=== PATIENT | male | born 1965 | race Caucasian/White ===

== ENCOUNTER 2019-10-28 16:20 | Emergency (ER) | payer OTHER ==
[~2019-10-28] VITALS: Ht 185.4 cm; Wt 93.9 kg
--- OUTSIDE RECORDS SUMMARY | ~2019-10-28 | XMS | Encounter Summary ---
Demographics + + + | Address | [address] | | | [place] [address] | + + + | Home Phone | | + + + | Preferred Language | Unknown | + + + | Marital Status | Legally | + + + | Voodoo Affiliation | 1013 | + + + | Race | Unknown | + + + | Ethnic Group | Unknown | + + + Author + + + | Author | [facility] | | | and [place] | + + + | Organization | [facility] | | | and [place] | + + + | Address | Unknown | + + + | Phone | Unavailable | + + + Support + + + + + | Name | Relationship | Address | Phone | + + + + + | Nikia Borges | ECON | [address] | | | | | [place] [address] | | + + + + + Care Team Providers + +------+ + | Care Technician Telecommunication Systems Name | Role | Phone | + +------+ + | Nikolas Luis MD | PCP | | + +------+ + Encounter Details +--------+ + + + + | Date | Type | Department | Care Team | Description | +--------+ + + + + | 04/25/ | Abstract | [facility] | Ben, | | | 2016 | | CARDIOLOGY [address] | | | | | [place], | [place], | | | | | [place] [address] | [place] [address] | | | | | [phone] | [phone] | | | | | | | | +--------+ + + + + Social History + +-------+ +--------+------+ | Tobacco Use | Types | Packs/Day | Years | Date | | | | | Used | | + +-------+ +--------+------+ | Never Smoker | | | | | + +-------+ +--------+------+ + +---+---+---+ | Smokeless Tobacco: | | | | | Never Used | | | | + +---+---+---+ + + +---------+ + | Alcohol Use | Drinks/Week | oz/Week | Comments | + + +---------+ + | No | 0 Standard drinks | 0.0 | | | | or equivalent | | | + + +---------+ + + + + | Sex Assigned at | Date Recorded | | | | + + + | Not on file | | + + + + + + + | Job Start Date | Occupation | Industry | + + + + | Not on file | Not on file | Not on file | + + + + + + + + | Travel History | Travel Start | Travel End | + + + + + + | No recent travel history available. | + + documented as of this encounter Plan of Treatment Not on filedocumented as of this encounter Procedures + +--------+ + + + | Procedure Name | Priori | Date/Time | Associated Diagnosis | Comments | | | ty | | | | + +--------+ + + + | EXTERNAL LAB: BUN | Routin | 04/22/2017 | | Results for this | | | e | | | procedure are in the | | | | | | results section. | + +--------+ + + + | EXTERNAL LAB: | Routin | 04/22/2017 | | Results for this | | GLUCOSE | e | | | procedure are in the | | | | | | results section. | + +--------+ + + + | EXTERNAL LAB: ALT | Routin | 04/22/2017 | | Results for this | | | e | | | procedure are in the | | | | | | results section. | + +--------+ + + + | EXTERNAL LAB: AST | Routin | 04/22/2017 | | Results for this | | | e | | | procedure are in the | | | | | | results section. | + +--------+ + + + | EXTERNAL LAB: | Routin | 04/22/2017 | | Results for this | | ALKALINE PHOSPHATASE | e | | | procedure are in the | | | | | | results section. | + +--------+ + + + | EXTERNAL LAB: | Routin | 04/22/2017 | | Results for this | | BILIRUBIN, TOTAL | e | | | procedure are in the | | | | | | results section. | + +--------+ + + + | EXTERNAL LAB: | Routin | 04/22/2017 | | Results for this | | ALBUMIN | e | | | procedure are in the | | | | | | results section. | + +--------+ + + + | EXTERNAL LAB: | Routin | 04/22/2017 | | Results for this | | PROTEIN, TOTAL | e | | | procedure are in the | | | | | | results section. | + +--------+ + + + | EXTERNAL LAB: | Routin | 04/22/2017 | | Results for this | | CALCIUM | e | | | procedure are in the | | | | | | results section. | + +--------+ + + + | EXTERNAL LAB: CARBON | Routin | 04/22/2017 | | Results for this | | DIOXIDE | e | | | procedure are in the | | | | | | results section. | + +--------+ + + + | EXTERNAL LAB: | Routin | 04/22/2017 | | Results for this | | CHLORIDE | e | | | procedure are in the | | | | | | results section. | + +--------+ + + + | EXTERNAL LAB: | Routin | 04/22/2017 | | Results for this | | POTASSIUM | e | | | procedure are in the | | | | | | results section. | + +--------+ + + + | EXTERNAL LAB: SODIUM | Routin | 04/22/2017 | | Results for this | | | e | | | procedure are in the | | | | | | results section. | + +--------+ + + + | EXTERNAL LAB: | Routin | 04/22/2017 | | Results for this | | TRIGLYCERIDES | e | | | procedure are in the | | | | | | results section. | + +--------+ + + + | EXTERNAL LAB: | Routin | 04/22/2017 | | Results for this | | CHOLESTEROL, HDL | e | | | procedure are in the | | | | | | results section. | + +--------+ + + + | EXTERNAL LAB: | Routin | 04/22/2017 | | Results for this | | CHOLESTEROL, TOTAL | e | | | procedure are in the | | | | | | results section. | + +--------+ + + + | EXTERNAL LAB: | Routin | 04/22/2017 | | Results for this | | CHOLESTEROL, LDL | e | | | procedure are in the | | | | | | results section. | + +--------+ + + + | EXTERNAL LAB: EGFR | Routin | 04/22/2017 | | Results for this | | | e | | | procedure are in the | | | | | | results section. | + +--------+ + + + | EXTERNAL LAB: | Routin | 04/22/2017 | | Results for this | | CREATININE | e | | | procedure are in the | | | | | | results section. | + +--------+ + + + | LIPID PANEL | Routin | 04/22/2017 | | Results for this | | | e | | | procedure are in the | | | | | | results section. | + +--------+ + + + | COMPREHENSIVE | Routin | 04/22/2017 | | Results for this | | METABOLIC PANEL | e | | | procedure are in the | | | | | | results section. | + +--------+ + + + documented in this encounter Results Comprehensive Metabolic Panel (04/22/2017) + +-------+ + + + | Component | Value | Ref Range | Performed | Pathologist | | | | | At | Signature | + +-------+ + + + | Anion Gap | 13 | mmol/L | | | + +-------+ + + + | BUN/Creatin | 13.3 | | | | | ine Ratio | | | | | + +-------+ + + + | Globulin | 2.2 | | | | + +-------+ + + + | Albumin/Wen | 2.0 | | | | | bulin Ratio | | | | | + +-------+ + + + + + | Specimen | + + | Blood | + + External Lab: BUN (04/22/2017) + +-------+ + + + | Component | Value | Ref Range | Performed | Pathologist | | | | | At | Signature | + +-------+ + + + | BUN, | 13 | 5 - 23 | | | | External | | | | | + +-------+ + + + External Lab: Glucose (04/22/2017) + +-------+ + + + | Component | Value | Ref Range | Performed | Pathologist | | | | | At | Signature | + +-------+ + + + | Glucose, | 96 | 70 - 100 | | | | External | | | | | + +-------+ + + + External Lab: ALT (04/22/2017) + +-------+ + + + | Component | Value | Ref Range | Performed | Pathologist | | | | | At | Signature | + +-------+ + + + | ALT, | 16 | 7 - 52 | | | | External | | | | | + +-------+ + + + External Lab: AST (04/22/2017) + +-------+ + + + | Component | Value | Ref Range | Performed | Pathologist | | | | | At | Signature | + +-------+ + + + | AST, | 19 | 19 - 39 | | | | External | | | | | + +-------+ + + + External Lab: Alkaline Phosphatase (04/22/2017) + +-------+ + + + | Component | Value | Ref Range | Performed | Pathologist | | | | | At | Signature | + +-------+ + + + | ALP, | 52 | 31 - 120 | | | | External | | | | | + +-------+ + + + External Lab: Bilirubin, Total (04/22/2017) + +-------+ + + + | Component | Value | Ref Range | Performed | Pathologist | | | | | At | Signature | + +-------+ + + + | Bilirubin, | 0.9 | 0 - 1.2 | | | | Total, | | | | | | External | | | | | + +-------+ + + + External Lab: Albumin (04/22/2017) + +-------+ + + + | Component | Value | Ref Range | Performed | Pathologist | | | | | At | Signature | + +-------+ + + + | Albumin, | 4.4 | 3.5 - 5 | | | | External | | | | | + +-------+ + + + External Lab: Protein, Total (04/22/2017) + +-------+ + + + | Component | Value | Ref Range | Performed | Pathologist | | | | | At | Signature | + +-------+ + + + | Protein, | 6.6 | 6 - 8 | | | | Total, | | | | | | External | | | | | + +-------+ + + + External Lab: Calcium (04/22/2017) + +-------+ + + + | Component | Value | Ref Range | Performed | Pathologist | | | | | At | Signature | + +-------+ + + + | Calcium, | 9.5 | 8.4 - 10.2 | | | | External | | | | | + +-------+ + + + External Lab: Carbon Dioxide (04/22/2017) + +-------+ + + + | Component | Value | Ref Range | Performed | Pathologist | | | | | At | Signature | + +-------+ + + + | Carbon | 29 | 19 - 31 | | | | Dioxide, | | | | | | External | | | | | + +-------+ + + + External Lab: Chloride (04/22/2017) + +-------+ + + + | Component | Value | Ref Range | Performed | Pathologist | | | | | At | Signature | + +-------+ + + + | Chloride, | 104 | 95 - 112 | | | | External | | | | | + +-------+ + + + External Lab: Potassium (04/22/2017) + +-------+ + + + | Component | Value | Ref Range | Performed | Pathologist | | | | | At | Signature | + +-------+ + + + | Potassium, | 4.3 | 3.6 - 5.1 | | | | External | | | | | + +-------+ + + + External Lab: Sodium (04/22/2017) + +-------+ + + + | Component | Value | Ref Range | Performed | Pathologist | | | | | At | Signature | + +-------+ + + + | Sodium, | 142 | 132 - 143 | | | | External | | | | | + +-------+ + + + External Lab: eGFR (04/22/2017) + +--------+ + + + | Component | Value | Ref Range | Performed | Pathologist | | | | | At | Signature | + +--------+ + + + | eGFR, | 80 (A) | 60 | | | | External | | | | | + +--------+ + + + + + | Specimen | + + | Blood | + + External Lab: Creatinine (04/22/2017) + +-------+ + + + | Component | Value | Ref Range | Performed | Pathologist | | | | | At | Signature | + +-------+ + + + | Creatinine, | 0.98 | 0.7 - 1.33 | | | | External | | | | | + +-------+ + + + + + | Specimen | + + | Blood | + + Lipid Panel (04/22/2017) + +---------+ + + + | Component | Value | Ref Range | Performed | Pathologist | | | | | At | Signature | + +---------+ + + + | VLDL | 25 | mg/dL | | | + +---------+ + + + | Chol/HDL | 4.1 | | | | | Ratio | | | | | + +---------+ + + + | Non HDL | 150 (A) | 130 | | | | Chol. | | | | | | (LDL+VLDL) | | | | | + +---------+ + + + + + | Specimen | + + | Blood | + + External Lab: Triglycerides (04/22/2017) + +-------+ + + + | Component | Value | Ref Range | Performed | Pathologist | | | | | At | Signature | + +-------+ + + + | Triglycerid | 126 | 150 | | | | es, | | | | | | External | | | | | + +-------+ + + + + + | Specimen | + + | Blood | + + External Lab: Cholesterol, HDL (04/22/2017) + + + + + + | Component | Value | Ref Range | Performed | Pathologist | | | | | At | Signature | + + + + + + | HDL | 48.3 (A) | 40 mg/dl | | | | Cholesterol | | | | | | , External | | | | | + + + + + + + + | Specimen | + + | Blood | + + External Lab: Cholesterol, Total (04/22/2017) + +-------+ + + + | Component | Value | Ref Range | Performed | Pathologist | | | | | At | Signature | + +-------+ + + + | Cholesterol | 198 | 200 mg/dl | | | | , Total, | | | | | | External | | | | | + +-------+ + + + + + | Specimen | + + | Blood | + + External Lab: Cholesterol, LDL (04/22/2017) + +---------+ + + + | Component | Value | Ref Range | Performed | Pathologist | | | | | At | Signature | + +---------+ + + + | LDL | 125 (A) | 100 | | | | Cholesterol | | | | | | , Direct, | | | | | | External | | | | | + +---------+ + + + + + | Specimen | + + | Blood | + + documented in this encounter Visit Diagnoses Not on filedocumented in this encounter"
--- OUTSIDE RECORDS SUMMARY | ~2019-10-28 | XMS | Encounter Summary ---
Demographics + + + | Address | [address] | | | [place] [address] | + + + | Home Phone | | + + + | Preferred Language | Unknown | + + + | Marital Status | Legally | + + + | Bahai Affiliation | 1013 | + + + | Race | Unknown | + + + | Ethnic Group | Unknown | + + + Author + + + | Author | [facility] | | | and [place] | + + + | Organization | [facility] | | | and [place] | + + + | Address | Unknown | + + + | Phone | Unavailable | + + + Support + + + + + | Name | Relationship | Address | Phone | + + + + + | Nikia Borges | ECON | [address] | | | | | [place] [address] | | + + + + + Care Team Providers + +------+ + | Care Manager Security Name | Role | Phone | + +------+ + | Nikolas Luis MD | PCP | | + +------+ + Reason for Referral Diagnostic/Screening (Routine) +--------+--------+ + + + + | Status | Reason | Specialty | Diagnoses / | Referred By | Referred To | | | | | Procedures | Contact | Contact | +--------+--------+ + + + + | Closed | | Radiology | Diagnoses | Donna | [facility] | | | | | Chest pain, | MD Jr | Medicine | | | | | unspecified | [address] | | | | | chest pain | [address] | [place], | | | | | type | [place], | [place] | | | | | Procedures | [place] [address] | [address] | | | | | [place] Nuclear | Phone: | Phone: | | | | | Stress Test | [phone] | [phone] | | | | | (Exercise) | Fax: | Fax: | | | | | CHG | [phone] | [phone] | | | | | MYOCARDIAL | | | | | | | SPECT | | | | | | | MULTIPLE | | | | | | | STUDIES GA | | | | | | | CV STRS TST | | | | | | | XERS&/OR RX | | | | | | | CONT ECG W/O | | | | | | | I&R GA | | | | | | | CARDIAC | | | | | | | STRESS | | | | | | | TST,INTERP/R | | | | | | | EPT ONLY | | | +--------+--------+ + + + + Reason for Visit + + + | Reason | Comments | + + + | New Patient | | + + + | Establish Care | | + + + | Chest Pain | | + + + | Palpitations | | + + + Evaluate & Treat (Routine) +--------+--------+ + + + + | Status | Reason | Specialty | Diagnoses / | Referred By | Referred To | | | | | Procedures | Contact | Contact | +--------+--------+ + + + + | Closed | | Cardiology | Diagnoses | David, | Donna, | | | | | Chest pain, | Sukumar Tavarez, | MD Jr | | | | | unspecified | [address] | | | | | ER | [address] | [address] | | | | | FOLLOW-UP | [facility] ER | [place], | | | | | Procedures | [place], | [place] [address] | | | | | PATIENT SAFETY OFFICER | [place] | Phone: | | | | | | [address] | [phone] | | | | | | Phone: | Fax: | | | | | | [phone] | [phone] | | | | | | Fax: | | | | | | | [phone] | | +--------+--------+ + + + + Encounter Details +--------+---------+ + + + | Date | Type | Department | Care Team | Description | +--------+---------+ + + + | 05/27/ | Office | [facility] | Jr Thompson, | Chest pain, | | 2014 | Visit | CARDIOLOGY [address] | unspecified chest | | | | [address], | [place], | [place] ([place] | | | | [place] [id number] | [place] [phone] | Dx); Palpitations | | | | [phone] | [phone] | | | | | | | | +--------+---------+ + + + Social History + +-------+ [...] + + documented as of this encounter Last Filed Vital Signs + + + + + | Vital Sign | Reading | Time Taken | Comments | + + + + + | Blood Pressure | 142/84 | 05/27/2015 11:31 AM | | | | | PST | | + + + + + | Pulse | 62 | 05/27/2015 11:29 AM | regular | | | | PST | | + + + + + | Temperature | - | - | | + + + + + | Respiratory Rate | 16 | 05/27/2015 11:29 AM | | | | | PST | | + + + + + | Oxygen Saturation | - | - | | + + + + + | Inhaled Oxygen | - | - | | | Concentration | | | | + + + + + | Weight | 102.4 kg (225 lb | 05/27/2015 11:29 AM | | | | 11.2 oz) | PST | | + + + + + | Height | 182.9 cm (6') | 05/27/2015 11:29 AM | | | | | PST | | + + + + + | Body Mass Index | 30.61 | 05/27/2015 11:29 AM | | | | | PST | | + + + + + documented in this encounter Patient Instructions Patient Instructions Erica Thomas RN - 05/27/2015 12:18 PM PST1. Blood test: Fasting- 12 hours prior to test, no food, no caffiene, water is ok Date Due: anytime between now and your next visit Where to go for labs: Lab of your choice, please see lab orders, take them with you to the lab. 2. Exercise Myoview Date: Check-in Time: Where to Check In: Instructions 1. Nothing to eat or drink anything 4 hours prior to test 2. DO NOT drink caffeine 12 hours prior to the test. 3. You can take all other medications the morning of the test with a small sip of water. 4. Please bring a list of your current medications with you. 5. Exercise Myoview: wear comfortable clothes and walking shoes. Resting Portion of test: Date: Check-in Time: Where to Check In: 3. Follow up appointment: 4 weeks Provider: Date: Check-In Time: documented in this encounter Progress Notes Jr Thompson MD - 05/27/2015 11:42 AM PSTFormatting of this note might be different f rom the original. PATIENT NAME: Sukumar Pennington : 1965: AGE: 49 y.o. REFERRED BY: Sukumar Hernandez PRIMARY CARE: Nikolas Luis NEW PATIENT OFFICE VISIT Date of Service: 05/27/15 HISTORY OF PRESENT ILLNESS: Sukumar Pennington is a 49 y.o. male with a history of hyperlipidemia. He is being see n today for chest pain. Patient is usually a very active and healthy individual. He is working as a [employer]. He en joys working with the [employer], [employer] building [facility]. He also enjoys working out, walking on treadmill and elliptical machine. He is in his usual state of health until 2 months ago when he started to have symptoms of "pinprick on my chest". Chest pain happens on the left side of the chest wall. He denies other associated symptoms i.e. shortness of breath, palp itation, dizziness, lightheadedness or leg swelling. On 05/24/15, the chest pain got so bad that he decided to come into the ED of [place] where all the original blood work was neg ative. Today, patient continued with occasional, nonexertional chest discomfort. Patient denies breathlessness. There is no palpitation dizziness or lightheadedness. There is no ankle o r leg swelling. Patient can sleep on one pillow at night without difficulty breathing. CURRENT PROBLEMS Patient Active Problem List Diagnosis Chest pain Palpitations MEDICAL, SURGICAL, AND PERSONAL HISTORY Past Surgical History Procedure Laterality Date Hip surgery Right Finger amputation right hand , 4 digits Vasectomy History reviewed. No pertinent family history. Family Status Relation Status Age Mother Alive Heart valve Father 71 Diabetes, Lymphoma Brother Alive Brother Alive Sister Alive History Social History Marital Status: Spouse Name: Nataly Number of Children: 4 Years of Education: N/A Occupational History [employer] Social History Main Topics Smoking status: Never Smoker Smokeless tobacco: Never Used Alcohol Use: No Drug Use: No Sexual Activity: None Other Topics Concern None Social History Narrative Exercise:eliptical machine, weights Caffeine: 1 cup of coffee daily Living situation: with Nataly CURRENT MEDICATIONS Current Outpatient Prescriptions Medication Sig Dispense Refill aspirin 325 mg tablet Take 325 mg by mouth Daily. No current facility-administered medications for this visit. ALLERGIES Allergies Allergen Reactions Simvastatin Rash and Other (See Comments) Body aches, rash , his head felt foggy ROS Review of Systems Constitutional: Negative for fever, chills, weight loss, malaise/fatigue and diaphoresis. HENT: Negative for congestion, hearing loss, nosebleeds, sore throat and tinnitus. Eyes: Negative for blurred vision and double vision. Respiratory: Negative for cough, shortness of breath and wheezing. Cardiovascular: Positive for chest pain and palpitations. Negative for orthopnea, claudicat ion, leg swelling and PND. Gastrointestinal: Negative for heartburn, nausea, vomiting, abdominal pain, diarrhea, const ipation, blood in stool and melena. Genitourinary: Negative for dysuria, urgency, frequency, hematuria and flank pain. Musculoskeletal: Positive for back pain and neck pain. Negative for myalgias, joint pain an d falls. Skin: Negative for itching and rash. Neurological: Negative for dizziness, tingling, tremors, seizures, loss of consciousness, w eakness and headaches. Endo/Heme/Allergies: Negative for environmental allergies and polydipsia. Does not bruise/b leed easily. Psychiatric/Behavioral: Negative for memory loss. The patient does not have insomnia. OBJECTIVE: PHYSICAL EXAM BP 142/84 mmHg | Pulse 62 | Resp 16 | Ht 1.829 m (6') | Wt 102.377 kg (225 lb 11.2 oz) | BM I 30.60 kg/m2 Physical Exam Constitutional: He appears well-developed and well-nourished. No distress. Male individual without acute distress. Neck: Normal carotid pulses, no hepatojugular reflux and no JVD present. Carotid bruit is n ot present. Cardiovascular: Normal rate, regular rhythm, S1 normal, S2 normal, normal heart sounds, int act distal pulses and normal pulses. PMI is not displaced. Exam reveals no gallop, no S3, no S4 and no friction rub. No murmur heard. Pulses: Carotid pulses are 2+ on the right side, and 2+ on the left side. Dorsalis pedis pulses are 2+ on the right side, and 2+ on the left side. Pulmonary/Chest: Effort normal and breath sounds normal. No accessory muscle usage. No resp iratory distress. He has no wheezes. He has no rhonchi. He has no rales. Abdominal: Normal appearance, normal aorta and bowel sounds are normal. He exhibits no abdo cecilia bruit. There is no hepatosplenomegaly. There is no tenderness. Musculoskeletal: He exhibits no edema. Neurological: He is alert. Gait normal. Skin: Skin is warm and dry. Psychiatric: He has a normal mood and affect. His mood appears not anxious. He does not exh ibit a depressed mood. ECG: Sinus rhythm, left ventricular hypertrophy by voltage. LAB RESULTS: LIPID No results found for: CHOL, TRIG, HDL, LDL, CHOLHDL, LDLEX, HDLEX, TRIGEX, CHOLEX CHEMISTRY Lab Results Component Value Date GLU 94 05/24/2015 NA 142 05/24/2015 K 4.1 05/24/2015 CL 103 05/24/2015 CO2 29 05/24/2015 CALCIUM 9.0 05/24/2015 ALKPHOS 60 05/24/2015 AST 22 05/24/2015 ALT 18 05/24/2015 BILITOT 0.8 05/24/2015 CREA 1.05 05/24/2015 BUN 13 05/24/2015 HEMATOLOGY Lab Results Component Value Date WBC 7.4 05/24/2015 HGB 16.3 05/24/2015 HCT 49.0 05/24/2015 PLT 144 05/24/2015 I reviewed records from Sukumar Hernandez M.D. for office visit on 05/24/15. ASSESSMENT: 1. Atypical chest pain A. Patient has been in his usual state of health until 2 months ago when he started to ward ve symptoms of "pinprick on my chest". Chest pain happens on the left side of the chest wal l. He denies other associated symptoms i.e. shortness of breath, palpitation, dizziness, li ghtheadedness or leg swelling. On 05/24/15, the chest pain got so bad that he decided to co me into the ED of [place] where all the original blood work was negative. B. Today, patient continued with occasional, nonexertional chest discomfort. Patient is usually a very active and healthy individual. He is working as a [employer]. 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 He also enjoys working out, walking on [employer] and [employer] machine. There is no signs and symptoms of overt congestive heart failure . He is in a class I of [place] [employer] functional class. There is no fluid ret ention on physical examination. 2. Hyperlipidemia A. He was on simvastatin for 6 months but has stopped taking it 2 months ago. PLAN: 1. I spend time at length talking about natural course, treatment and prognosis of chest p ain rule out myocardial ischemia. 2. He is a candidate for exercise SPECT MPI. 3. Check fasting lipid profile. 4. Follow-up in 4 weeks. Electronically signed by: Jr Thompson MD [facility] 05/27/2015 Portions of this chart may have been created with [employer] voice recognition software. Occasi onal wrong-word or sound-alike substitutions may have occurred due to the inherent sanders itations of voice recognition software. Please read the chart carefully and recognize, using context, where these substitutions have occurred. documented in this encounter Plan of Treatment + +------+--------+ + + | Name | Type | Priori | Associated Diagnoses | Order Schedule | | | | ty | | | + +------+--------+ + + | Lipid Panel | Lab | Routin | Chest pain | Expected: | | | | e | | 05/27/2015, Expires: | | | | | | 05/26/2016 | + +------+--------+ + + documented as of this encounter Procedures + +--------+ + + + | Procedure Name | Priori | Date/Time | Associated Diagnosis | Comments | | | ty | | | | + +--------+ + + + | ECG 12 LEAD | Routin | 05/27/2015 | Chest pain, | Results for this | | | e | 11:34 AM | unspecified chest | procedure are in the | | | | PST | pain type | results section. | | | | | Palpitations | | + +--------+ + + + documented in this encounter Results [place] Nuclear Stress Test (Exercise) (06/06/2015 12:45 PM PST) + + | Specimen | + + | | + + + + + | Impressions | Performed At | + + + | 1. Exercise EKG is negative. 2. Blood pressure | [facility] | | response is normal. 3. The patient had Fatigue but no | [facility] | | chest pain during the procedure. 4. There is no | [facility] | | arrhythmia during procedure. 5. Exercise tolerance is | - IMAGING | | Above average for age. 6. Normal exercise sestamibi | | | myocardial perfusion imaging study. normal left ventricular size, | | | wall thickness and motion. Preserved left ventricular systolic | | | function. LVEF by gated SPECT is 54 %. Signed by: | | | Jr Thompson MD [facility] 06/06/2015, 12:48 | | + + + + + + | Narrative | Performed At | + + + | NUCLEAR MEDICINE STRESS TEST REPORT | [facility] | | Patient Name: Sukumar Pennington Study Date: 06/06/2015 | [facility] | | Primary Care Provider: Nikolas Luis : [facility] | | 1965 Age: 49 y.o. Gender: male CLINICAL | - IMAGING | | HISTORY/DIAGNOSIS: Chest pain EXERCISE SESTAMIBI STRESS TEST | | | Indication: chest pain Procedure: The patient exercised | | | using a standard Ran protocol and walked for 2 minute 0 seconds | | | into stage V achieving 14.8 METS. Total exercise duration was 14 | | | minutes 0 seconds. Heart rate increased from 72 beats per minute | | | to 172 beats per minute which is 101 % of the maximal predicted | | | heart rate. Blood pressure christie from 123/90 mmHg to 181/78 mmHg. The | | | test was stopped because of achievement of targeted heart rate. | | | Baseline EKG showed a sinus rhythm, normal EKG. At the peak of | | | exercise, 10.3 mCi of Sestamibi was given intravenously. The | | | patient was taken to the Nuclear Medicine Department. The SPECT | | | myocardial perfusion imaging was acquired with wall motion analysis. | | | The rest imaging was performed using 30.6 mCi sestamibi | | | intravenous injection. The repeated SPECT myocardial perfusion | | | imaging was acquired with wall motion analysis. Exercise Sestamibi | | | Myocardial Perfusion Imaging Result: The tomographic images, | | | reviewed without the attenuation compensation resolution, revealed | | | a normal myocardial perfusion pattern as seen in short axis, | | | vertical long axis, and horizontal long axis projections. The left | | | ventricular cavity is normal. The rest imaging is also normal. | | | Gated SPECT reveals a normal left ventricular wall thickness | | | and motion. Preserved left ventricular systolic function. LVEF by | | | gated SPECT is 54 %. | | + + + + + + + + | Performing | Address | City/State/Zipcode | Phone Number | | Organization | | | | + + + + + | [address] | [address] | [place] | [phone] | | [facility] | | [address] | | | - IMAGING | | | | + + + + + ECG 12 lead (05/27/2015 11:34 AM PST) + + + + + + | Component | Value | Ref Range | Performed | Pathologist | | | | | At | Signature | + + + + + + | VENTRICULAR | 60 | BPM | [facility] | | | RATE EKG | | | | | + + + + + + | ATRIAL RATE | 60 | BPM | [facility] | | + + + + + + | P-R | 202 | ms | [facility] | | | INTERVAL | | | | | + + + + + + | QRS | 98 | ms | [facility] | | | DURATION | | | | | + + + + + + | Q-T | 412 | ms | [facility] | | | INTERVAL | | | | | + + + + + + | Q-T | 412 | ms | [facility] | | | INTERVAL | | | | | | (CORRECTED) | | | | | + + + + + + | P WAVE AXIS | 59 | degrees | [facility] | | + + + + + + | QRS AXIS | 37 | degrees | [facility] | | + + + + + + | T AXIS | 35 | degrees | [facility] | | + + + + + + | INTERPRETAT | Normal sinus | | [facility] | | | ION TEXT | rhythmMinimal voltage | | | | | | criteria for LVH, may be | | | | | | normal | | | | | | variantBorderline | | | | | | ECGWhen compared with | | | | | | ECG of 24-MAY-2015 | | | | | | 17:59,Criteria for | | | | | | Septal infarct are no | | | | | | longer presentConfirmed | | | | | | by DONNA FLORES, JR | | | | | | ([id number]) on 05/27/2015 | | | | | | 2:02:08 PM | | | | + + + + + + + + | Specimen | + + | | + + + + + | Narrative | Performed At | + + + | | | + + + + +---------+ + + | Performing | Address | City/State/Zipcode | Phone Number | | Organization | | | | + +---------+ + + | [facility] | | | | + +---------+ + + documented in this encounter Visit Diagnoses + + | Diagnosis | + + | Chest pain, unspecified chest pain type - Primary | + + | Palpitations | + + documented in this encounter
--- OUTSIDE RECORDS SUMMARY | ~2019-10-28 | XMS | Clinical Summary ---
Demographics + + + | Address | [address] | | | [place] [address] | + + + | Home Phone | | + + + | Preferred Language | Unknown | + + + | Marital Status | Single | + + + | Mormon Affiliation | 1013 | + + + | Race | Unknown | + + + | Ethnic Group | Unknown | + + + Author + + + | Author | [facility] (Historical as of | | | 02-10-19) | + + + | Organization | [facility] (Historical as of | | | 02-10-19) | + + + | Address | Unknown | + + + | Phone | Unavailable | + + + Support + + +---------+ + | Name | Relationship | Address | Phone | + + +---------+ + | None,Provided | ECON | Unknown | | + + +---------+ + | Anayeli Pretty | ECON | Unknown | | + + +---------+ + Care Team Providers + +------+ + | Care Filenet Admin Name | Role | Phone | + +------+ + | Boy Moran MD | PP | | + +------+ + Allergies Not on File Current Medications Not on file Active Problems Not on file Social History + +-------+ +--------+------+ | Tobacco Use | Types | Packs/Day | Years | Date | | | | | Used | | + +-------+ +--------+------+ | Never Assessed | | | | | + +-------+ +--------+------+ + + + | Sex Assigned at | Date Recorded | | | | + + + | Not on file | | + + + Last Filed Vital Signs + + + + | Vital Sign | Reading | Time Taken | + + + + | Blood Pressure | - | - | + + + + | Pulse | - | - | + + + + | Temperature | - | - | + + + + | Respiratory Rate | - | - | + + + + | Oxygen Saturation | - | - | + + + + | Inhaled Oxygen | - | - | | Concentration | | | + + + + | Weight | 93 kg (205 lb) | 01/24/2019 7:54 AM PDT | + + + + | Height | - | - | + + + + | Body Mass Index | - | - | + + + + Plan of Treatment Not on file Results Not on filefrom Last 3 Months Insurance + +--------+ +------+-------+ + | Payer | Benefi | Subscriber | Type | Phone | Address | | | t Plan | ID | | | | | | / | | | | | | | Group | | | | | + +--------+ +------+-------+ + | MEDICAID | [employer] | [id number] | | | [address] | | | [place] | | | | [place] | | | [place] | | | | [id number] | | | [employer] | | | | | + +--------+ +------+-------+ + + +--------+ +--------+ + + | Guarantor Name | Accoun | Relation to | Date | Phone | Billing Address | | | t Type | Patient | of | | | | | | | | | | + +--------+ +--------+ + + | KULDIP PRETTY | Person | Self [birth year] | Home: | [address] [place], | | | al/Isaac | | 1966 | [phone] [place] [address] | | | adam | | | [birth year] | | + +--------+ +--------+ + +"
--- OUTSIDE RECORDS SUMMARY | ~2019-10-28 | XMS | Encounter Summary ---
Demographics + + + | Address | [address] | | | [place] [address] | + + + | Home Phone | | + + + | Preferred Language | Unknown | + + + | Marital Status | Legally | + + + | Mandaen Affiliation | 1013 | + + + | Race | Unknown | + + + | Ethnic Group | Unknown | + + + Author + + + | Author | [facility] | | | and [place] | + + + | Organization | [facility] | | | and [place] | + + + | Address | Unknown | + + + | Phone | Unavailable | + + + Support + + + + + | Name | Relationship | Address | Phone | + + + + + | Nikia Borges | ECON | [address] | | | | | [place] [address] | | + + + + + Care Team Providers + +------+ + | Care Arborer Name | Role | Phone | + +------+ + | Nikolas Luis MD | PCP | | + +------+ + Reason for Visit + + + | Reason | Comments | + + + | Follow-up | | + + + | Palpitations | | + + + Encounter Details +--------+---------+ + + + | Date | Type | Department | Care Team | Description | +--------+---------+ + + + | 02/18/ | Office | [facility] | [place], | Chest pain in adult | | 2016 | Visit | CARDIOLOGY [address] | [address] | (Primary Dx); | | | | [place], | [place], | Palpitations; | | | | [place] [address] | [place] [address] | Hyperlipidemia, | | | | [phone] | [phone] | mixed | | | | | | | [...] + + + | Blood Pressure | 128/74 | 02/19/2016 11:42 AM | | | | | PDT | | + + + + + | Pulse | 62 | 02/19/2016 11:42 AM | | | | | PDT | | + + + + + | Temperature | - | - | | + + + + + | Respiratory Rate | 14 | 02/19/2016 11:42 AM | | | | | PDT | | + + + + + | Oxygen Saturation | - | - | | + + + + + | Inhaled Oxygen | - | - | | | Concentration | | | | + + + + + | Weight | 104.3 kg (230 lb) | 02/19/2016 11:42 AM | | | | | PDT | | + + + + + | Height | 182.9 cm (6') | 02/19/2016 11:42 AM | | | | | PDT | | + + + + + | Body Mass Index | 31.19 | 02/19/2016 11:42 AM | | | | | PDT | | + + + + + documented in this encounter Progress Notes Vida Sepulveda ARNP - 02/19/2016 11:38 AM PDTFormatting of this note might be different f rom the original. PATIENT NAME: Sukumar Pennington : 1965: AGE: 50 y.o. PRIMARY CARE: Nikolas Luis OUTPATIENT FOLLOW UP VISIT Date of Service: 02/19/2016 HISTORY OF PRESENT ILLNESS: Sukumar Pennington is a 50 y.o. male with a history of mixed hyperlipidemia. He is becky ng seen today for follow up chest pain, hyperlipidemia. He was last seen 08/14/2015 at which time he was to continue same therapeutic medical regim en and follow up in 6 months. Since that time, he has been "feeling well". He has had a goo d energy level. He tries to stay active. He is using the elliptical 45 minutes 6 days a wee k. He enjoys doing projects around his house in his spare time. He has not had any chest pa in or discomfort at rest or with exertion. He has not noticed shortness of breath. He has not had any lightheadedness or dizziness. He has not noticed palpitations. He has not had leg swelling. He sleeps on 1 pillow at night without any shortness of breath. He started red yeast rice. MEDICAL, SURGICAL, AND PERSONAL HISTORY Past Medical, Surgical, Family, and Social History are reviewed in EPIC. CURRENT PROBLEMS Patient Active Problem List Diagnosis Chest pain in adult Palpitations Hyperlipidemia, mixed CURRENT MEDICATIONS Current Outpatient Prescriptions Medication Sig Dispense Refill aspirin 325 mg tablet Take 325 mg by mouth Daily. [place]-3 Fatty Acids (FISH OIL) 1200 MG CAPS Take 1,200 mg by mouth Daily. 30 each 11 pravastatin (PRAVACHOL) 40 MG tablet Take 1 tablet by mouth nightly. 30 tablet 11 No current facility-administered medications for this visit. ALLERGIES Allergies Allergen Reactions Simvastatin Rash and Other (See Comments) Body aches, rash , his head felt foggy ROS Review of Systems Constitutional: Negative for malaise/fatigue. Respiratory: Negative for shortness of breath. Cardiovascular: Negative for chest pain, palpitations and leg swelling. Neurological: Negative for dizziness and weakness. Lightheaded = No OBJECTIVE: PHYSICAL EXAM BP 128/74 mmHg | Pulse 62 | Resp 14 | Ht 1.829 m (6') | Wt 104.327 kg (230 lb) | BMI 31.19 kg/m2 Physical Exam Constitutional: He appears well-developed and well-nourished. No distress. Male individual without acute distress. Neck: Normal carotid pulses, no hepatojugular reflux and no JVD present. Carotid bruit is n ot present. Cardiovascular: Regular rhythm, S1 normal, S2 normal, normal heart sounds, intact distal pu lses and normal pulses. Bradycardia present. PMI is not displaced. Exam reveals no gallop , no S3, no S4 and no friction [...] not exh ibit a depressed mood. ECG: I personally independently reviewed ECG tracing during this visit (interpreted and ricky led by another provider- Dr. Tohmpson) from 05/27/2015. LAB RESULTS reviewed during visit today primarily from [facility]: LIPID Lab Results Component Value Date CHOLHDL 4.0 08/06/2015 LDLEX 123* 08/06/2015 HDLEX 46.7 08/06/2015 TRIGEX 96 08/06/2015 CHOLEX 189 08/06/2015 CHEMISTRY Lab Results Component Value Date GLU 94 05/24/2015 GLUEX 92 08/06/2015 NA 142 05/24/2015 NAEX 142 08/06/2015 K 4.1 05/24/2015 KEX 5 08/06/2015 CL 103 05/24/2015 CLEX 107 08/06/2015 CO2 29 05/24/2015 CO2EX 27 08/06/2015 CALCIUM 9.0 05/24/2015 ALKPHOS 60 05/24/2015 AST 22 05/24/2015 ASTEX 16 08/06/2015 ALT 18 05/24/2015 ALTEX 13 08/06/2015 BILITOT 0.8 05/24/2015 CREA 1.05 05/24/2015 BUN 13 05/24/2015 EGFREX 70 08/06/2015 CREEX 1.11 08/06/2015 HEMATOLOGY Lab Results Component Value Date WBC 7.4 05/24/2015 HGB 16.3 05/24/2015 HCT 49.0 05/24/2015 PLT 144 05/24/2015 I reviewed records from [facility] for office visit on 08/14/2015 which is summarized in the HPI. Above data and testing is reviewed this visit; testing below is historical data unless othe rwise specified. ASSESSMENT: 1. Atypical chest pain: A. Patient has been in his usual [...] to co me into the ED of [place] where all the original blood work was negative. B. Stress Test 06/06/15, shows exercise EKG is negative, blood pressure response is normal , the patient had fatigue but no chest pain during the procedure, there is no arrhythmia dur ing procedure, exercise tolerance is above average for age, normal exercise sestamibi myocar dial perfusion imaging study, normal left ventricular size, wall thickness and motion, prese rved left ventricular systolic function, LVEF by gated SPECT is 54 %. C. Today, patient remains asymptomatic for angina, dyspnea or palpitations. His energy le viecnte is good and he remains physically active exercising on a daily basis without any symptom s. He is in a class I of [place] Heart Association functional class. There is no signs and symptoms of overt congestive heart failure. There are no fluid retention on physical examin ation. 2. Palpitations: A. Holter Monitor 05/24/15, shows predominant rhythm is normal sinus with the heart rate r anging between 48 and 173 BPM, average heart rate was 72 BPM during the 47:30 hour recording , very rare PVC s, all singles, very rare PAC s, 896 runs of bradycardia, the longest ru n was 689 beats (02:56-2) and a minimum rate of 41 BPM (05:36-2), 29 runs of sinus tachycard ia, longest run was 2555 beats (08:10-2) and a maximum rate of 176 BPM (08:38-2), patient re ported two symptoms of upper left chest "twitching or pulsating." B. Symptoms have improved. 3. Hyperlipidemia, mixed: A. His lipid profile has improved drastically. He will continue with same regimen PLAN: 1. The current medical regimen is effective; continue present plan and medications. He ward s been encouraged to continue with physical activity and regular exercise 2. He will follow up in 6 months, or sooner with concerns. He will have lipid profile repe ated before his appointment Portions of this chart may have been created with [employer] voice recognition software. Occasi onal wrong-word or [...] | + +------+--------+ + + | Lipid Profile | Lab | Routin | Hyperlipidemia, | 1 Occurrences | | | | e | mixed | starting 02/19/2016 | | | | | | until 02/18/2017 | + +------+--------+ + + | Comprehensive | Lab | Routin | Hyperlipidemia, | 1 Occurrences | | Metabolic Panel | | e | mixed | starting 02/19/2016 | | | | | | until 02/18/2017 | + +------+--------+ + + documented as of this encounter Visit Diagnoses + + | Diagnosis | + + | Chest pain in adult - Primary | + + | Palpitations | + + | Hyperlipidemia, mixed Mixed hyperlipidemia | + + documented in this encounter
--- OUTSIDE RECORDS SUMMARY | ~2019-10-28 | XMS | Encounter Summary ---
Demographics + + + | Address | [address] | | | [place] [address] | + + + | Home Phone | | + + + | Preferred Language | Unknown | + + + | Marital Status | Legally | + + + | Congregation Affiliation | 1013 | + + + | Race | Unknown | + + + | Ethnic Group | Unknown | + + + Author + + + | Author | [facility] | | | and [place] | + + + | Organization | [facility] | | | and [place] [...] | | | | | [place] [address] | | + + + + + Care Team Providers + +------+ + | Care Immigration Inspector Name | Role | Phone | + [...] Description | +--------+---------+ + + + | 08/24/ | Office | [facility] | [place], | Chest pain in adult | | 2017 | Visit | CARDIOLOGY [address] | [address] | (Primary Dx); | | | | [place], | [place], | Palpitations; | | | | [place] [phone] | [place] [phone] | Hyperlipidemia, | | | | [phone] | [phone] | mixed | | | | | [...] + + + | Blood Pressure | 128/72 | 08/24/2016 9:18 AM | | | | | PST | | + + + + + | Pulse | 76 | 08/24/2016 9:18 AM | | | | | PST | | + + + + + | Temperature | - | - | | + + + + + | Respiratory Rate | 12 | 08/24/2016 9:18 AM | | | | | PST | | + + + + + | Oxygen Saturation | - | - | | + + + + + | Inhaled Oxygen | - | - | | | Concentration | | | | + + + + + | Weight | 100.2 kg (221 lb) | 08/24/2016 9:18 AM | | | | | PST | | + + + + + | Height | 182.9 cm (6') | 08/24/2016 9:18 AM | | | | | PST | | + + + + + | Body Mass Index | 29.97 | 08/24/2016 9:18 AM | | | | | PST | | + + + + + documented in this encounter Progress Notes Vida Contreras ARNP - 08/24/2016 9:12 AM PSTFormatting of this note might be differen t from the original. PATIENT NAME: Sukumar Pennington : 1965: AGE: 50 y.o. PRIMARY CARE: Nikolas Luis OUTPATIENT FOLLOW UP VISIT Date of Service: 08/24/2016 HISTORY OF PRESENT ILLNESS: Sukumar Pennington is a 50 y.o. male with a history of mixed hyperlipidemia. He is becky mikhail seen today for follow up chest pain and hyperlipidemia. He was last seen 02/19/2016 at which time he was to continue pravastatin 40 mg by mouth boom ly at bedtime and follow-up in 6 months. Since that time, patient discontinued taking his p ravastatin and switched to taking red rice yeast instead. His cholesterol panel this minerva joe shows that it his numbers have gone up again. He has had a good energy level. He tries to stay active. He has been exercising He enjoys working around his property in his spare [employer]. He has not had any chest pain or discomfort at rest or with exertion. He has not notic ed shortness of breath. He has not had any lightheadedness or dizziness. He has not notice d palpitations. He has not had leg swelling. He is able to sleep laying down at night with out any symptoms of shortness of breath. He is going to the [facility] and wants to know w hat he needs to take for travel. MEDICAL, SURGICAL, AND PERSONAL HISTORY Past Medical, Surgical, Family, and Social History are reviewed in EPIC. CURRENT PROBLEMS Patient Active Problem List Diagnosis Chest pain in adult Palpitations Hyperlipidemia, mixed CURRENT MEDICATIONS Current Outpatient Prescriptions Medication Sig Dispense Refill aspirin 325 mg tablet Take 325 mg by mouth Daily. [place]-3 Fatty Acids (FISH OIL) 1200 MG CAPS Take 1,200 mg by mouth Daily. 30 each 11 pravastatin (PRAVACHOL) 40 MG tablet Take 1 tablet by mouth nightly. (Patient taking di fferently: Take 40 mg by mouth nightly. PATIENT STATED NO LONGER TAKING THIS MEDICATION. STA FELICIA ON 08/24/2016.) 30 tablet 11 Red Yeast Rice Extract (RED YEAST RICE PO) Take 2 tablets by mouth 2 times daily. No current facility-administered medications for this visit. ALLERGIES Allergies Allergen Reactions Simvastatin Rash and Other (See Comments) Body aches, rash , his head felt foggy ROS Review of Systems Constitutional: Negative for fever, chills, weight loss, malaise/fatigue and diaphoresis. HENT: Negative for congestion, hearing loss, nosebleeds and tinnitus. Dental Problems = No Eyes: Negative for blurred vision and double vision. Respiratory: Negative for shortness of breath. Cardiovascular: Negative for chest pain, palpitations and leg swelling. Gastrointestinal: Negative for nausea, vomiting, diarrhea, constipation and blood in stool. Genitourinary: Negative for dysuria, urgency, frequency and hematuria. Musculoskeletal: Negative for myalgias, back pain, joint pain, falls and neck pain. Gait Problems = No Skin: Negative for itching and rash. Neurological: Negative for dizziness, tingling, tremors, speech change, seizures, loss of c onsciousness and weakness. Lightheaded = No Endo/Heme/Allergies: Does not bruise/bleed easily. Psychiatric/Behavioral: Negative for memory loss. The patient is not nervous/anxious and do es not have insomnia. OBJECTIVE: PHYSICAL EXAM BP 128/72 mmHg | Pulse 76 | Resp 12 | Ht 1.829 m (6') | Wt 100.245 kg (221 lb) | BMI 29.97 kg/m2 Physical Exam Constitutional: He appears well-developed [...] visit (interpreted and ricky led by another provider): Results for orders placed or performed in visit on 08/24/16 ECG 12 lead Result Value Ref Range INTERPRETATION TEXT shows a sinus bradycardia rhythm with a heart rate of 54 bpm with no acute ST T change s. Conduction shows no blocks LAB RESULTS reviewed during visit today primarily from [facility]: LIPID Lab Results Component Value Date CHOLHDL 5.2* 08/13/2016 LDLEX 176* 08/13/2016 HDLEX 46.5 08/13/2016 TRIGEX 108 08/13/2016 CHOLEX 244* 08/13/2016 CHEMISTRY Lab Results Component Value Date GLU 94 05/24/2015 GLUEX 96 08/13/2016 NA 142 05/24/2015 NAEX 141 08/13/2016 K 4.1 05/24/2015 KEX 4.7 08/13/2016 CL 103 05/24/2015 CLEX 105 08/13/2016 CO2 29 05/24/2015 CO2EX 27 08/13/2016 CALCIUM 9.0 05/24/2015 ALKPHOS 60 05/24/2015 AST 22 05/24/2015 ASTEX 19 08/13/2016 ALT 18 05/24/2015 ALTEX 14 08/13/2016 BILITOT 0.8 05/24/2015 CREA 1.05 05/24/2015 BUN 13 05/24/2015 EGFREX 63 08/13/2016 CREEX 1.22 08/13/2016 HEMATOLOGY Lab Results Component Value Date WBC 7.4 05/24/2015 HGB 16.3 05/24/2015 HCT 49.0 05/24/2015 PLT 144 05/24/2015 I reviewed records from [facility] for office visit on 01/2016 whi ch is summarized in the HPI. Above data and testing is reviewed this visit; testing below is historical data unless othe rwise specified. ASSESSMENT: 1. Atypical chest pain: A. Patient has been in his usual state of health until 2 months a go when he started to have symptoms of "pinprick on my chest". Chest pain happens on the l eft side of the chest wall. He denies other associated symptoms i.e. shortness of breath, palpitation, dizziness, lightheadedness or leg swelling. On 05/24/15, the chest pain got s o bad that he decided to come into the ED of [place] where all the original blood work wa s negative. B. Stress Test 06/06/15, shows exercise EKG is negative, blood pres sure response is normal, the patient had fatigue but no chest pain during the procedure, the re is no arrhythmia during procedure, exercise tolerance is above average for age, normal ex ercise sestamibi myocardial perfusion imaging study, normal left ventricular size, wall thic kness and motion, preserved left ventricular systolic function, LVEF by gated SPECT is 54 %. C. Today, patient remains asymptomatic for angina, dyspnea or palpi tations. His energy level is good and he remains physically active exercising on a daily b asis without any symptoms. He is in a class I of [place] Heart Association functional class . There is no signs and symptoms of overt congestive heart failure. There are no fluid ret ention on physical examination. 2. Palpitations: A. Holter Monitor 05/24/15, shows predominant rhythm is normal sinu s with the heart rate ranging between 48 and 173 BPM, average heart rate was 72 BPM during t he 47:30 hour recording, very rare PVC s, all singles, very rare PAC s, 896 runs of deana ycardia, the longest run was 689 beats (02:56-2) and a minimum rate of 41 BPM (05:36-2), 29 runs of sinus tachycardia, longest run was 2555 beats (08:10-2) and a maximum rate of 176 BP M (08:38-2), patient reported two symptoms of upper left chest "twitching or pulsating." B. He remains asymptomatic. 3. Hyperlipidemia, mixed: A. His lipid profile has changed back to his previous numbers. He is not taking statin anymore. We have talked about his [place] scores and he has decided to restart Pravastatin PLAN: 1. Restart pravastatin 40 mg by mouth daily at bedtime 2. He will follow up in 1 year, or sooner with concerns. Portions of this chart may have been created with [employer] voice recognition software. Occasi onal wrong-word or sound-alike substitutions may have occurred due to the inherent sanders itations of voice recognition software. Please read the chart carefully and recognize, using context, where these substitutions have occurred. documented in th is encounter Plan of Treatment Not on filedocumented as of this encounter Procedures + +--------+ + + + | Procedure Name | Priori | Date/Time | Associated Diagnosis | Comments | | | ty | | | | + +--------+ + + + | ECG 12 LEAD | Routin | 08/24/2016 | Chest pain in | Results for this | | | e | 9:27 AM | adult Palpitations | procedure are in the | | | | PST | | results section. | + +--------+ + + + documented in this encounter Results ECG 12 lead (08/24/2016 9:27 AM PST) + + + + + + | Component | Value | Ref Range | Performed | Pathologist | | | | | At | Signature | + + + + + + | VENTRICULAR | 54 | BPM | [facility] | | | RATE EKG | | | | | + + + + + + | ATRIAL RATE | 54 | BPM | [facility] | | + + + + + + | P-R | 202 | ms | [facility] | | | INTERVAL | | | | | + + + + + + | QRS | 100 | ms | [facility] | | | DURATION | | | | | + + + + + + | Q-T | 444 | ms | [facility] | | | INTERVAL | | | | | + + + + + + | Q-T | 421 | ms | [facility] | | | INTERVAL | | | | | | (CORRECTED) | | | | | + + + + + + | P WAVE AXIS | 65 | degrees | [facility] | | + + + + + + | QRS AXIS | 49 | degrees | [facility] | | + + + + + + | T AXIS | 47 | degrees | [facility] | | + + + + + + | INTERPRETAT | Sinus bradycardia with | | [facility] | | | ION TEXT | sinus | | | | | | arrhythmiaOtherwise | | | | | | normal ECGWhen compared | | | | | | with ECG of 27-MAY-2015 | | | | | | 11:34,No significant | | | | | | change was | | | | | | foundConfirmed by | | | | | | JR MANSFIELD MD | | | | | | ([id number]) on 08/24/2016 | | | | | | 12:42:31 PM | | | | + + [...]
--- OUTSIDE RECORDS SUMMARY | ~2019-10-28 | XMS | Encounter Summary ---
Demographics + + + | Address | [address] | | | [place] [address] | + + + | Home Phone | | + + + | Preferred Language | Unknown | + + + | Marital Status | Legally | + + + | Mosque Affiliation | 1013 | + + + | Race | Unknown | + + + | Ethnic Group | Unknown | + + + Author + + + | Author | [facility] | | | and [place] | + + + | Organization | [facility] | | | and [place] | + + + | Address | Unknown | + + + | Phone | Unavailable | + + + Support + + + + + | Name | Relationship | Address | Phone | + + + + + | Nikia Borges | ECON | [address] | | | | | [place] [address] | | + + + + + Care Team Providers + +------+ + | Care Sewer System Supervisor Name | Role | Phone | + +------+ + | Nikolas Luis MD | PCP | | + +------+ + Encounter Details +--------+ + + + + | Date | Type | Department | Care Team | Description | +--------+ + + + + | 01/24/ | Hospital | [facility] | Conversion | Malignant neoplasm | | 2019 | Encounter | [facility] | Transaction, | of prostate (HCC) | | | | [address] | Provider Unknown | | | | | [place], [place] | [phone] | | | | | [address] | (Fax) | | | | | [phone] | | | +--------+ + + + [...] Blood Pressure | - | - | | + + + + + | Pulse | - | - | | + + + + + | Temperature | - | - | | + + + + + | Respiratory Rate | - | - | | + + + + + | Oxygen Saturation | - | - | | + + + + + | Inhaled Oxygen | - | - | | | Concentration | | | | + + + + + | Weight | 93 kg (205 lb) | 01/24/2019 7:54 AM | | | | | PDT | | + + + + + | Height | - | - | | + + + + + | Body Mass Index | 27.8 | 04/27/2017 8:08 AM | | | | | PDT | | + + + + + documented in this encounter Medications at Time of Discharge + + + +---------+ + + | Medication | Sig | Dispensed | Refills | Start | End Date | | | | | | Date | | + + + +---------+ + + | Jeanerette-3 Fatty | Take 1,200 mg by | 30 each | 11 | 06/25/20 | | | Acids (FISH OIL) | mouth Daily. | | | 15 | | | 1200 MG CAPS | | | | | | + + + +---------+ + + | pravastatin | Take 1 tablet by | 90 | 3 | 04/27/20 | | | (PRAVACHOL) 40 MG | mouth nightly. | tablet | | 17 | | | tablet | | | | | | + + + +---------+ + + | Red Yeast Rice | Take 1 tablet by | | 0 | | | | Extract (RED YEAST | mouth every evening. | | | | | | RICE PO) | | | | | | + + + +---------+ + + | sildenafil | Take 1 tablet by | 5 | 1 | 05/26/ | | | (VIAGRA) 25 MG | mouth as needed for | tablet | | 17 | | | tablet | Erectile | | | | | | | Dysfunction. | | | | | + + + +---------+ + + documented as of this encounter Plan of Treatment Not on filedocumented as of this encounter Procedures + +--------+ + + + | Procedure Name | Priori | Date/Time | Associated Diagnosis | Comments | | | ty | | | | + +--------+ + + + | MRI PROSTATE W WO | Routin | 01/24/2019 | | Results for this | | CONTRAST | e | 9:06 AM | | procedure are in the | | | | PDT | | results section. | + +--------+ + + + documented in this encounter Results MRI Prostate w wo Contrast (01/24/2019 9:06 AM PDT) + + | Specimen | + + | | + + + + + | Impressions | Performed At | + + + | 1. Mild prostatomegaly. Multiple BPH nodules seen 2. There is | | | diffuse mild low T2 signal identified throughout the prostate, | | | raising the possibility of prior radiation. Within this background, | | | no convincing evidence of discrete suspicious lesions appreciated | | | 3. No enlarged lymph nodes seen Highest PI RADS score: PI-RADS 2: | | | Low (clinically significant cancer is unlikely to be present) Signed | | | by: Francheska Zamorano, Maikel Sign Date/Time: 01/24/2019 12:24 PM | | + + + + + + | Narrative | Performed At | + + + | MR PELVIS WITHOUT AND WITH IV CONTRAST CLINICAL INFORMATION: | | | Malignant neoplasm of prostate COMPARISON: None PROCEDURE: 1. | | | Axial T1 2. Axial, sagittal, and coronal T2 3. Axial DWI with ADC | | | mapping 4. Axial T2 FS 5. Axial Pre and Post 3D T1 Contrast: 9ML | | | GADAVIST was administered intravenously. FINDINGS: Prostate general: | | | The prostate measures 4.5 cm x 5 cm x 5.1 cm (AP x ML x SI) for a | | | volume of 60 cc. Peripheral zone: There is diffuse mild low T2 signal | | | noted throughout the peripheral zone, suggesting prior radiation | | | changes. No convincing evidence of any discrete suspicious lesions | | | appreciated, although the background change diminishes sensitivity. | | | Transition zone: Typical circumscribed BPH nodules are present. | | | There is diffuse mild low T2 signal identified throughout the | | | transitional zone, suggesting post radiation changes. No convincing | | | evidence of any discrete suspicious lesions appreciated although the | | | background change diminishes sensitivity Anterior fibromuscular | | | stroma: No concerning lesions seen. Pelvic organs: Atrophy of the | | | seminal vesicle seen. No gross evidence of any elmer tumor | | | involvement of the neurovascular bundles appreciated. No enlarged | | | pelvic lymph nodes seen. Urinary bladder is mildly distended. No | | | suspicious lesion noted within the osseous structures, although | | | artifact from right hip metallic hardware diminishes sensitivity. | | + + + + + | Procedure Note | + + | Daryl, Rad Conversion - 02/06/2019 11:32 PM PDT MR PELVIS WITHOUT AND WITH IV CONTRAST | | CLINICAL INFORMATION: | | Malignant neoplasm of prostate | | COMPARISON: | | None | | PROCEDURE: | | 1. Axial T1 | | 2. Axial, sagittal, and coronal T2 | | 3. Axial DWI with ADC mapping | | 4. Axial T2 FS | | 5. Axial Pre and Post 3D T1 | | Contrast: 9ML GADAVIST was administered intravenously. | | FINDINGS: | | Prostate general: The prostate measures 4.5 cm x 5 cm x 5.1 cm (AP x ML | | x SI) for a volume of 60 cc. | | Peripheral zone: There is diffuse mild low T2 signal noted throughout | | the peripheral zone, suggesting prior radiation changes. No convincing | | evidence of any discrete suspicious lesions appreciated, although the | | background change diminishes sensitivity. | | Transition zone: Typical circumscribed BPH nodules are present. There | | is diffuse mild low T2 signal identified throughout the transitional | | zone, suggesting post radiation changes. No convincing evidence of any | | discrete suspicious lesions appreciated although the background change | | diminishes sensitivity | | Anterior fibromuscular stroma: No concerning lesions seen. | | Pelvic organs: | | Atrophy of the seminal vesicle seen. No gross evidence of any elmer | | tumor involvement of the neurovascular bundles appreciated. | | No enlarged pelvic lymph nodes seen. | | Urinary bladder is mildly distended. No suspicious lesion noted within | | the osseous structures, although artifact from right hip metallic | | hardware diminishes sensitivity. | | IMPRESSION: | | 1. Mild prostatomegaly. Multiple BPH nodules seen | | 2. There is diffuse mild low T2 signal identified throughout the | | prostate, raising the possibility of prior radiation. Within this | | background, no convincing evidence of discrete suspicious lesions | | appreciated | | 3. No enlarged lymph nodes seen | | Highest PI RADS score: | | PI-RADS 2: Low (clinically significant cancer is unlikely to be present) | | Signed by: Francheska Zamorano Amit | | Sign Date/Time: 01/24/2019 12:24 PM | + + documented in this encounter Visit Diagnoses + + | Diagnosis | + + | Malignant neoplasm of prostate (HCC) Malignant neoplasm of prostate | + + documented in this encounter"
--- OUTSIDE RECORDS SUMMARY | ~2019-10-28 | XMS | Encounter Summary ---
Demographics + + + | Address | [address] | | | [place] [address] | + + + | Home Phone | | + + + | Preferred Language | Unknown | + + + | Marital Status | Legally | + + + | Yarsanism Affiliation | 1013 | + + + | Race | Unknown | + + + | Ethnic Group | Unknown | + + + Author + + + | Author | [facility] | | | and [place] | + + + | Organization | [facility] | | | and [...] | | | | | [place] [address] | | + + + + + Care Team Providers + +------+ + | Care Patient'S Librarian Name | Role | Phone | + +------+ + | Nikolas Luis MD | PCP | | + +------+ + Encounter Details +--------+ + + + + | Date | Type | Department | Care Team | Description | +--------+ + + + + | 06/16/ | Abstract | [facility] | Nasrin Thompson, | | | 2014 | | CARDIOLOGY [address] | | | | | [place], | [place], | | | | | [place] [phone] | [place] [phone] | | | | | [phone] | [phone] | | | | | | | [...] + | EXTERNAL LAB: | Routin | 05/29/2015 | | Results for this | | TRIGLYCERIDES | e | | | procedure are in the | | | | | | results section. | + +--------+ + + + | EXTERNAL LAB: | Routin | 05/29/2015 | | Results for this | | CHOLESTEROL, HDL | e | | | procedure are in the | | | | | | results section. | + +--------+ + + + | EXTERNAL LAB: | Routin | 05/29/2015 | | Results for this | | CHOLESTEROL, TOTAL | e | | | procedure are in the | | | | | | results section. | + +--------+ + + + | EXTERNAL LAB: | Routin | 05/29/2015 | | Results for this | | CHOLESTEROL, LDL | e | | | procedure are in the | | | | | | results section. | + +--------+ + + + | LIPID PANEL | Routin | 05/29/2015 | | Results for this | | | e | | | procedure are in the | | | | | | results section. | + +--------+ + + + documented in this encounter Results Lipid Panel (05/29/2015) + +---------+ + + + | Component | Value | Ref Range | Performed | Pathologist | | | | | At | Signature | + +---------+ + + + | VLDL | 49 (A) | 4 - 40 | | | | Cholesterol | | | | | | Jay | | | | | + +---------+ + + + | Chol/HDL | 7.3 (A) | 0.0 - 5.0 | | | | Ratio | | | | | + +---------+ + + + | Non HDL | 228 (A) | 0 - 130 | | | | Chol. | | | | | | (LDL+VLDL) | | | | | + +---------+ + + + + + | Specimen | + + | Blood specimen | | (specimen) | + + External Lab: Triglycerides (05/29/2015) + +---------+ + + + | Component | Value | Ref Range | Performed | Pathologist | | | | | At | Signature | + +---------+ + + + | Triglycerid | 244 (A) | 30 - 150 | EXTERNAL | | | es, | | | LAB | | | External | | | | | + +---------+ + + + + + | Specimen | + + | Blood specimen | | (specimen) | + + + + | Resulting Agency Comment | + + | [facility] | + + + +---------+ + + | Performing | Address | City/State/Zipcode | Phone Number | | Organization | | | | + +---------+ + + | EXTERNAL LAB | | | | + +---------+ + + External Lab: Cholesterol, HDL (05/29/2015) + + + + + + | Component | Value | Ref Range | Performed | Pathologist | | | | | At | Signature | + + + + + + | HDL | 36.1 (A) | 40 - 99,999 | EXTERNAL | | | Cholesterol | | mg/dl | LAB | | | , External | | | | | + + + + + + + + | Specimen | + + | Blood specimen | | (specimen) | + + + + | Resulting Agency Comment | + + | [facility] | + + + +---------+ + + | Performing | Address | City/State/Zipcode | Phone Number | | Organization | | | | + +---------+ + + | EXTERNAL LAB | | | | + +---------+ + + External Lab: Cholesterol, Total (05/29/2015) + +---------+ + + + | Component | Value | Ref Range | Performed | Pathologist | | | | | At | Signature | + +---------+ + + + | Cholesterol | 264 (A) | 0 - 200 mg/dl | EXTERNAL | | | , Total, | | | LAB | | | External | | | | | + +---------+ + + + + + | Specimen | + + | Blood specimen | | (specimen) | + + + + | Resulting Agency Comment | + + | [facility] | + + + +---------+ + + | Performing | Address | City/State/Zipcode | Phone Number | | Organization | | | | + +---------+ + + | EXTERNAL LAB | | | | + +---------+ + + External Lab: Cholesterol, LDL (05/29/2015) + +---------+ + + + | Component | Value | Ref Range | Performed | Pathologist | | | | | At | Signature | + +---------+ + + + | LDL | 179 (A) | 0 - 100 | EXTERNAL | | | Cholesterol | | | LAB | | | , Direct, | | | | | | External | | | | | + +---------+ + + + + + | Specimen | + + | Blood specimen | | (specimen) | + + + + | Resulting Agency Comment | + + | [facility] | + + + +---------+ + + | Performing | Address | City/State/Zipcode | Phone Number | | Organization | | | | + +---------+ + + | EXTERNAL LAB | | | | + +---------+ + + documented in this encounter Visit Diagnoses Not on filedocumented in this encounter"
--- OUTSIDE RECORDS SUMMARY | ~2019-10-28 | XMS | Encounter Summary ---
Demographics + + + | Address | [address] | | | [place] [address] | + + + | Home Phone | | + + + | Preferred Language | Unknown | + + + | Marital Status | Single | + + + | Alevism Affiliation | NON | + + + | Race | White | + + + | Ethnic Group | Not or | + + + Author + + + | Author | [facility] | + + + | Organization | [facility] | + + + | Address | Unknown | + + + | Phone | Unavailable | + + + Support + + +---------+---------+ | Name | Relationship | Address | Phone | + + +---------+---------+ | Anayeli Pennington | ECON | Unknown | nophone | + + +---------+---------+ Care Team Providers + +------+ + | Care Medical Or Surgical Instrument Maker Name | Role | Phone | + +------+ + PCP | Unavailable | + +------+ + Reason for Visit +---------+ + | Reason | Comments | +---------+ + | Post Op | right index finger problems | +---------+ + Encounter Details +--------+---------+ + + + | Date | Type | Department | Care Team | Description | +--------+---------+ + + + | 10/07/ | Office | Plastic and | Re, Pls Preop | Amputation Finger | | 2006 | Visit | Reconstructive | [address] | (Primary Dx) | | | | Surgery at [facility] [address] | [facility], | | | | | [address] | [place] [address] | | | | | Mailcode: CH5P | | | | | | [facility] | | | | | | [address] K[address], | | | | | | Building | | | | | | [place], [place] | | | | | | [address] | | | | | | [phone] | | | +--------+---------+ + + + Social History + +-------+ +--------+------+ | Tobacco Use | Types | Packs/Day | Years | Date | | | | | Used | | + +-------+ +--------+------+ | Never Smoker | | | | | + +-------+ +--------+------+ + + +---------+ + | Alcohol Use | Drinks/Week | oz/Week | Comments | + + +---------+ + | No | | | None | + + +---------+ + + + [...] + + documented as of this encounter Progress Notes Dave Cisneros - 11/02/2006 3:19 PM PDTI do not recall having seen this patient or being as ked by Dr. Shaw to see this patient 3:1 9 PM Luz Marina Sofia Md - 10/07/2006 4:03 PM PDTCC: Pt seen in clinic for infection of R in dex finger. HPI: S/p traumatic amputation to the tuft. Pt reports hitting tip of finger with a hammer one week ago. Since then the wound reopened, drained puss. Pt complains of pain, tendernes s and fowl smell over the finger tip. Has been soaking finger daily in epsome salts. Denie s SOB, fever, chills, nausea or vomiting. Has not taken any ABX. PE: Afebrile VSS L hand: other finger wounds well healed. Pinki finger with blackened skin graft well adhered to nail bed, no errythema or drainage. Index finger dressing intact. Pos fowl smell. Obvious drainage. Minimal errythema and sw elling. Pt soaked finger in NS for 10min. Scab removed. Wound swabbed and specimen sent fo r C&S. Piece of nail removed from wound. No visible bone showing. Sterile matrix visible. SILT. Cap refill <2sec. AP: Pt 5wk s/p traumatic partial amputation of L fingers. Presents with wound infection o f L index finger for one week after reinjury with a hammer. 1. Culture and sensitivity sent 2. Keflex for 7d started 3. Pt to f/u with Dr. Cisneros as needed 4. Pt is to go to ER in [place] if symptoms worsen. He was instructed on fever, chills, errythema, increased drainage from wound, etc. Luz Marina Shaw MD documented i n this encounter Plan of Treatment Not on filedocumented as of this encounter Procedures + +--------+ + + + | Procedure Name | Priori | Date/Time | Associated Diagnosis | Comments | | | ty | | | | + +--------+ + + + | CULTURE, WOUND BACTI | Routin | 10/07/2006 | Amputation Finger | Results for this | | & GS | e | 3:30 PM | | procedure are in the | | | | PDT | | results section. | + +--------+ + + + documented in this encounter Results CULT, WOUND BACTI & GS (10/07/2006 3:30 PM PDT) + + + + + + | Component | Value | Ref Range | Performed | Pathologist | | | | | At | Signature | + + + + + + | SOURCE BODY | Finger Abscess | | | | | SITE | | | | | + + + + + + | CULTURE | Wound Culture | | | | | RESULT | | | | | | | Source...............: | | | | | | Finger Abscess RLB Gram | | | | | | Stain...........: | | | | | | Moderate Squamous | | | | | | epithelial cells | | | | | | | | | | | | Few PMN's | | | | | | | | | | | | Moderate | | | | | | Gram positive cocci in | | | | | | clusters Culture: | | | | | | 2+ | | | | | | Staphylococcus aureus | | | | | | | | | | | | Final | | | | | | ID | | | | | | Staphylococcus aureus | | | | | | | | | | | | Prelim | | | | | | ID 1+ Skin darlene. | | | | | | | | | | | | | | | | | | Final ID | | | | | | | | | | | | S. aureus | | | | | | Cefazolin | | | | | | S Clindamycin | | | | | | S Erythromycin | | | | | | S Oxacillin | | | | | | S | | | | | | Penicillin | | | | | | R Trimeth/Sulfa | | | | | | S Vancomycin | | | | | | S Final | | | | | | ReportComment: Test | | | | | | performed at [place] | | | | | | [facility] | | | | | | Laboratory. | | | | + + + + + + + + | Specimen | + + | Abscess - Finger | + + + + + + + | Performing | Address | City/State/Zipcode | Phone Number | | Organization | | | | + + + + + | [facility] | [address] | [place] [address] | | | LAB-MICRO | | | | + + + + + documented in this encounter Visit Diagnoses + + | Diagnosis | + + | Traumatic amputation of other finger(s) (complete) (partial), without mention of | | complication - Primary | + + documented in this encounter"
--- OUTSIDE RECORDS SUMMARY | ~2019-10-28 | XMS | Encounter Summary ---
Demographics + + + | Address | [address] | | | [place] [address] | + + + | Home Phone | | + + + | Preferred Language | Unknown | + + + | Marital Status | Legally | + + + | Confucianism Affiliation | 1013 | + + + | Race | Unknown | + + + | Ethnic Group | Unknown | + + + Author + + + | Author | [facility] | | | and [place] | + + + | Organization | [facility] | | | and [...] | | | | | [place] [address] | | + + + + + Care Team Providers + +------+ + | Care Space Engineer Name | Role | Phone | + +------+ + PCP | Unavailable | + +------+ + Encounter Details +--------+ + + + + | Date | Type | Department | Care Team | Description | +--------+ + + + + | 12/19/ | Hospital | [facility] | | | | 2002 | Encounter | MED CTR XRAY [address] | | | | | | [place] | | | | | | [place] [address] | | | | | | [phone] | | | +--------+ + + + [...] Not on filedocumented as of this encounter Visit Diagnoses Not on filedocumented in this encounter"
--- OUTSIDE RECORDS SUMMARY | ~2019-10-28 | XMS | Encounter Summary ---
Demographics + + + | Address | [address] | | | [place] [address] | + + + | Home Phone | | + + + | Preferred Language | Unknown | + + + | Marital Status | Legally | + + + | Yarsanism Affiliation | 1013 | + + + | Race | Unknown | + + + | Ethnic Group | Unknown | + + + Author + + + | Author | [facility] | | | and [place] | + + + | Organization | [facility] | | | and [place] | + + + | Address | Unknown | + + + | Phone | Unavailable | + + + Support + + + + + | Name | Relationship | Address | Phone | + + + + + | Nikia Borges | ECON | [address] | | | | | [place] [address] | | + + + + + Care Team Providers + +------+ + | Care Activated Sludge Attendant Name | Role | Phone | + +------+ + | Nikolas Luis MD | PCP | | + +------+ + Reason for Visit + + + | Reason | Comments | + + + | Lab Order | due for fasting labs prior to appt | + + + Encounter Details +--------+ + + + + | Date | Type | Department | Care Team | Description | +--------+ + + + + | 08/11/ | Telephone | [facility] | Ben, | Lab Order (due for | | 2016 | | CARDIOLOGY [address] | [address] | fasting labs prior | | | | [place], | [place], | to appt) | | | | [place] [address] | [place] [address] | | | | | [phone] | [phone] | | | | | | | [...]
--- OUTSIDE RECORDS SUMMARY | ~2019-10-28 | XMS | Clinical Summary ---
Demographics + + + | Address | [address] | | | [place] [address] | + + + | Home Phone | | + + + | Preferred Language | Unknown | + + + | Marital Status | Single | + + + | Episcopal Affiliation | NON | + + + | Race | White | + + + | Ethnic Group | Not or | + + + Author + + + | Author | NON REVENUE LOCATIONS | + + + | Organization | NON REVENUE LOCATIONS | + + + | Address | Unknown | + + + | Phone | Unavailable | + + + Support + + +---------+---------+ | Name | Relationship | Address | Phone | + + +---------+---------+ | Anayeli Pennington | ECON | Unknown | nophone | + + +---------+---------+ Care Team Providers + +------+ + | Care Field Sales Manager Name | Role | Phone | + +------+ + | Unknown | PCP | Unavailable | + +------+ + Source Comments REKHA is fully live on both [facility] Ambulatory and [facility] InPatient.[facility] Allergies No Known Allergies Medications + + + +---------+------+------+-------+ | Medication | Sig | Dispensed | Refills | Star | End | Statu | | | | | | t | Date | s | | | | | | Date | | | + + + +---------+------+------+-------+ | KEFLEX 500 MG | Take 1 capsule | 28 | 0 | 04/1 | | Activ | | CAPIndications: | (500mg) by oral | | | 3/20 | | e | | Traumatic amputation | route every 6 hours | | | 07 | | | | of other finger(s) | | | | | | | | (complete) | | | | | | | | (partial), without | | | | | | | | mention of | | | | | | | | complication | | | | | | | + + + +---------+------+------+-------+ Active Problems + + + | Problem | Noted Date | + + + | Traumatic amputation of other finger(s) (complete) (partial), | 08/25/2006 | | without mention of complication | | + + + | Finger laceration | 08/25/2006 | + + + | Status post skin graft | 08/25/2006 | + + + + + | Overview: ICD10 | + + Social History + +-------+ +--------+------+ [...] recent travel history available. | + + Last Filed Vital Signs + + + + + | Vital Sign | Reading | Time Taken | Comments | + + + + + | Blood Pressure | 133/80 | 08/25/2006 10:51 AM | | | | | PST | | + + + + + | Pulse | 68 | 08/25/2006 10:51 AM | | | | | PST | | + + + + + | Temperature | - | - | | + + + + + | Respiratory Rate | - | - | | + + + + + | Oxygen Saturation | 97% | 08/25/2006 10:51 AM | | | | | PST | | + + + + + | Inhaled Oxygen | - | - | | | Concentration | | | | + + + + + | Weight | 99.7 kg (219 lb 14.4 | 08/25/2006 10:51 AM | | | | oz) | PST | | + + + + + | Height | 185.4 cm (6' 1") | 08/25/2006 10:51 AM | | | | | PST | | + + + + + | Body Mass Index | 29.01 | 08/25/2006 10:51 AM | | | | | PST | | + + + + + Plan of Treatment + + + + + | Health Maintenance | Due Date | Last Done | Comments | + + + + + | Influenza (Flu) | | 06/10/2017 | | | vaccination (#1) | 9 | | | + + + + + | Pneumococcal | Aged Out | | No longer eligible | | vaccination | | | based on patient's | | | | | age to complete this | | | | | topic | + + + + + Results Not on filefrom Last 3 Months Insurance + +--------+ +--------+-------+---------+--------+ | Payer | Benefi | Subscriber | Effect | Phone | Address | Type | | | t Plan | ID | zee | | | | | | / | | Dates | | | | | | Group | | | | | | + +--------+ +--------+-------+---------+--------+ | CHILDCARE ADMINISTRATOR MEDICAID | CHILDCARE ADMINISTRATOR | xxxxxxxx | | | | Medica | | | [place] | | 019-[id number] | | | id | | | [place] | | esent | | | | + +--------+ +--------+-------+---------+--------+ + +--------+ +--------+ + + | Guarantor Name | Accoun | Relation to | Date | Phone | Billing Address | | | t Type | Patient | of | | | | | | | | | | + +--------+ +--------+ + + | Sukumar Pennington | Person | Self | [birth year] | | [place], | | | al/Isaac | | 1966 | [phone] | [place] [address] | | | adam | | | 7 (Home) | | + +--------+ +--------+ + +
--- OUTSIDE RECORDS SUMMARY | ~2019-10-28 | XMS | Encounter Summary ---
Demographics + + + | Address | [address] | | | [place] [address] | + + + | Home Phone | | + + + | Preferred Language | Unknown | + + + | Marital Status | Legally | + + + | Alevism Affiliation | 1013 | + + + | Race | Unknown | + + + | Ethnic Group | Unknown | + + + Author + + + | Author | [facility] | | | and [place] | + + + | Organization | [facility] | | | and [place] [...] | | | | | [place] [address] | | + + + + + Care Team Providers + +------+ + | Care Vp Analytics Name | Role | Phone | + +------+ + | Nikolas Luis MD | PCP | | + +------+ + Encounter Details +--------+ + + + + | Date | Type | Department | Care Team | Description | +--------+ + + + + | 08/16/ | Abstract | [facility] | Ben, | | | 2016 | | CARDIOLOGY [address] | [address] | | | | | [place], | [place], | | | | | [place] [address] | [place] [address] | | | | | [phone] | [phone] | | | | | | | [...] | EXTERNAL LAB: BUN | Routin | 08/13/2016 | | Results for this | | | e | 4:12 PM | | procedure are in the | | | | PST | | results section. | + +--------+ + + + | EXTERNAL LAB: | Routin | 08/13/2016 | | Results for this | | GLUCOSE | e | 4:12 PM | | procedure are in the | | | | PST | | results section. | + +--------+ + + + | EXTERNAL LAB: ALT | Routin | 08/13/2016 | | Results for this | | | e | 4:12 PM | | procedure are in the | | | | PST | | results section. | + +--------+ + + + | EXTERNAL LAB: AST | Routin | 08/13/2016 | | Results for this | | | e | 4:12 PM | | procedure are in the | | | | PST | | results section. | + +--------+ + + + | EXTERNAL LAB: | Routin | 08/13/2016 | | Results for this | | ALKALINE PHOSPHATASE | e | 4:12 PM | | procedure are in the | | | | PST | | results section. | + +--------+ + + + | EXTERNAL LAB: | Routin | 08/13/2016 | | Results for this | | BILIRUBIN, TOTAL | e | 4:12 PM | | procedure are in the | | | | PST | | results section. | + +--------+ + + + | EXTERNAL LAB: | Routin | 08/13/2016 | | Results for this | | ALBUMIN | e | 4:12 PM | | procedure are in the | | | | PST | | results section. | + +--------+ + + + | EXTERNAL LAB: | Routin | 08/13/2016 | | Results for this | | PROTEIN, TOTAL | e | 4:12 PM | | procedure are in the | | | | PST | | results section. | + +--------+ + + + | EXTERNAL LAB: | Routin | 08/13/2016 | | Results for this | | CALCIUM | e | 4:12 PM | | procedure are in the | | | | PST | | results section. | + +--------+ + + + | EXTERNAL LAB: CARBON | Routin | 08/13/2016 | | Results for this | | DIOXIDE | e | 4:12 PM | | procedure are in the | | | | PST | | results section. | + +--------+ + + + | EXTERNAL LAB: | Routin | 08/13/2016 | | Results for this | | CHLORIDE | e | 4:12 PM | | procedure are in the | | | | PST | | results section. | + +--------+ + + + | EXTERNAL LAB: | Routin | 08/13/2016 | | Results for this | | POTASSIUM | e | 4:12 PM | | procedure are in the | | | | PST | | results section. | + +--------+ + + + | EXTERNAL LAB: SODIUM | Routin | 08/13/2016 | | Results for this | | | e | 4:12 PM | | procedure are in the | | | | PST | | results section. | + +--------+ + + + | EXTERNAL LAB: | Routin | 08/13/2016 | | Results for this | | TRIGLYCERIDES | e | 4:12 PM | | procedure are in the | | | | PST | | results section. | + +--------+ + + + | EXTERNAL LAB: | Routin | 08/13/2016 | | Results for this | | CHOLESTEROL, HDL | e | 4:12 PM | | procedure are in the | | | | PST | | results section. | + +--------+ + + + | EXTERNAL LAB: | Routin | 08/13/2016 | | Results for this | | CHOLESTEROL, TOTAL | e | 4:12 PM | | procedure are in the | | | | PST | | results section. | + +--------+ + + + | EXTERNAL LAB: | Routin | 08/13/2016 | | Results for this | | CHOLESTEROL, LDL | e | 4:12 PM | | procedure are in the | | | | PST | | results section. | + +--------+ + + + | EXTERNAL LAB: EGFR | Routin | 08/13/2016 | | Results for this | | | e | 4:12 PM | | procedure are in the | | | | PST | | results section. | + +--------+ + + + | EXTERNAL LAB: | Routin | 08/13/2016 | | Results for this | | CREATININE | e | 4:12 PM | | procedure are in the | | | | PST | | results section. | + +--------+ + + + | LIPID PANEL | Routin | 08/13/2016 | | Results for this | | | e | 9:27 AM | | procedure are in the | | | | PST | | results section. | + +--------+ + + + | COMPREHENSIVE | Routin | 08/13/2016 | | Results for this | | METABOLIC PANEL | e | 9:27 AM | | procedure are in the | | | | PST | | results section. | + +--------+ + + + documented in this encounter Results External Lab: DIANE (08/13/2016 4:12 PM PST) + +-------+ + + + | Component | Value | Ref Range | Performed | Pathologist | | | | | At | Signature | + +-------+ + + + | BUN, | 19 | 6 - 23 | EXTERNAL | | | External | | | LAB | | + +-------+ + + + + + | Resulting Agency Comment | + + | [facility] | + + + +---------+ + + | Performing | Address | City/State/Zipcode | Phone Number | | Organization | | | | + +---------+ + + | EXTERNAL LAB | | | | + +---------+ + + External Lab: Glucose (08/13/2016 4:12 PM PST) + +-------+ + + + | Component | Value | Ref Range | Performed | Pathologist | | | | | At | Signature | + +-------+ + + + | Glucose, | 96 | 70 - 100 | EXTERNAL | | | External | | | LAB | | + +-------+ + + + + + | Resulting Agency Comment | + + | [facility] | + + + +---------+ + + | Performing | Address | City/State/Zipcode | Phone Number | | Organization | | | | + +---------+ + + | EXTERNAL LAB | | | | + +---------+ + + External Lab: ALT (08/13/2016 4:12 PM PST) + +-------+ + + + | Component | Value | Ref Range | Performed | Pathologist | | | | | At | Signature | + +-------+ + + + | ALT, | 14 | 7 - 52 | EXTERNAL | | | External | | | LAB | | + +-------+ + + + + + | Resulting Agency Comment | + + | [facility] | + + + +---------+ + + | Performing | Address | City/State/Zipcode | Phone Number | | Organization | | | | + +---------+ + + | EXTERNAL LAB | | | | + +---------+ + + External Lab: AST (08/13/2016 4:12 PM PST) + +-------+ + + + | Component | Value | Ref Range | Performed | Pathologist | | | | | At | Signature | + +-------+ + + + | AST, | 19 | 13 - 39 | EXTERNAL | | | External | | | LAB | | + +-------+ + + + + + | Resulting Agency Comment | + + | [facility] | + + + +---------+ + + | Performing | Address | City/State/Zipcode | Phone Number | | Organization | | | | + +---------+ + + | EXTERNAL LAB | | | | + +---------+ + + External Lab: Alkaline Phosphatase (08/13/2016 4:12 PM PST) + +-------+ + + + | Component | Value | Ref Range | Performed | Pathologist | | | | | At | Signature | + +-------+ + + + | ALP, | 52 | 31 - 120 | EXTERNAL | | | External | | | LAB | | + +-------+ + + + + + | Resulting Agency Comment | + + | [facility] | + + + +---------+ + + | Performing | Address | City/State/Zipcode | Phone Number | | Organization | | | | + +---------+ + + | EXTERNAL LAB | | | | + +---------+ + + External Lab: Bilirubin, Total (08/13/2016 4:12 PM PST) + +-------+ + + + | Component | Value | Ref Range | Performed | Pathologist | | | | | At | Signature | + +-------+ + + + | Bilirubin, | 0.7 | 0 - 1.2 | EXTERNAL | | | Total, | | | LAB | | | External | | | | | + +-------+ + + + + + | Resulting Agency Comment | + + | [facility] | + + + +---------+ + + | Performing | Address | City/State/Zipcode | Phone Number | | Organization | | | | + +---------+ + + | EXTERNAL LAB | | | | + +---------+ + + External Lab: Albumin (08/13/2016 4:12 PM PST) + +-------+ + + + | Component | Value | Ref Range | Performed | Pathologist | | | | | At | Signature | + +-------+ + + + | Albumin, | 4.4 | 3.5 - 5 | EXTERNAL | | | External | | | LAB | | + +-------+ + + + + + | Resulting Agency Comment | + + | [facility] | + + + +---------+ + + | Performing | Address | City/State/Zipcode | Phone Number | | Organization | | | | + +---------+ + + | EXTERNAL LAB | | | | + +---------+ + + External Lab: Protein, Total (08/13/2016 4:12 PM PST) + +-------+ + + + | Component | Value | Ref Range | Performed | Pathologist | | | | | At | Signature | + +-------+ + + + | Protein, | 6.5 | 6 - 8 | EXTERNAL | | | Total, | | | LAB | | | External | | | | | + +-------+ + + + + + | Resulting Agency Comment | + + | [facility] | + + + +---------+ + + | Performing | Address | City/State/Zipcode | Phone Number | | Organization | | | | + +---------+ + + | EXTERNAL LAB | | | | + +---------+ + + External Lab: Calcium (08/13/2016 4:12 PM PST) + +-------+ + + + | Component | Value | Ref Range | Performed | Pathologist | | | | | At | Signature | + +-------+ + + + | Calcium, | 9.5 | 8.4 - 10.2 | EXTERNAL | | | External | | | LAB | | + +-------+ + + + + + | Resulting Agency Comment | + + | [facility] | + + + +---------+ + + | Performing | Address | City/State/Zipcode | Phone Number | | Organization | | | | + +---------+ + + | EXTERNAL LAB | | | | + +---------+ + + External Lab: Carbon Dioxide (08/13/2016 4:12 PM PST) + +-------+ + + + | Component | Value | Ref Range | Performed | Pathologist | | | | | At | Signature | + +-------+ + + + | Carbon | 27 | 19 - 31 | EXTERNAL | | | Dioxide, | | | LAB | | | External | | | | | + +-------+ + + + + + | Resulting Agency Comment | + + | [facility] | + + + +---------+ + + | Performing | Address | City/State/Zipcode | Phone Number | | Organization | | | | + +---------+ + + | EXTERNAL LAB | | | | + +---------+ + + External Lab: Chloride (08/13/2016 4:12 PM PST) + +-------+ + + + | Component | Value | Ref Range | Performed | Pathologist | | | | | At | Signature | + +-------+ + + + | Chloride, | 105 | 95 - 112 | EXTERNAL | | | External | | | LAB | | + +-------+ + + + + + | Resulting Agency Comment | + + | [facility] | + + + +---------+ + + | Performing | Address | City/State/Zipcode | Phone Number | | Organization | | | | + +---------+ + + | EXTERNAL LAB | | | | + +---------+ + + External Lab: Potassium (08/13/2016 4:12 PM PST) + +-------+ + + + | Component | Value | Ref Range | Performed | Pathologist | | | | | At | Signature | + +-------+ + + + | Potassium, | 4.7 | 3.6 - 5.1 | EXTERNAL | | | External | | | LAB | | + +-------+ + + + + + | Resulting Agency Comment | + + | [facility] | + + + +---------+ + + | Performing | Address | City/State/Zipcode | Phone Number | | Organization | | | | + +---------+ + + | EXTERNAL LAB | | | | + +---------+ + + External Lab: Sodium (08/13/2016 4:12 PM PST) + +-------+ + + + | Component | Value | Ref Range | Performed | Pathologist | | | | | At | Signature | + +-------+ + + + | Sodium, | 141 | 132 - 143 | EXTERNAL | | | External | | | LAB | | + +-------+ + + + + + | Resulting Agency Comment | + + | [facility] | + + + +---------+ + + | Performing | Address | City/State/Zipcode | Phone Number | | Organization | | | | + +---------+ + + | EXTERNAL LAB | | | | + +---------+ + + External Lab: Triglycerides (08/13/2016 4:12 PM PST) + +-------+ + + + | Component | Value | Ref Range | Performed | Pathologist | | | | | At | Signature | + +-------+ + + + | Triglycerid | 108 | 30 - 150 | EXTERNAL | | | es, | | | LAB | | | External | | | | | + +-------+ + + + + + | Specimen | + + | Blood specimen | | (specimen) | + + + + | Resulting Agency Comment | + + | [facility] | + + + +---------+ + + | Performing | Address | City/State/Zipcode | Phone Number | | Organization | | | | + +---------+ + + | EXTERNAL LAB | | | | + +---------+ + + External Lab: Cholesterol, HDL (08/13/2016 4:12 PM PST) + +-------+ + + + | Component | Value | Ref Range | Performed | Pathologist | | | | | At | Signature | + +-------+ + + + | HDL | 46.5 | 40 mg/dl | EXTERNAL | | | Cholesterol | | | LAB | | | , External | | | | | + +-------+ + + + + + | Specimen | + + | Blood specimen | | (specimen) | + + + + | Resulting Agency Comment | + + | [facility] | + + + +---------+ + + | Performing | Address | City/State/Zipcode | Phone Number | | Organization | | | | + +---------+ + + | EXTERNAL LAB | | | | + +---------+ + + External Lab: Cholesterol, Total (08/13/2016 4:12 PM PST) + +---------+ + + + | Component | Value | Ref Range | Performed | Pathologist | | | | | At | Signature | + +---------+ + + + | Cholesterol | 244 (A) | 200 mg/dl | EXTERNAL | | | , Total, | | | LAB | | | External | | | | | + +---------+ + + + + + | Specimen | + + | Blood specimen | | (specimen) | + + + + | Resulting Agency Comment | + + | [facility] | + + + +---------+ + + | Performing | Address | City/State/Zipcode | Phone Number | | Organization | | | | + +---------+ + + | EXTERNAL LAB | | | | + +---------+ + + External Lab: Cholesterol, LDL (08/13/2016 4:12 PM PST) + +---------+ + + + | Component | Value | Ref Range | Performed | Pathologist | | | | | At | Signature | + +---------+ + + + | LDL | 176 (A) | 100 | EXTERNAL | | | Cholesterol | | | LAB | | | , Direct, | | | | | | External | | | | | + +---------+ + + + + + | Specimen | + + | Blood specimen | | (specimen) | + + + + | Resulting Agency Comment | + + | [facility] | + + + +---------+ + + | Performing | Address | City/State/Zipcode | Phone Number | | Organization | | | | + +---------+ + + | EXTERNAL LAB | | | | + +---------+ + + External Lab: eGFR (08/13/2016 4:12 PM PST) + +-------+ + + + | Component | Value | Ref Range | Performed | Pathologist | | | | | At | Signature | + +-------+ + + + | eGFR, | 63 | 60 - 999 | EXTERNAL | | | External | | | LAB | | + +-------+ + + + + + | Specimen | + + | Blood specimen | | (specimen) | + + + + | Resulting Agency Comment | + + | [facility] | + + + +---------+ + + | Performing | Address | City/State/Zipcode | Phone Number | | Organization | | | | + +---------+ + + | EXTERNAL LAB | | | | + +---------+ + + External Lab: Creatinine (08/13/2016 4:12 PM PST) + +-------+ + + + | Component | Value | Ref Range | Performed | Pathologist | | | | | At | Signature | + +-------+ + + + | Creatinine, | 1.22 | 0.7 - 1.33 | EXTERNAL | | | External | | | LAB | | + +-------+ + + + + + | Specimen | + + | Blood specimen | | (specimen) | + + + + | Resulting Agency Comment | + + | [facility] | + + + +---------+ + + | Performing | Address | City/State/Zipcode | Phone Number | | Organization | | | | + +---------+ + + | EXTERNAL LAB | | | | + +---------+ + + Comprehensive Metabolic Panel (08/13/2016 9:27 AM PST) + +-------+ + + + | Component | Value | Ref Range | Performed | Pathologist | | | | | At | Signature | + +-------+ + + + | Anion Gap | 14 | 7 - 21 mmol/L | | | + +-------+ + + + | BUN/Creatin | 15.6 | 6.0 - 28.6 | | | | ine Ratio | | | | | + +-------+ + + + | Globulin | 2.1 | 1.8 - 3.5 g/dl | | | + +-------+ + + + | Albumin/Wen | 2.1 | 1.1 - 2.4 | | | | bulin Ratio | | | | | + +-------+ + + + + + | Specimen | + + | Blood specimen | | (specimen) | + + Lipid Panel (08/13/2016 9:27 AM PST) + +---------+ + + + | Component | Value | Ref Range | Performed | Pathologist | | | | | At | Signature | + +---------+ + + + | VLDL | 22 | 4 - 40 mg/dL | | | | Cholesterol | | | | | | Jay | | | | | + +---------+ + + + | Chol/HDL | 5.2 (A) | 5.0 | | | | Ratio | | | | | + +---------+ + + + | Non-HDL | 198 (A) | 130 mg/dL | | | | Cholesterol | | | | | + +---------+ + + + + + | Specimen | + + | Blood specimen | | (specimen) | + + documented in this encounter Visit Diagnoses Not on filedocumented in this encounter"
--- OUTSIDE RECORDS SUMMARY | ~2019-10-28 | XMS | Encounter Summary ---
Demographics + + + | Address | [address] | | | [place] [address] | + + + | Home Phone | | + + + | Preferred Language | Unknown | + + + | Marital Status | Single | + + + | Tenriism Affiliation | NON | + + + | Race | White | + + + | Ethnic Group | Not or | + + + Author + + + | Author | [facility] | + + + | Organization | [facility] | + + + | Address | Unknown | + + + | Phone | Unavailable | + + + Support + + +---------+---------+ | Name | Relationship | Address | Phone | + + +---------+---------+ | Anayeli Pennington | ECON | Unknown | nophone | + + +---------+---------+ Care Team Providers + +------+ + | Care Square Cutter Name | Role | Phone | + +------+ + PCP | Unavailable | + +------+ + Reason for Visit +---------+ + | Reason | Comments | +---------+ + | Post Op | rsf ftsg, rrf & rif revision amp | +---------+ + Encounter Details +--------+---------+ + + + | Date | Type | Department | Care Team | Description | +--------+---------+ + + + | 08/25/ | Office | Plastic and | Bianka Clemons, | Amputation Finger; | | 2006 | Visit | Reconstructive | [facility] [address] | Finger Laceration; | | | | Surgery at [facility] [address] | Skin Graft | | | | [address] | [place], [place] | | | | | Mailcode: [facility] | [address] | | | | | [facility] | [phone] | | | | | and Healing, | | | | | | Building | | | | | | Floor [place], [place] | | | | | | [address] | | | | | | [phone] | | | +--------+---------+ + + + [...] + documented in this encounter Progress Notes Bianka Clemons F - 08/25/2006 12:40 PM PSTFormatting of this note might be different from t he original. Op:08/20/06 Subjective: Sukumar Aditi presents 5 days status post R hand saw injury: 1. Closure of right small fingertip wound with full-thickness skin graft from right groin (1.5 sq cm). 2. Revision amputation of right ring fingertip. 3. Revision amputation of right index fingertip. 4. Repair of volar right thumb laceration (4 cm). with Dave Cisneros MD. Pt is doing remarkably well. He is no longer taking narcotic pain medications. Originally discontinued d/t constipation, but now controling pain with OTC meds prn. He has been doin g daily dressing changes to index finger and thumb. Has not yet removed dressings from ring finger or small finger. Pt denies: fever, chills, nausea, vomiting. No past medical history on file. Past Surgical History Procedure Date Pr pelvis/hip joint surgery unlisted 1999 R hand saw injury, amputations 2006 No Known Allergies. 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 Review of Systems: A complete and full review of systems is otherwise non-contributory. Objective: Gen: NAD BP 133/80 | Pulse 68 | Ht 1.854 m (6' 1") | Wt 99.746 kg (219 lbs 14.4 oz) | SpO2 97% R hand: All incisions c/d/i. Bolster removed from small finger. Skin graft covering nailb ed on small finger pink along radial aspect, whitish along ulnar aspect. No darkened or andrae ckened elmer necrosis. Donor site c/d/i. Assessment: 5 days s/p R hand injury Plan: - continue daily dressing changes to all fingers, supplies of xeroform, gauze given to damian ent - RTC in 10-14 days for suture removal Pt will follow up in 3 weeks with Dave Cisneros MD, ti sagastume. 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
--- OUTSIDE RECORDS SUMMARY | ~2019-10-28 | XMS | Encounter Summary ---
Demographics + + + | Address | [address] | | | [place] [address] | + + + | Home Phone | | + + + | Preferred Language | Unknown | + + + | Marital Status | Legally | + + + | Orthodoxy Affiliation | 1013 | + + + | Race | Unknown | + + + | Ethnic Group | Unknown | + + + Author + + + | Author | [facility] | | | and [place] | + + + | Organization | [facility] | | | and [...] | | | | | [place] [address] | | + + + + + Care Team Providers + +------+ + | Care Dental Secretary Name | Role | Phone | + +------+ + | Boy Moran MD | PCP | | + +------+ + Encounter Details +--------+ + + + + | Date | Type | Department | Care Team | Description | +--------+ + + + + | 05/11/ | Imaging | [facility] | Provider, | | | 2019 | Exam | [facility] | MD [address] | | | | | IMAGING [address] | [address] | | | | | [place] | [place] [address] | | | | | [place] [address] | | | | | | [phone] | | | +--------+ + + + [...] | + +--------+ + + + | XR HIP RIGHT 2-3 | Routin | 05/07/2019 | | Results for this | | VIEWS | e | 12:00 AM | | procedure are in the | | | | PST | | results section. | + +--------+ + + + documented in this encounter Results XR Hip Right 2-3 Views (05/07/2019 12:00 AM PST) + + | Specimen | + + | | + + + + + | Narrative | Performed At | + + + | External films for comparison only | [facility] | | | | | No results will be in the chart. | | + + + + +---------+ + + | Performing | Address | City/State/Zipcode | Phone Number | | Organization | | | | + +---------+ + + | [facility] | | | | + +---------+ + + documented in this encounter Visit Diagnoses Not on filedocumented in this encounter"
--- OUTSIDE RECORDS SUMMARY | ~2019-10-28 | XMS | Encounter Summary ---
Demographics + + + | Address | [address] | | | [place] [address] | + + + | Home Phone | | + + + | Preferred Language | Unknown | + + + | Marital Status | Legally | + + + | Yazdanism Affiliation | 1013 | + + + | Race | Unknown | + + + | Ethnic Group | Unknown | + + + Author + + + | Author | [facility] | | | and [place] | + + + | Organization | [facility] | | | and [place] | + + + | Address | Unknown | + + + | Phone | Unavailable | + + + Support + + + + + | Name | Relationship | Address | Phone | + + + + + | Nikia Borges | ECON | [address] | | | | | [place] [address] | | + + + + + Care Team Providers + +------+ + | Care Ocean Fishing Guide Name | Role | Phone | + +------+ + | Nikolas Luis MD | PCP | | + +------+ + Reason for Visit + + + | Reason | Comments | + + + | Chest Pain | | + + + Encounter Details +--------+ + + + + | Date | Type | Department | Care Team | Description | +--------+ + + + + | 05/24/ | Emergency | [facility] | Mike Hernandezic [place], | Palpitations | | 2015 | | [facility] | MD [address] | (Primary Dx) | | | | CENTER [address] | [facility] [place] | | | | | [place], [place] | [place] [address] | | | | | [address] | [phone] | | | | | [phone] | | | +--------+ + + + [...] +---------+ + | No | | | | + + +---------+ + [...] + + + | Blood Pressure | 125/80 | 05/24/2015 7:45 PM | | | | | PST | | + + + + + | Pulse | 56 | 05/24/2015 7:45 PM | | | | | PST | | + + + + + | Temperature | 36.3 C (97.4 F) | 05/24/2015 6:07 PM | | | | | PST | | + + + + + | Respiratory Rate | 11 | 05/24/2015 7:45 PM | | | | | PST | | + + + + + | Oxygen Saturation | 97% | 05/24/2015 7:45 PM | | | | | PST | | + + + + + | Inhaled Oxygen | - | - | | | Concentration | | | | + + + + + | Weight | 97.5 kg (215 lb) | 05/24/2015 6:07 PM | | | | | PST | | + + + + + | Height | 185.4 cm (6' 0.99") | 05/24/2015 6:07 PM | | | | | PST | | + + + + + | Body Mass Index | 28.37 | 05/24/2015 6:07 PM | | | | | PST | | + + + + + documented in this encounter Discharge Instructions Instructions Sukumar Hernandez MD - 05/24/2015Holter monitor for 48 hours Follow-up with cardiology Return immediately if your symptoms worsen AttachmentsThe following attachments cannot be sent through Care Everywhere.PALPITATIONS (E NGLISH)HOLTER MONITOR (KHMER)documented in this encounter Plan of Treatment Not on filedocumented as of this encounter Procedures + +--------+ + + + | Procedure Name | Priori | Date/Time | Associated Diagnosis | Comments | | | ty | | | | + +--------+ + + + | XR CHEST AP PORTABLE | STAT | 05/24/2015 | | Results for this | | | | 7:11 PM | | procedure are in the | | | | PST | | results section. | + +--------+ + + + | EXTRA GOLD TOP TUBE | Routin | 05/24/2015 | | Results for this | | | e | 6:13 PM | | procedure are in the | | | | PST | | results section. | + +--------+ + + + | EXTRA BLUE TOP TUBE | Routin | 05/24/2015 | | Results for this | | | e | 6:13 PM | | procedure are in the | | | | PST | | results section. | + +--------+ + + + | TROPONIN I | STAT | 05/24/2015 | | Results for this | | | | 6:11 PM | | procedure are in the | | | | PST | | results section. | + +--------+ + + + | CBC WITH | STAT | 05/24/2015 | | Results for this | | DIFFERENTIAL | | 6:11 PM | | procedure are in the | | | | PST | | results section. | + +--------+ + + + | TSH | STAT | 05/24/2015 | | Results for this | | | | 6:11 PM | | procedure are in the | | | | PST | | results section. | + +--------+ + + + | MAGNESIUM | STAT | 05/24/2015 | | Results for this | | | | 6:11 PM | | procedure are in the | | | | PST | | results section. | + +--------+ + + + | COMPREHENSIVE | STAT | 05/24/2015 | | Results for this | | METABOLIC PANEL | | 6:11 PM | | procedure are in the | | | | PST | | results section. | + +--------+ + + + | ECG 12 LEAD | STAT | 05/24/2015 | | Results for this | | | | 5:59 PM | | procedure are in the | | | | PST | | results section. | + +--------+ + + + documented in this encounter Results XR Chest AP Portable (05/24/2015 7:11 PM PST) + + | Specimen | + + | | + + + + + | Narrative | Performed At | + + + | EXAM: XR CHEST AP PORTABLE dated 05/24/2015 6:37 PM HISTORY: | [facility] | | CHEST PAIN Comparison: None. TECHNIQUE: A single portable view | | | of the chest. FINDINGS: The lungs are symmetrically aerated. | | | They are clear. There are no large pleural effusions. There is | | | no pneumothorax. The cardiac and mediastinal contours are not | | | enlarged. The visible osseous structures are unremarkable. | | | IMPRESSION - No acute disease. Dictated and Signed by: Ki Sigala | Isaias Coronado MD Electronically signed: 05/25/2015 1:08 PM | | + + + + + | Procedure Note | + + | Lm Brito Results In - 05/25/2015 1:11 PM PST EXAM: XR CHEST AP PORTABLE dated | | 05/24/2015 6:37 PMHISTORY: CHEST PAINComparison: None.TECHNIQUE: A single portable view | | of the chest.FINDINGS:The lungs are symmetrically aerated. They are clear. There are | | no largepleural effusions. There is no pneumothorax. The cardiac and | | mediastinalcontours are not enlarged. The visible osseous structures are unremarkable. | | IMPRESSION -No acute disease. Dictated and Signed by: Ki Coronado MD | | Electronically signed: 05/25/2015 1:08 PM | | | |FINDINGS: | |The lungs are symmetrically aerated. They are clear. There are no large | |pleural effusions. There is no pneumothorax. The cardiac and mediastinal | |contours are not enlarged. The visible osseous structures are unremarkable. | | | |IMPRESSION - | | | |No acute disease. | | | |Dictated and Signed by: Ki Coronado MD | | Electronically signed: 05/25/2015 1:08 PM | + + + +---------+ + + | Performing | Address | City/State/Zipcode | Phone Number | | Organization | | | | + +---------+ + + | [facility] | | | | + +---------+ + + Extra Gold Top Tube (05/24/2015 6:13 PM PST) + +-------+ + + + | Component | Value | Ref Range | Performed | Pathologist | | | | | At | Signature | + +-------+ + + + | Extra Gold | Done | | [facility] | | | Top Tube | | | [facility] | | | | | | MEDICAL | | | | | | CENTER - | | | | | | LABORATORY | | + +-------+ + + + + + | Specimen | + + | Blood | + + + + + + + | Performing | Address | City/State/Zipcode | Phone Number | | Organization | | | | + + + + + | [facility] | [address] | [place] | [phone] | | [facility] | | [address] | | | - LABORATORY | | | | + + + + + Extra Blue Top Tube (05/24/2015 6:13 PM PST) + +-------+ + + + | Component | Value | Ref Range | Performed | Pathologist | | | | | At | Signature | + +-------+ + + + | Extra Blue | Done | | [facility] | | | Top Tube | | | [facility] | | | | | | MEDICAL | | | | | | CENTER - | | | | | | LABORATORY | | + +-------+ + + + + + | Specimen | + + | Blood | + + + + + + + | Performing | Address | City/State/Zipcode | Phone Number | | Organization | | | | + + + + + | [facility] | [address] | [place] | [phone] | | [facility] | | [address] | | | - LABORATORY | | | | + + + + + Magnesium (05/24/2015 6:11 PM PST) + +-------+ + + + | Component | Value | Ref Range | Performed | Pathologist | | | | | At | Signature | + +-------+ + + + | Magnesium | 2.2 | 1.8 - 2.5 mg/dL | [facility] | | | | | | [facility] | | | | | | MEDICAL | | | | | | CENTER - | | | | | | LABORATORY | | + +-------+ + + + + + | Specimen | + + | Blood | + + + + + + + | Performing | Address | City/State/Zipcode | Phone Number | | Organization | | | | + + + + + | [facility] | [address] | [place] | [phone] | | [facility] | | [address] | | | - LABORATORY | | | | + + + + + TSH (05/24/2015 6:11 PM PST) + + + + + + | Component | Value | Ref Range | Performed | Pathologist | | | | | At | Signature | + + + + + + | TSH | 1.83Comment: All TSH | 0.34 - 5.60 | [facility] | | | | samples are screened | uIU/mL | [facility] | | | | using a 2nd Generation | | MEDICAL | | | | test, and are reflexed | | CENTER - | | | | to a 3rd Generation test | | LABORATORY | | | | if indicated. | | | | + + + + + + + + | Specimen | + + | Blood | + + + + + + + | Performing | Address | City/State/Zipcode | Phone Number | | Organization | | | | + + + + + | [facility] | [address] | [place] | [phone] | | [facility] | | [address] | | | - LABORATORY | | | | + + + + + CBC with Differential (05/24/2015 6:11 PM PST) + +-------+ + + + | Component | Value | Ref Range | Performed | Pathologist | | | | | At | Signature | + +-------+ + + + | WBC | 7.4 | 4.0 - 11.0 K/uL | [facility] | | | | | | [facility] | | | | | | MEDICAL | | | | | | CENTER - | | | | | | LABORATORY | | + +-------+ + + + | RBC | 5.55 | 4.30 - 5.70 | [facility] | | | | | M/uL | [facility] | | | | | | MEDICAL | | | | | | CENTER - | | | | | | LABORATORY | | + +-------+ + + + | Hemoglobin | 16.3 | 13.5 - 18.0 | [facility] | | | | | g/dL | [facility] | | | | | | MEDICAL | | | | | | CENTER - | | | | | | LABORATORY | | + +-------+ + + + | Hematocrit | 49.0 | 40.0 - 51.0 % | [facility] | | | | | | [facility] | | | | | | MEDICAL | | | | | | CENTER - | | | | | | LABORATORY | | + +-------+ + + + | MCV | 88.3 | 83.0 - 101.0 fL | [facility] | | | | | | [facility] | | | | | | MEDICAL | | | | | | CENTER - | | | | | | LABORATORY | | + +-------+ + + + | MCH | 29.3 | 28.0 - 35.0 pg | [facility] | | | | | | [facility] | | | | | | MEDICAL | | | | | | CENTER - | | | | | | LABORATORY | | + +-------+ + + + | MCHC | 33.2 | 32.0 - 36.0 | [facility] | | | | | g/dL | [facility] | | | | | | MEDICAL | | | | | | CENTER - | | | | | | LABORATORY | | + +-------+ + + + | RDW-CV | 13.4 | <15.0 % | [facility] | | | | | | [facility] | | | | | | MEDICAL | | | | | | CENTER - | | | | | | LABORATORY | | + +-------+ + + + | Platelet | 144 | 140 - 440 K/uL | [facility] | | | Count | | | [facility] | | | | | | MEDICAL | | | | | | CENTER - | | | | | | LABORATORY | | + +-------+ + + + | MPV | 8.8 | fL | [facility] | | | | | | [facility] | | | | | | MEDICAL | | | | | | CENTER - | | | | | | LABORATORY | | + +-------+ + + + | % | 64.3 | 45.0 - 82.0 % | [facility] | | | Neutrophils | | | [facility] | | | | | | MEDICAL | | | | | | CENTER - | | | | | | LABORATORY | | + +-------+ + + + | % | 24.9 | 20.0 - 45.0 % | [facility] | | | Lymphocytes | | | [facility] | | | | | | MEDICAL | | | | | | CENTER - | | | | | | LABORATORY | | + +-------+ + + + | % Monocytes | 6.7 | 4.0 - 12.0 % | [facility] | | | | | | [facility] | | | | | | MEDICAL | | | | | | CENTER - | | | | | | LABORATORY | | + +-------+ + + + | % | 3.2 | 0.0 - 5.0 % | [facility] | | | Eosinophils | | | [facility] | | | | | | MEDICAL | | | | | | CENTER - | | | | | | LABORATORY | | + +-------+ + + + | % Basophils | 0.9 | 0.0 - 1.0 % | [facility] | | | | | | [facility] | | | | | | MEDICAL | | | | | | CENTER - | | | | | | LABORATORY | | + +-------+ + + + | Absolute | 4.70 | 1.80 - 8.50 | [facility] | | | Neutrophils | | K/uL | [facility] | | | | | | MEDICAL | | | | | | CENTER - | | | | | | LABORATORY | | + +-------+ + + + | Absolute | 1.80 | 0.60 - 3.20 | [facility] | | | Lymphocytes | | K/uL | [facility] | | | | | | MEDICAL | | | | | | CENTER - | | | | | | LABORATORY | | + +-------+ + + + | Absolute | 0.50 | 0.00 - 1.00 | [facility] | | | Monocytes | | K/uL | [facility] | | | | | | MEDICAL | | | | | | CENTER - | | | | | | LABORATORY | | + +-------+ + + + | Absolute | 0.20 | 0.00 - 0.40 | [facility] | | | Eosinophils | | K/uL | [facility] | | | | | | MEDICAL | | | | | | CENTER - | | | | | | LABORATORY | | + +-------+ + + + | Absolute | 0.10 | 0.00 - 0.10 | [facility] | | | Basophils | | K/uL | [facility] | | | | | | MEDICAL | | | | | | CENTER - | | | | | | LABORATORY | | + +-------+ + + + + + | Specimen | + + | Blood | + + + + + + + | Performing | Address | City/State/Zipcode | Phone Number | | Organization | | | | + + + + + | [facility] | [address] | [place] | [phone] | | [facility] | | [address] | | | - LABORATORY | | | | + + + + + Comprehensive Metabolic Panel (05/24/2015 6:11 PM PST) + + + + + + | Component | Value | Ref Range | Performed | Pathologist | | | | | At | Signature | + + + + + + | Na | 142 | 136 - 149 | [facility] | | | | | mmol/L | [facility] | | | | | | MEDICAL | | | | | | CENTER - | | | | | | LABORATORY | | + + + + + + | K | 4.1 | 3.5 - 5.1 | [facility] | | | | | mmol/L | [facility] | | | | | | MEDICAL | | | | | | CENTER - | | | | | | LABORATORY | | + + + + + + | Cl | 103 | 98 - 109 mmol/L | [facility] | | | | | | [facility] | | | | | | MEDICAL | | | | | | CENTER - | | | | | | LABORATORY | | + + + + + + | CO2 | 29 | 24 - 31 mmol/L | [facility] | | | | | | [facility] | | | | | | MEDICAL | | | | | | CENTER - | | | | | | LABORATORY | | + + + + + + | Anion Gap | 10 | 3 - 16 mmol/L | [facility] | | | | | | [facility] | | | | | | MEDICAL | | | | | | CENTER - | | | | | | LABORATORY | | + + + + + + | Glucose | 94 | 70 - 109 mg/dL | [facility] | | | | | | [facility] | | | | | | MEDICAL | | | | | | CENTER - | | | | | | LABORATORY | | + + + + + + | BUN | 13 | 7 - 18 mg/dL | [facility] | | | | | | [facility] | | | | | | MEDICAL | | | | | | CENTER - | | | | | | LABORATORY | | + + + + + + | Creatinine | 1.05 | 0.60 - 1.30 | [facility] | | | | | mg/dL | [facility] | | | | | | MEDICAL | | | | | | CENTER - | | | | | | LABORATORY | | + + + + + + | eGFR if not | >60Comment: GLOMERULAR | >=60 | [facility] | | | | FILTRATION | mL/min/1.73m2 | [facility] | | | ANGUILLAN | RATE,ESTIMATED | | MEDICAL | | | | mL/min/1.11o9Htsn than | | CENTER - | | | | 60 Chronic kidney | | LABORATORY | | | | disease,if found over a | | | | | | 3-month period.Less than | | | | | | 15 Kidney failureFor | | | | | | | | | | | | Americans,multiply the | | | | | | calculated GFR by 1.21. | | | | | | | | | | + + + + + + | Calcium | 9.0 | 8.3 - 10.5 | [facility] | | | | | mg/dL | [facility] | | | | | | MEDICAL | | | | | | CENTER - | | | | | | LABORATORY | | + + + + + + | Albumin | 4.2 | 3.2 - 5.0 g/dL | [facility] | | | | | | [facility] | | | | | | MEDICAL | | | | | | CENTER - | | | | | | LABORATORY | | + + + + + + | Bilirubin | 0.8 | 0.1 - 1.5 mg/dL | [facility] | | | Total | | | [facility] | | | | | | MEDICAL | | | | | | CENTER - | | | | | | LABORATORY | | + + + + + + | Total | 6.7 | 6.0 - 7.8 g/dL | [facility] | | | Protein | | | [facility] | | | | | | MEDICAL | | | | | | CENTER - | | | | | | LABORATORY | | + + + + + + | AST | 22 | 10 - 42 U/L | [facility] | | | | | | [facility] | | | | | | MEDICAL | | | | | | CENTER - | | | | | | LABORATORY | | + + + + + + | ALT | 18 | 6 - 45 U/L | [facility] | | | | | | [facility] | | | | | | MEDICAL | | | | | | CENTER - | | | | | | LABORATORY | | + + + + + + | Alkaline | 60 | 40 - 110 U/L | [facility] | | | Phosphatase | | | [facility] | | | | | | MEDICAL | | | | | | CENTER - | | | | | | LABORATORY | | + + + + + + | Globulin | 2.5 | g/dL | [facility] | | | | | | [facility] | | | | | | MEDICAL | | | | | | CENTER - | | | | | | LABORATORY | | + + + + + + | Albumin/Wen | 1.7 | | [facility] | | | bulin Ratio | | | [facility] | | | | | | MEDICAL | | | | | | CENTER - | | | | | | LABORATORY | | + + + + + + | BUN/Creatin | 12.4 | | [facility] | | | ine Ratio | | | [facility] | | | | | | MEDICAL | | | | | | CENTER - | | | | | | LABORATORY | | + + + + + + + + | Specimen | + + | Blood | + + + + + + + | Performing | Address | City/State/Zipcode | Phone Number | | Organization | | | | + + + + + | [facility] | [address] | [place] | [phone] | | [facility] | | [address] | | | - LABORATORY | | | | + + + + + Troponin I (05/24/2015 6:11 PM PST) + + + + + + | Component | Value | Ref Range | Performed | Pathologist | | | | | At | Signature | + + + + + + | Troponin I | <0.01Comment: Reference | <0.06 ng/mL | [facility] | | | | Ranges:0.00-0.06 = | | [facility] | | | | NORMAL>0.06 = | | MEDICAL | | | | SUSPICIOUS FOR | | CENTER - | | | | MYOCARDIAL DAMAGE NOTE: | | LABORATORY | | | | Values greater than 0.50 | | | | | | ng/mL have been shown | | | | | | to be strongly | | | | | | associated with acute | | | | | | myocardial infarction. | | | | | | The [employer] | | | | | | Cardiology (ACC) | | | | | | recommends a decision | | | | | | limit of 0.06 ng/mL for | | | | | | this assay. Results | | | | | | greater than 0.06 can | | | | | | reflect a pre-infarct | | | | | | acute coronary syndrome, | | | | | | but can also reflect | | | | | | myocardial necrosis or | | | | | | injury that is not due | | | | | | to coronary artery | | | | | | disease. Some of these | | | | | | causes are sepsis, | | | | | | hypocolemia, atrial | | | | | | fibrillation, heart | | | | | | failure, pulmonary | | | | | | embolism, myocarditis, | | | | | | myocardial contusion, | | | | | | and renal failure. The | | | | | | diagnosis of myocardial | | | | | | infarction should be | | | | | | based on a combination | | | | | | of the patient's | | | | | | clinical presentation | | | | | | and the clinical | | | | | | laboratory test results | | | | | | (especially serial | | | | | | troponin levels). | | | | + + + + + + + + | Specimen | + + | Blood | + + + + + + + | Performing | Address | City/State/Zipcode | Phone Number | | Organization | | | | + + + + + | [facility] | [address] | [place] | [phone] | | [facility] | | [address] | | | - LABORATORY | | | | + + + + + ECG 12 lead (05/24/2015 5:59 PM PST) + + + + + + | Component | Value | Ref Range | Performed | Pathologist | | | | | At | Signature | + + + + + + | VENTRICULAR | 59 | BPM | [facility] | | | RATE EKG | | | | | + + + + + + | ATRIAL RATE | 59 | BPM | [facility] | | + + + + + + | P-R | 208 | ms | [facility] | | | INTERVAL | | | | | + + + + + + | QRS | 94 | ms | [facility] | | | DURATION | | | | | + + + + + + | Q-T | 416 | ms | [facility] | | | INTERVAL | | | | | + + + + + + | Q-T | 411 | ms | [facility] | | | INTERVAL | | | | | | (CORRECTED) | | | | | + + + + + + | P WAVE AXIS | 60 | degrees | [facility] | | + + + + + + | QRS AXIS | 43 | degrees | [facility] | | + + + + + + | T AXIS | 47 | degrees | [facility] | | + + + + + + | INTERPRETAT | Sinus bradycardia with | | [facility] | | | ION TEXT | first-degree AV | | | | | | blockpossible Septal | | | | | | infarct , age | | | | | | undeterminedST segments | | | | | | in leads V2 | | | | | | | | | | | | V4 cannot be interpreted | | | | | | secondary to artifact: | | | | | | Cannot exclude | | | | | | ischemia/infarctionAbnor | | | | | | mal ECG Reconfirmed by | | | | | | PADMINI WYATT MD ([id number]) | | | | | | on 05/26/2015 7:26:25 AM | | | | | | | [...] + | Diagnosis | + + | Palpitations - Primary | + + documented in this encounter
--- OUTSIDE RECORDS SUMMARY | ~2019-10-28 | XMS | Encounter Summary ---
Demographics + + + | Address | [address] | | | [place] [address] | + + + | Home Phone | | + + + | Preferred Language | Unknown | + + + | Marital Status | Legally | + + + | Scientology Affiliation | 1013 | + + + | Race | Unknown | + + + | Ethnic Group | Unknown | + + + Author + + + | Author | [facility] | | | and [place] | + + + | Organization | [facility] | | | and [place] [...] | | | | | [place] [address] | | + + + + + Care Team Providers + +------+ + | Care Straw Hat Machine Operator Name | Role | Phone | + [...] | | | | ANKIT LEVINE | [place] [address] | | | | | [place] [address] | | | | | | [phone] | | | +--------+ + + + [...] + +--------+ + + + | XR LUMBAR SPINE 2 OR | Routin | 05/07/2019 | | Results for this | | 3 VW | e | 12:10 AM | | procedure are in the | | | | PST | | results section. | + +--------+ + + + documented in this encounter Results XR Lumbar Spine 2 or 3 Vw (05/07/2019 12:10 AM PST) + + | Specimen | [...]
--- OUTSIDE RECORDS SUMMARY | ~2019-10-28 | XMS | Encounter Summary ---
Demographics + + + | Address | [address] | | | [place] [address] | + + + | Home Phone | | + + + | Preferred Language | Unknown | + + + | Marital Status | Legally | + + + | Judaism Affiliation | 1013 | + + + | Race | Unknown | + + + | Ethnic Group | Unknown | + + + Author + + + | Author | [facility] | | | and [place] | + + + | Organization | [facility] | | | and [place] [...] | | | | | [place] [address] | | + + + + + Care Team Providers + +------+ + | Care Shirt Folding Machine Operator Name | Role | Phone [...] | CARDIOLOGY [address] | | | | | [place], | [place], | | | | | [place] [address] | [place] [address] | | | | | [phone] | [phone] | | | | | | | [...]
--- OUTSIDE RECORDS SUMMARY | ~2019-10-28 | XMS | Encounter Summary ---
Demographics + + + | Address | [address] | | | [place] [address] | + + + | Home Phone | | + + + | Preferred Language | Unknown | + + + | Marital Status | Legally | + + + | Synagogue Affiliation | 1013 | + + + | Race | Unknown | + + + | Ethnic Group | Unknown | + + + Author + + + | Author | [facility] | | | and [place] | + + + | Organization | [facility] | | | and [place] | + + + | Address | Unknown | + + + | Phone | Unavailable | + + + Support + + + + + | Name | Relationship | Address | Phone | + + + + + | Nikia Borges | ECON | [address] | | | | | [place] [address] | | + + + + + Care Team Providers + +------+ + | Care Environmental Tech Name | Role | Phone | + +------+ + | Nikolas Lusi MD | PCP | | + +------+ + Reason for Visit +--------+ + | Reason | Comments | +--------+ + | Other | IC needed to follow chest pain in ER | +--------+ + Encounter Details +--------+ + + + + | Date | Type | Department | Care Team | Description | +--------+ + + + + | 05/26/ | Telephone | [facility] | Donna Ladyvanesa, | Other (IC needed to | | 2014 | | CARDIOLOGY [address] | [address] | follow chest pain in | | | | [place], | [place], | [place]) | | | | [place] [address] | [place] [address] | | | | | [phone] | [phone] | | | | | | | [...]
--- OUTSIDE RECORDS SUMMARY | ~2019-10-28 | XMS | Encounter Summary ---
Demographics + + + | Address | [address] | | | [place] [address] | + + + | Home Phone | | + + + | Preferred Language | Unknown | + + + | Marital Status | Legally | + + + | Holiness Affiliation | 1013 | + + + | Race | Unknown | + + + | Ethnic Group | Unknown | + + + Author + + + | Author | [facility] | | | and [place] | + + + | Organization | [facility] | | | and [place] [...] | | | | | [place] [address] | | + + + + + Care Team Providers + +------+ + | Care Branding Machine Tender Name | Role | Phone | + [...] | Emergency | [facility] | [facility] [place], | Palpitations | | 2015 | | [facility] | MD [address] | (Primary Dx) | | | | CENTER [address] | [facility] [place] | | | | | [place], [place] | [place] [address] | | | | | [address] | [phone] | | | | | [phone] | | | +--------+ + + + [...] sent through Care Everywhere.PALPITATIONS (E NGLISH)HOLTER MONITOR (MACEDONIAN)documented in this encounter Plan of Treatment Not [...] + | [facility] | [address] | [place] | [phone] | | [facility] | | [address] | | | - LABORATORY | | [...] + | [facility] | [address] | [place] | [phone] | | [facility] | | [address] | | | - LABORATORY | | [...] [address] | [place] | [phone] | | [facility] | | [address] | | | - LABORATORY | | [...] + | [facility] | [address] | [place] | [phone] | | [facility] | | [address] | | | - LABORATORY | | [...] + | [facility] | [address] | [place] | [phone] | | [facility] | | [address] | | | - LABORATORY | | [...] mL/min/1.73m2 | [facility] | | | [facility] | RATE,ESTIMATED | | MEDICAL | | | | mL/min/1.79s9Qgof than | | CENTER - | | [...] [address] | [place] | [phone] | | [facility] | | [address] | | | - LABORATORY | | [...] | | | | | | [employer] | | | | | [...] + | [facility] | [address] | [place] | [phone] | | [facility] | | [address] | | | - LABORATORY | | [...] | | | | PADMINI WYATT MD ([id number]) | | | | | | on [...]
--- OUTSIDE RECORDS SUMMARY | ~2019-10-28 | XMS | Encounter Summary ---
Demographics + + + | Address | [address] | | | [place] [address] | + + + | Home Phone | | + + + | Preferred Language | Unknown | + + + | Marital Status | Legally | + + + | Adventism Affiliation | 1013 | + + + | Race | Unknown | + + + | Ethnic Group | Unknown | + + + Author + + + | Author | [facility] | | | and [place] | + + + | Organization | [facility] | | | and [place] [...] | | | | | [place] [address] | | + + + + + Care Team Providers + +------+ + | Care Fiber Designer Name | Role | Phone | + [...] + | 05/26/ | Telephone | [facility] | Donna Ladyvanesa, | Other (IC needed to | | 2014 | | CARDIOLOGY [address] | [address] [place] | follow chest pain in | | | | [place], | [place], | ER) | | | | [place] [address] | [place] [address] | | | | | [phone] | [phone] | | | | | | | [...]
--- OUTSIDE RECORDS SUMMARY | ~2019-10-28 | XMS | Encounter Summary ---
Demographics + + + | Address | [address] | | | [place] [address] | + + + | Home Phone | | + + + | Preferred Language | Unknown | + + + | Marital Status | Legally | + + + | Jain Affiliation | 1013 | + + + | Race | Unknown | + + + | Ethnic Group | Unknown | + + + Author + + + | Author | [facility] | | | and [place] | + + + | Organization | [facility] | | | and [place] [...] | | | | | [place] [address] | | + + + + + Care Team Providers + +------+ + | Care Aeroplane Pilot Name | Role | Phone | + [...] | | | | ANKIT LEVINE | [place] [address] | | | | | [place] [address] | | | | | | [phone] | | | +--------+ + + + [...] +--------+ + + + | XR HIP LEFT 2-3 | Routin | 05/07/2019 | | Results for this | | VIEWS | e | 12:05 AM | | procedure are in the | | | | PST | | results section. | + +--------+ + + + documented in this encounter Results XR Hip Left 2-3 Views (05/07/2019 12:05 AM PST) + + | Specimen | [...]
--- OUTSIDE RECORDS SUMMARY | ~2019-10-28 | XMS | Encounter Summary ---
Demographics + + + | Address | [address] | | | [place] [address] | + + + | Home Phone | | + + + | Preferred Language | Unknown | + + + | Marital Status | Legally | + + + | Anglican Affiliation | 1013 | + + + | Race | Unknown | + + + | Ethnic Group | Unknown | + + + Author + + + | Author | [facility] | | | and [place] | + + + | Organization | [facility] | | | and [...] | | | | | [place] [address] | | + + + + + Care Team Providers + +------+ + | Care Laundry Superintendent Name | Role | Phone | + [...] + + | 08/24/ | Office | [facility] | Ben, | Chest pain in adult | | 2017 | Visit | CARDIOLOGY [address] | [place] | (Primary Dx); | | | | [place], | [place], | Palpitations; | | | | [place] [address] | [place] [address] | Hyperlipidemia, | | | | [phone] | [phone] | mixed | | | | | [...] around his property in his spare [email or web address]. He has not had any chest pain [...] of breath. He is going to the [facility] and wants to know w hat he needs to take for travel. MEDICAL, SURGICAL, AND PERSONAL HISTORY Past Medical, Surgical, Family, and Social History are reviewed in EPIC. CURRENT PROBLEMS Patient Active Problem List Diagnosis Chest pain in adult Palpitations Hyperlipidemia, mixed CURRENT MEDICATIONS Current Outpatient Prescriptions Medication Sig Dispense Refill aspirin 325 mg tablet Take 325 mg by mouth Daily. Crestone-3 Fatty Acids (FISH OIL) 1200 MG CAPS [...] RESULTS reviewed during visit today primarily from [facility]: LIPID Lab Results Component Value Date [...] PLT 144 05/24/2015 I reviewed records from [facility] for office visit on 01/2016 whi ch [...] decided to come into the ED of [place] where all the original blood work wa [...] He is in a class I of [place] Heart Association functional class . There is [...] statin anymore. We have talked about his Sibley scores and he has decided to restart Pravastatin PLAN: 1. Restart pravastatin 40 mg by mouth daily at bedtime 2. He will follow up in 1 year, or sooner with concerns. Portions of this chart may have been created with [employer] voice recognition software. Occasi onal wrong-word or [...] MD | | | | | | ([id number]) on 08/24/2016 | | | | | [...]
--- OUTSIDE RECORDS SUMMARY | ~2019-10-28 | XMS | Clinical Summary ---
Demographics + + + | Address | [address] | | | [place] [address] | + + + | Home Phone | | + + + | Preferred Language | Unknown | + + + | Marital Status | Single | + + + | Latter Day Affiliation | 1013 | + + + | Race | Unknown | + + + | Ethnic Group | Unknown | + + + Author + + + | Author | [facility] (Historical as of | | | 02-10-19) | + + + | Organization | [facility] (Historical as of | | | 02-10-19) [...] Team Providers + +------+ + | Care Lockstitch Zipper Setter Name | Role | Phone | + [...] +------+-------+ + | MEDICAID | [place] | [id number] | | | [address] | | | [place] | | | | [place] | | | [place] | | | | [address] | | | [employer] | | | | | + +--------+ [...] | | al/Isaac | | 1966 | [phone] [place] [address] | | | adam | | | [birth year] | | + +--------+ +--------+ + +"
--- OUTSIDE RECORDS SUMMARY | ~2019-10-28 | XMS | Encounter Summary ---
Demographics + + + | Address | [address] | | | [place] [address] | + + + | Home Phone | | + + + | Preferred Language | Unknown | + + + | Marital Status | Legally | + + + | Amish Affiliation | 1013 | + + + | Race | Unknown | + + + | Ethnic Group | Unknown | + + + Author + + + | Author | [facility] | | | and [place] | + + + | Organization | [facility] | | | and [place] [...] | | | | | [place] [address] | | + + + + + Care Team Providers + +------+ + | Care Primary Products Inspectors Name | Role | Phone | + +------+ + | Nikolas Luis MD | PCP | | + +------+ + Reason for Visit + + + | Reason | Comments | + + + | Appointment | | + + + Encounter Details +--------+ + + + + | Date | Type | Department | Care Team | Description | +--------+ + + + + | 08/13/ | Telephone | [facility] | Ben, | Appointment | | 2016 | | CARDIOLOGY [address] | [facility] [address] | | | | | [place], | [place], | | | | | [place] [address] | [place] [address] | | | | | [phone] | | | | | | | [...]
--- OUTSIDE RECORDS SUMMARY | ~2019-10-28 | XMS | Encounter Summary ---
Demographics + + + | Address | [address] | | | [place] [address] | + + + | Home Phone | | + + + | Preferred Language | Unknown | + + + | Marital Status | Legally | + + + | Mandaen Affiliation | 1013 | + + + | Race | Unknown | + + + | Ethnic Group | Unknown | + + + Author + + + | Author | [facility] | | | and [place] | + + + | Organization | [facility] | | | and [...] | | | | | [place] [address] | | + + + + + Care Team Providers + +------+ + | Care Biopharmaceutical Rep Name | Role | Phone | + +------+ + | Nikolas Luis MD | PCP | | + +------+ + Reason for Visit + + + | Reason | Comments | + + + | Follow-up | | + + + | Chest Pain | | + + + Encounter Details +--------+---------+ + + + | Date | Type | Department | Care Team | Description | +--------+---------+ + + + | 06/25/ | Office | [facility] | [place], | Palpitations | | 2015 | Visit | CARDIOLOGY [address] | [address] | (Primary Dx); Chest | | | | [place], | [place], | pain in adult; | | | | [place] [phone] | [place] [phone] | Hypercholesterolemia | | | | [phone] | [phone] | | | | | | | [...] + + + | Blood Pressure | 128/82 | 06/25/2015 12:51 PM | | | | | PST | | + + + + + | Pulse | 66 | 06/25/2015 12:51 PM | | | | | PST | | + + + + + | Temperature | - | - | | + + + + + | Respiratory Rate | 18 | 06/25/2015 12:51 PM | | | | | PST | | + + + + + | Oxygen Saturation | - | - | | + + + + + | Inhaled Oxygen | - | - | | | Concentration | | | | + + + + + | Weight | 102.5 kg (226 lb) | 06/25/2015 12:51 PM | | | | | PST | | + + + + + | Height | 182.9 cm (6') | 06/25/2015 12:51 PM | | | | | PST | | + + + + + | Body Mass Index | 30.65 | 06/25/2015 12:51 PM | | | | | PST | | + + + + + documented in this encounter Patient Instructions Patient Instructions Vida Sepulveda ARNP - 06/25/2015 4:43 PM PST1. Start Pravastatin 40 mg once every evening by mouth 2. Check lipid profile and CMP in 6 weeks. 3. Start Fish oil 1200 mg once every day 4. Follow up in 7 weeks with labs or sooner if any concerns documented in this encounter Progress Notes Vida Sepulveda ARNP - 06/25/2015 12:44 PM PSTFormatting of this note might be different f rom the original. PATIENT NAME: Sukumar Pennington : 1965: AGE: 49 y.o. PRIMARY CARE: Nikolas Luis OUTPATIENT FOLLOW UP VISIT Date of Service: 06/25/2015 HISTORY OF PRESENT ILLNESS: Sukumar Pennington is a 49 y.o. male with a history of hyperlipidemia. He is being see n today for follow up stress test results and Holter monitor for chest pain discomfort. He was last seen 05/27/2015 at which time he was scheduled for stress test and Holter monit or with also a lipid profile and a follow-up appointment in 4 months. Since that time, he h as been feeling "pretty good". He has had a good energy level. He tries to stay active. He does 30 minutes of cardio and lifts weight 15-20 minutes every day. He enjoys working out in his spare time. He has not had any chest pain or discomfort at rest or with exertion. He has not noticed shortness of breath. He has not had any lightheadedness or dizziness. Flo adair has had "flip flopping feeling in his heart" that associates with some pressure. This has not gotten any worse, on the contrary it has gotten better. He noticed those symptoms increa sed when he started taking 2 cups a coffee more a day. He has not had leg swelling. He is able to sleep laying down at night without any symptoms of shortness of breath. Overall his cardiac complaints have been better. MEDICAL, SURGICAL, AND PERSONAL HISTORY Past Medical, Surgical, Family, and Social History are reviewed in EPIC. CURRENT PROBLEMS Patient Active Problem List Diagnosis Chest pain in adult Palpitations Hyperlipidemia CURRENT MEDICATIONS Current Outpatient Prescriptions Medication Sig [...] Lightheaded = No OBJECTIVE: PHYSICAL EXAM BP 128/82 mmHg | Pulse 66 | Resp 18 | Ht 1.829 m (6') | Wt 102.513 kg (226 lb) | BMI 30.64 kg/m2 Physical Exam Constitutional: He appears well-developed [...] ibit a depressed mood. ECG: I personally reviewed ECG tracing from 05/27/2015. LAB RESULTS: LIPID Lab Results Component Value Date CHOLHDL 7.3* 05/29/2015 LDLEX 179* 05/29/2015 HDLEX 36.1* 05/29/2015 TRIGEX 244* 05/29/2015 CHOLEX 264* 05/29/2015 CHEMISTRY Lab Results Component Value Date GLU [...] PLT 144 05/24/2015 I reviewed records from [facility] for office visit on 05/27/2015. ASSESSMENT: 1. Atypical chest pain A. Patient [...] to co me into the ED of [place] where all the original blood work was [...] SPECT is 54 %. C. Today, patient has had no further episodes of chest pressure or palpitations. Overall h e is feeling better. He remains physically active without any symptoms. He is in a class I of [place] [employer] functional class. There is no signs and symptoms of overt con gestive heart failure. There are no fluid retention on physical examination. 2. Palpitations: A. Holter [...] or pulsating." B. Symptoms have improved. 3. Hyperlipidemia A. He was on simvastatin for 6 months but has stopped taking it 2 months ago. B. His lipid profile today shows borderline hyperlipidemia. He has a strong family history of coronary artery disease and hyperlipidemia. He will try to restart a statin. He has trie d simvastatin and atorvastatin with side effects of lip numbness and tingling. We will try a different statin since patient does not known coronary artery disease or diabetes. PLAN: 1. Start Pravastatin 40 mg once every evening by mouth 2. Check lipid profile and CMP in 6 weeks. 3. Start Fish oil 1200 mg once every day 4. Follow up in 7 weeks with labs or sooner if any concerns Portions of this chart may have been created with [employer] voice recognition software. Occasi onal wrong-word or [...] Lipid Profile | Lab | Routin | | 1 Occurrences | | | | e | Hypercholesterolemia | starting 06/25/2015 | | | | | | until 06/25/2016 | + +------+--------+ + + | Comprehensive | Lab | Routin | | 1 Occurrences | | Metabolic Panel | | e | Hypercholesterolemia | starting 06/25/2015 | | | | | | until 06/25/2016 | + +------+--------+ + + documented as of this encounter Visit Diagnoses + + | Diagnosis | + + | Palpitations - Primary | + + | Chest pain in adult | + + | Hypercholesterolemia Pure hypercholesterolemia | + + documented in this encounter
--- OUTSIDE RECORDS SUMMARY | ~2019-10-28 | XMS | Clinical Summary ---
Demographics + + + | Address | [address] | | | [place] [address] | + + + | Home Phone | | + + + | Preferred Language | Unknown | + + + | Marital Status | Legally | + + + | Worship Affiliation | 1013 | + + + | Race | Unknown | + + + | Ethnic Group | Unknown | + + + Author + + + | Author | [facility] | | | and [place] | + + + | Organization | [facility] | | | and [...] | | | | | [place] [address] | | + + + + + Care Team Providers + +------+ + | Care Movie Projectionist Name | Role | Phone | + +------+ + | Boy Moran MD | PCP | | + +------+ + Allergies + + + + + + | Active Allergy | Reactions | Severity | Noted | Comments | | | | | Date | | + + + + + + | Atorvastatin | Other (See Comments) | | 10/12/19 | Numb lips and | | | | | 18 | tongue | + + + + + + | Simvastatin | Rash, Other (See | Low | 05/27/20 | Body aches, rash | | | Comments) | | 15 | , his head felt | | | | | | foggy | + + + + + + Medications + + + +---------+------+------+-------+ | Medication | Sig | Dispensed | Refills | Star | End | Statu | | | | | | t | Date | s | | | | | | Date | | | + + + +---------+------+------+-------+ | Sparkman-3 Fatty | Take 1,200 mg by | 30 each | 11 | 12/3 | | Activ | | Acids (FISH OIL) | mouth Daily. | | | 0/20 | | e | | 1200 MG CAPS | | | | 15 | | | + + + +---------+------+------+-------+ | Red Yeast Rice | Take 1 tablet by | | 0 | | | Activ | | Extract (RED YEAST | mouth every evening. | | | | | e | | RICE PO) | | | | | | | + + + +---------+------+------+-------+ | pravastatin | Take 1 tablet by | 90 | 3 | 11/0 | | Activ | | (PRAVACHOL) 40 MG | mouth nightly. | tablet | | 1/20 | | e | | tablet | | | | 17 | | | + + + +---------+------+------+-------+ | sildenafil | Take 1 tablet by | 5 | 1 | 11/3 | | Activ | | (VIAGRA) 25 MG | mouth as needed for | tablet | | 0/20 | | e | | tablet | Erectile | | | 17 | | | | | Dysfunction. | | | | | | + + + +---------+------+------+-------+ | ciprofloxacin | Take 1 tab po 1 hour | 6 | 0 | 09/ | | Activ | | (CIPRO) 500 mg | prior to biopsy; | tablet | | 10/14 | | e | | tablet | then take 1 tab po | | | 19 | | | | | every 12 hours | | | | | | | | thereafter | | | | | | + + + +---------+------+------+-------+ Active Problems + + + | Problem | Noted Date | + + + | Prostate cancer | 02/28/2019 | + + + | Chest pain in adult | | + + + + + | Overview: Stress Test 06/06/15, shows exercise EKG is | | negative, blood pressure response is normal, the patient had | | Fatigue but no chest pain during the procedure, there is no | | arrhythmia during procedure, exercise tolerance is above average | | for age, normal exercise sestamibi myocardial perfusion imaging | | study, normal left ventricular size, wall thickness and motion, | | preserved left ventricular systolic function, LVEF by gated SPECT | | is 54 %. | + + + +---+ | Palpitations | | + +---+ + + | Overview: Holter Monitor 05/24/15, shows predominant rhythm | | is normal sinus with the heart rate ranging between 48 and 173 | | BPM, average heart rate was 72 BPM during the 47:30 hour | | recording, very rare PVC | | | | s, all singles, very rare PAC | | | | s, 896 runs of bradycardia, the longest run was 689 beats | | (02:56-2) and a minimum rate of 41 BPM (05:36-2), 29 runs of | | sinus tachycardia, longest run was 2555 beats (08:10-2) and a | | maximum rate of 176 BPM (08:38-2), patient reported two symptoms | | of upper left chest "twitching or pulsating." | + + + +---+ | Hyperlipidemia, mixed | | + +---+ Immunizations + + + + | Name | Administration Dates | Next Due | + + + + | INFLUENZA TRIV | 06/10/2017 | | | W/PRES(PED/ADOL/ADUL | | | | T),MULTIDOSE | | | + + + + | TDAP, (ADOL/ADULT) | 06/10/2017 | | + + + + Family History + + +------+ + | Medical History | Relation | Name | Comments | + + +------+ + | Lymphoma | Father | | | + + +------+ + + + + + + | Relation | Name | Status | Comments | + + + + + | Brother | Elton | Alive | | + + + + + | Brother | 1/2 Tr | Alive | | + + + + + | Father | | | Diabetes, Lymphoma | | | | (Age | | | | | 71) | | + + + + + | Mother | | Alive | Heart valve | + + + + + | Sister | 1/2 Caridad | Alive | | + + + + + Social History + [...] + + + | Blood Pressure | 118/86 | 02/28/2019 9:29 AM | | | | | PDT | | + + + + + | Pulse | 64 | 02/28/2019 9:29 AM | | | | | PDT | | + + + + + | Temperature | 36.3 C (97.4 F) | 05/24/2015 6:07 PM | | | | | PST | | + + + + + | Respiratory Rate | 16 | 02/28/2019 9:29 AM | | | | | PDT | | + + + + + | Oxygen Saturation | 97% | 05/24/2015 7:45 PM | | | | | PST | | + + + + + | Inhaled Oxygen | - | - | | | Concentration | | | | + + + + + | Weight | 96.1 kg (211 lb 13.8 | 02/28/2019 9:29 AM | | | | oz) | PDT | | + + + + + | Height | 182.9 cm (6') | 02/28/2019 9:29 AM | | | | | PDT | | + + + + + | Body Mass Index | 28.73 | 02/28/2019 9:29 AM | | | | | PDT | | + + + + + Plan of Treatment + + + + + | Health Maintenance | Due Date | Last Done | Comments | + + + + + | Hepatitis C | | | | | Screening | 5 | | | + + + + + | Vaccine: | | | | | Pneumococcal 19-64 | 1 | | | | (1 of 3 - PCV13) | | | | + + + + + | Colorectal Cancer | | | | | Screening | 5 | | | | (Colonoscopy) | | | | + + + + + | Vaccine: Zoster (1 | | | | | of 2) | 5 | | | + + + + + | Vaccine: Influenza | | 06/10/2017 | | | (Season Ended) | 0 | | | + + + + + | Vaccine: | | 06/10/2017 | | | Dtap/Tdap/Td (2 - | 7 | | | | Td) | | | | + + + + + Results Not on filefrom Last 3 Months Insurance + +--------+ +--------+ +---------+--------+ | Payer | Benefi | Subscriber | Effect | Phone | Address | Type | | | t Plan | ID | zee | | | | | | / | | Dates | | | | | | Group | | | | | | + +--------+ +--------+ +---------+--------+ | [employer] | [employer] | [id number] | 02/01/20 | [phone] | | Medica | | MEDICAID HMO | HEALTH | | 19-Pre | 1 | | id | | | MDCD | | sent | | | | | | [place] | | | | | | + +--------+ +--------+ +---------+--------+ + +--------+ +--------+ + + | Guarantor Name | Accoun | Relation to | Date | Phone | Billing Address | | | t Type | Patient | of | | | | | | | | | | + +--------+ +--------+ + + | Sukumar Pennington | Person | Self | [birth year] | [address] [place], | | Gen | al/Isaac | | 1966 | [phone] | [place] [address] | | | adam | | | 7 (Home) | | + +--------+ +--------+ + + Advance Directives + + + + + | Type | Date Recorded | Patient | Explanation | | | | Supervisor In Circuit Testing | | + + + + + | Power of | | | | | | | | | + + + + + | Advance | 05/24/2015 | | Info Given | | Directive | 6:50 PM | | | + + + + +
--- OUTSIDE RECORDS SUMMARY | ~2019-10-28 | XMS | Encounter Summary ---
Demographics + + + | Address | [address] | | | [place] [address] | + + + | Home Phone | | + + + | Preferred Language | Unknown | + + + | Marital Status | Legally | + + + | Holiness Affiliation | 1013 | + + + | Race | Unknown | + + + | Ethnic Group | Unknown | + + + Author + + + | Author | [facility] | | | and [place] | + + + | Organization | [facility] | | | and [place] [...] | | | | | [place] [address] | | + + + + + Care Team Providers + +------+ + | Care Sandfill Operator Surface Name | Role | Phone | + [...] Description | +--------+---------+ + + + | 08/14/ | Office | [facility] | Ben, | Chest pain in adult | | 2016 | Visit | CARDIOLOGY [address] | ROB Mcpher[address] | (Primary Dx) | | | | [place], | [place], | | | | | [place] [address] | [place] [address] | | | | | [phone] | [phone] | | | | | | | [...] + + + | Blood Pressure | 118/82 | 08/14/2015 1:38 PM | | | | | PST | | + + + + + | Pulse | 60 | 08/14/2015 1:38 PM | | | | | PST | | + + + + + | Temperature | - | - | | + + + + + | Respiratory Rate | 20 | 08/14/2015 1:38 PM | | | | | PST | | + + + + + | Oxygen Saturation | - | - | | + + + + + | Inhaled Oxygen | - | - | | | Concentration | | | | + + + + + | Weight | 101.6 kg (224 lb) | 08/14/2015 1:38 PM | | | | | PST | | + + + + + | Height | 182.9 cm (6') | 08/14/2015 1:38 PM | | | | | PST | | + + + + + | Body Mass Index | 30.38 | 08/14/2015 1:38 PM | | | | | PST | | + + + + + documented in this encounter Progress Notes Vida Sepulveda ARNP - 08/14/2015 1:30 PM PSTFormatting of this note might be different f rom the original. PATIENT NAME: Sukumar Pennington : 1965: AGE: 49 y.o. PRIMARY CARE: Nikolas Luis OUTPATIENT FOLLOW UP VISIT Date of Service: 08/14/2015 HISTORY OF PRESENT ILLNESS: Sukumar Pennington is a 49 y.o. male with a history of hyperlipidemia. He is being see n today for follow up hyperlipidemia. He was last seen 06/25/2015 at which time he was to start pravastatin 40 mg by mouth once e very evening and check lipid profile in 6 weeks. Since that time, he has been feeling "a lo t better". The heaviness in his chest has disappear. He has had no further chest pressure, h e has no shortness of breath, lightheadedness or palpitations.He feels that "maybe my muscle s tired up faster after starting the Pravastatin" but he has had no significant intolerable complaints. He sleeps on 1 pillow at night and has no shortness of breath when laying down. He works out every day. MEDICAL, SURGICAL, AND PERSONAL HISTORY Past Medical, Surgical, Family, and Social History are reviewed in EPIC. CURRENT PROBLEMS Patient Active Problem List Diagnosis Chest pain in adult Palpitations Hyperlipidemia CURRENT MEDICATIONS Current Outpatient Prescriptions Medication Sig Dispense Refill aspirin 325 mg tablet Take 325 mg by mouth Daily. [place]-3 Fatty Acids (FISH OIL) 1200 MG CAPS Take 1,200 mg by mouth Daily. 30 each 11 pravastatin (PRAVACHOL) 40 MG tablet Take 1 tablet by mouth nightly. 30 tablet 11 No current facility-administered medications for this visit. ALLERGIES Allergies Allergen Reactions Simvastatin Rash and Other (See Comments) Body aches, rash , his head felt foggy ROS Review of Systems Constitutional: Positive for malaise/fatigue. Respiratory: Negative for shortness of breath. Cardiovascular: Positive for leg swelling ("Left lower Leg"). Negative for chest pain and p alpitations. Neurological: Positive for dizziness ("at night time after his pravastatin"). Negative for weakness. Lightheaded = No OBJECTIVE: PHYSICAL EXAM BP 118/82 mmHg | Pulse 60 | Resp 20 | Ht 1.829 m (6') | Wt 101.606 kg (224 lb) | BMI 30.37 kg/m2 Physical Exam Constitutional: He appears well-developed [...] I reviewed records from [facility] for office visit on 06/25/2015. ASSESSMENT: 1. Atypical chest pain A. Patient [...] to co me into the ED of [facility] where all the original blood work was [...] He is in a class I of [place] [employer] functional class. There is no [...] but has stopped taking it 2 months ago.He has tried simvastatin and atorvastatin with side effects of lip numbness and tingling. B. His lipid profile has improved drastically. He will continue with same regimen PLAN: 1. He is doing well from cardiac standpoint. He will continue same regimen and diet and phy sical activity 2. He will follow up in 6 months, or sooner with concerns. Portions of this chart may have been created with [employer] voice recognition software. Occasi onal wrong-word or sound-alike substitutions may have occurred due to the inherent sanders itations of voice recognition software. Please read the chart carefully and recognize, using context, where these substitutions have occurred. documented in this encounter Plan of Treatment Not on filedocumented as of this encounter Visit Diagnoses + + | Diagnosis | + + | Chest pain in adult - Primary | + + documented in this encounter
--- OUTSIDE RECORDS SUMMARY | ~2019-10-28 | XMS | Encounter Summary ---
Demographics + + + | Address | [address] | | | [place] [address] | + + + | Home Phone | | + + + | Preferred Language | Unknown | + + + | Marital Status | Legally | + + + | Buddhist Affiliation | 1013 | + + + | Race | Unknown | + + + | Ethnic Group | Unknown | + + + Author + + + | Author | [facility] | | | and [place] | + + + | Organization | [facility] | | | and [place] [...] | | | | | [place] [address] | | + + + + + Care Team Providers + +------+ + | Care Compensation Coordinator Name | Role | Phone | + +------+ + PCP | Unavailable | + +------+ + Encounter Details +--------+ + + + + | Date | Type | Department | Care Team | Description | +--------+ + + + + | 06/27/ | [facility] | [facility] | Tam [facility]ons | | | 2002 | Encounter | MED CTR EMERGENCY | MD [address] | | | | | CENTER [address] | [place] | | | | | [place] | [place] [address] | | | | | [address] | [phone] | | | | | [phone] | | | +--------+ + + + [...]
--- OUTSIDE RECORDS SUMMARY | ~2019-10-28 | XMS | Encounter Summary ---
Demographics + + + | Address | [address] | | | [place] [address] | + + + | Home Phone | | + + + | Preferred Language | Unknown | + + + | Marital Status | Single | + + + | Zoroastrianism Affiliation | NON | + + + | Race | White | + + + | Ethnic Group | Not or | + + + Author + + + | Author | [facility] | + + + | Organization | [facility] | + + + | Address | Unknown | + + + | Phone | Unavailable | + + + Support + + +---------+---------+ | Name | Relationship | Address | Phone | + + +---------+---------+ | Anayeli Pen[place] | ECON | Unknown | nophone | + + +---------+---------+ Care Team Providers + +------+ + | Care Technical Cable Jointer Name | Role | Phone | + +------+ + PCP | Unavailable | + +------+ + Encounter Details +--------+ + + + + | Date | Type | Department | Care Team | Description | +--------+ + + + + | 08/20/ | Procedure - | [facility] | Record, Operation | Operative Report | | 2006 | | [place] [facility] [address] | | | | | Transcribed | [address] | | | | | | Mailcode: [place] | | | | | | [facility] | | | | | | [facility]aling, [address] | | | | | | [place], [place] | | | | | | [address] | | | | | | [phone] | | | +--------+ + + + [...] | + +--------+ + + + | OPERATION RECORD | | 08/20/2006 | | Results for this | | | | 12:00 AM | | procedure are in the | | | | PST | | results section. | + +--------+ + + + documented in this encounter Results OPERATION RECORD (08/20/2006 12:00 AM PST) + + | Procedure Note | + + | 08/20/2006 12:00 AM PST | | [id number] | | [id number] [facility] [id number] | | | | Date: 08/20/2006 | | | | Attending Surgeon: Dave Cisneros M.D. | | | | Teacher Visually Impaired(s): Abelardo Dutta M.D. | | | | Preoperative Diagnosis(es): | | Saw injury to right hand. | | | | Postoperative Diagnosis(es): | | Saw injury to right hand. | | | | Procedures Performed: | | 1. Closure of right small fingertip wound with full-thickness skin graft | | from right groin (1.5 sq cm). | | 2. Revision amputation of right ring fingertip. | | 3. Revision amputation of right index fingertip. | | 4. Repair of volar right thumb laceration (4 cm). | | | | | | Anesthesia: | | General endotracheal. | | | | Indications: | | The patient is a 40-year-old right hand-dominant male who sustained a table | | saw injury to the right hand. He was initially evaluated in [facility] | | [place] and transferred to [facility] for further care. 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 The patient now presents to the | | operating room for a definitive wound management. | | | | Procedure: | | The right upper extremity was prepped and draped in the standard sterile | | fashion. The extremity was exsanguinated with an Esmarch bandage, and a | | right arm tourniquet inflated to 250 mmHg. Total tourniquet time was under | | 90 minutes. | | | | All of the wounds and lacerations were copiously irrigated with saline and | | debrided of any nonviable tissue. The wounds on each digit were serially | | inspected. The thumb wound consisted of a volar midline longitudinal | | laceration down to the level of the FPL tendon. The tendon is intact. As | | well, a preoperative assessment revealed that the neurovascular bundles | | bilaterally were intact. Following copious irrigation with saline, that | | wound was repaired using 5-0 nylon suture. | | | | The index finger sustained an oblique amputation down to the level of the | | base of the distal phalanx. Further bony debridement on this finger was | | performed with a rongeur until there was adequate soft tissue to provide | | wound closure. Wound closure was then obtained by approximating the volar | | and dorsal skin envelope with 5-0 nylon suture. A significant radial-sided | | dog ear was excised and re-closed using 5-0 nylon suture. | | | | The long finger was without significant injury. | | | | The ring finger sustained a crush injury to the tip of the distal phalanx | | and a soft tissue defect over the dorsum of the ring finger including | | greater than 75% of the nailbed and with exposed bone including distal | | phalanx fracture. The small remaining portion of nailbed was excised | | sharply with a #15 blade. The fracture was debrided with a rongeur. A | | minimal amount of further bony debridement was performed with a rongeur to | | allow the volar skin to be transposed dorsally over the fingertip to allow | | for wound closure. The volar flap was inset using 5-0 nylon suture. | | | | Finally, there was a dorsal soft tissue defect over the tip of the small | | finger which included relatively entire nailbed. There was exposed distal | | phalanx. The subcutaneous soft tissues exposing the wound were mobilized | | to allow coverage of the bone following debridement of small residual | | amounts of nailbed tissue. The local subcutaneous soft tissue flap was | | inset to the skin of the ulnar paronychial folds using 4-0 Vicryl suture. | | The skin defect was then closed by application of a small skin graft | | harvested from the right groin. The defatted skin graft was inset using | | 4-0 nylon and 4-0 chromic sutures. | | | | A 1.5 cm sq skin graft was harvested from the right groin in a standard | | fashion. A small skin ellipse was designed along the right groin crease | | and excised using a #15 blade. Hemostasis was achieved with | | electrocautery. Minimal skin edge undermining was also performed using | | electrocautery. The skin edges were reapproximated using 4-0 Biosyn dermal | | sutures. The skin was closed with a running subcuticular 4-0 Biosyn | | suture. | | | | The suture lines on the right hand were dressed with Xeroform gauze. The | | skin graft on the small finger was dressed with Adaptic and Polysporin and | | then covered with a saline saturated cotton ball which was secured with the | | tie over 4-0 nylon sutures. The hand was then wrapped in sterile cotton | | gauze and an Mitchell wrap. | | | | The right groin skin graft donor site was dressed with Mastisol and | | Steri-Strips and covered with Telfa and an Op-Site dressing. | | | | Both the right groin and right hand were injected with a solution of 0.25% | | plain Marcaine for postoperative pain control. | | | | The procedure was performed without complication. The patient tolerated | | the procedure well. He was extubated at the end of the procedure and | | transferred to the PACU in stable condition. | | | | | | | | | | Dave Cisneros M.D. | | | | GIULIA / GWYN | | [id number] / [id number] / [id number] / | | | | | | | | | | | | Electronically signed by Dave Cisneros 08-30-2006 04:18:21 PM | | | | | + + documented in this encounter Visit Diagnoses Not on filedocumented in this encounter"
--- OUTSIDE RECORDS SUMMARY | ~2019-10-28 | XMS | Encounter Summary ---
Demographics + + + | Address | [address] | | | [place] [address] | + + + | Home Phone | | + + + | Preferred Language | Unknown | + + + | Marital Status | Legally | + + + | Denominational Affiliation | 1013 | + + + | Race | Unknown | + + + | Ethnic Group | Unknown | + + + Author + + + | Author | [facility] | | | and [place] | + + + | Organization | [facility] | | | and [...] | | | | | [place] [address] | | + + + + + Care Team Providers + +------+ + | Care Electric Motor Repairing Supervisor Name | Role | Phone | + +------+ + PCP | Unavailable | + +------+ + Encounter Details +--------+ + + + + | Date | Type | Department | Care Team | Description | +--------+ + + + + | 06/27/ | [facility] | [facility] | Tam [place] | | | 2002 | Encounter | MED CTR EMERGENCY | MD [address] | | | | | CENTER [address] | [place] | | | | | [place] | [place] [address] | | | | | [address] | [phone] | | | | | [phone] | | | +--------+ + + + [...]
--- OUTSIDE RECORDS SUMMARY | ~2019-10-28 | XMS | Encounter Summary ---
Demographics + + + | Address | [address] | | | [place] [address] | + + + | Home Phone | | + + + | Preferred Language | Unknown | + + + | Marital Status | Legally | + + + | Pentecostalism Affiliation | 1013 | + + + | Race | Unknown | + + + | Ethnic Group | Unknown | + + + Author + + + | Author | [facility] | | | and [place] | + + + | Organization | [facility] | | | and [place] [...] | | | | | [place] [address] | | + + + + + Care Team Providers + +------+ + | Care Accounting Reconciliation Clerk Name | Role | Phone | + +------+ + | Nikolas Luis MD | PCP | | + +------+ + Encounter Details +--------+ + + + + | Date | Type | Department | Care Team | Description | +--------+ + + + + | 08/11/ | Abstract | [facility] | Ben, | | | 2015 | | CARDIOLOGY [address] | [address] | | | | | [place], | [place], | | | | | [place] [address] | [place] [address] | | | | | [phone] | [phone] | | | | | | | [...] | EXTERNAL LAB: BUN | Routin | 08/06/2015 | | Results for this | | | e | | | procedure are in the | | | | | | results section. | + +--------+ + + + | EXTERNAL LAB: | Routin | 08/06/2015 | | Results for this | | GLUCOSE | e | | | procedure are in the | | | | | | results section. | + +--------+ + + + | EXTERNAL LAB: ALT | Routin | 08/06/2015 | | Results for this | | | e | | | procedure are in the | | | | | | results section. | + +--------+ + + + | EXTERNAL LAB: AST | Routin | 08/06/2015 | | Results for this | | | e | | | procedure are in the | | | | | | results section. | + +--------+ + + + | EXTERNAL LAB: | Routin | 08/06/2015 | | Results for this | | ALKALINE PHOSPHATASE | e | | | procedure are in the | | | | | | results section. | + +--------+ + + + | EXTERNAL LAB: | Routin | 08/06/2015 | | Results for this | | BILIRUBIN, TOTAL | e | | | procedure are in the | | | | | | results section. | + +--------+ + + + | EXTERNAL LAB: | Routin | 08/06/2015 | | Results for this | | ALBUMIN | e | | | procedure are in the | | | | | | results section. | + +--------+ + + + | EXTERNAL LAB: | Routin | 08/06/2015 | | Results for this | | PROTEIN, TOTAL | e | | | procedure are in the | | | | | | results section. | + +--------+ + + + | EXTERNAL LAB: | Routin | 08/06/2015 | | Results for this | | CALCIUM | e | | | procedure are in the | | | | | | results section. | + +--------+ + + + | EXTERNAL LAB: CARBON | Routin | 08/06/2015 | | Results for this | | DIOXIDE | e | | | procedure are in the | | | | | | results section. | + +--------+ + + + | EXTERNAL LAB: | Routin | 08/06/2015 | | Results for this | | CHLORIDE | e | | | procedure are in the | | | | | | results section. | + +--------+ + + + | EXTERNAL LAB: | Routin | 08/06/2015 | | Results for this | | POTASSIUM | e | | | procedure are in the | | | | | | results section. | + +--------+ + + + | EXTERNAL LAB: SODIUM | Routin | 08/06/2015 | | Results for this | | | e | | | procedure are in the | | | | | | results section. | + +--------+ + + + | EXTERNAL LAB: | Routin | 08/06/2015 | | Results for this | | TRIGLYCERIDES | e | | | procedure are in the | | | | | | results section. | + +--------+ + + + | EXTERNAL LAB: | Routin | 08/06/2015 | | Results for this | | CHOLESTEROL, HDL | e | | | procedure are in the | | | | | | results section. | + +--------+ + + + | EXTERNAL LAB: | Routin | 08/06/2015 | | Results for this | | CHOLESTEROL, TOTAL | e | | | procedure are in the | | | | | | results section. | + +--------+ + + + | EXTERNAL LAB: | Routin | 08/06/2015 | | Results for this | | CHOLESTEROL, LDL | e | | | procedure are in the | | | | | | results section. | + +--------+ + + + | EXTERNAL LAB: EGFR | Routin | 08/06/2015 | | Results for this | | | e | | | procedure are in the | | | | | | results section. | + +--------+ + + + | EXTERNAL LAB: | Routin | 08/06/2015 | | Results for this | | CREATININE | e | | | procedure are in the | | | | | | results section. | + +--------+ + + + | LIPID PANEL | Routin | 08/06/2015 | | Results for this | | | e | | | procedure are in the | | | | | | results section. | + +--------+ + + + | COMPREHENSIVE | Routin | 08/06/2015 | | Results for this | | METABOLIC PANEL | e | | | procedure are in the | | | | | | results section. | + +--------+ + + + documented in this encounter Results Lipid Panel (08/06/2015) + +---------+ + + + | Component | Value | Ref Range | Performed | Pathologist | | | | | At | Signature | + +---------+ + + + | VLDL | 19 | 4 - 40 | | | | Cholesterol | | | | | | Jay | | | | | + +---------+ + + + | Chol/HDL | 4.0 | 0.0 - 5.0 | | | | Ratio | | | | | + +---------+ + + + | Non HDL | 142 (A) | 0 - 130 | | | | Chol. | | | | | | (LDL+VLDL) | | | | | + +---------+ + + + + + | Specimen | + + | Blood specimen | | (specimen) | + + Comprehensive Metabolic Panel (08/06/2015) + +-------+ + + + | Component | Value | Ref Range | Performed | Pathologist | | | | | At | Signature | + +-------+ + + + | Anion Gap | 13 | 7 - 21 mmol/L | [facility] | | | | | [facility] | | | | [facility] - | | | | | | [facility]ORY | | + +-------+ + + + | Bun/Creatin | 14.4 | 6 - 28.6 | [facility] | | | ine | | | [facility] | | | | | | [facility] | | | | | | [facility] - | | | | | | LABORATORY | | + +-------+ + + + | Globulin | 2.2 | 1.8 - 3.5 | [facility] | | | | | | [facility] | | | | | | [facility] | | | | | [facility] - | | | | | | LABORATORY | | + +-------+ + + + | Albumin/Wen | 2.1 | 1.1 - 2.4 | [facility] | | | bulin Ratio | | | [facility] | | | | | | [facility] | | | | | | [facility] - | | | | | | LABORATORY | | + +-------+ + + + + + | Specimen | + + | Blood specimen | | (specimen) | + + + + + + + | Performing | Address | City/State/Zipcode | Phone Number | | Organization | | | | + + + + + | [facility] | [address] | [place] | [phone] | | [facility] | | [address], [facility] | | | - LABORATORY | | | | + + + + + External Lab: DIANE (08/06/2015) + +-------+ + + + | Component | Value | Ref Range | Performed | Pathologist | | | | | At | Signature | + +-------+ + + + | DIANE, | 16 | 6 - 23 | EXTERNAL | | | External | | | LAB | | + +-------+ + + + + + | Resulting Agency Comment | + + | [facility] | + + + +---------+ + + | Performing | Address | City/State/Zipcode | Phone Number | | Organization | | | | + +---------+ + + | EXTERNAL LAB | | | | + +---------+ + + External Lab: Glucose (08/06/2015) + +-------+ + + + | Component | Value | Ref Range | Performed | Pathologist | | | | | At | Signature | + +-------+ + + + | Glucose, | 92 | 70 - 100 | EXTERNAL | | | External | | | LAB | | + +-------+ + + + + + | Resulting Agency Comment | + + | [facility] | + + + +---------+ + + | Performing | Address | City/State/Zipcode | Phone Number | | Organization | | | | + +---------+ + + | EXTERNAL LAB | | | | + +---------+ + + External Lab: ALT (08/06/2015) + +-------+ + + + | Component | Value | Ref Range | Performed | Pathologist | | | | | At | Signature | + +-------+ + + + | ALT, | 13 | 7 - 52 | EXTERNAL | | | External | | | LAB | | + +-------+ + + + + + | Resulting Agency Comment | + + | [facility] | + + + +---------+ + + | Performing | Address | City/State/Zipcode | Phone Number | | Organization | | | | + +---------+ + + | EXTERNAL LAB | | | | + +---------+ + + External Lab: RHINA (08/06/2015) + +-------+ + + + | Component | Value | Ref Range | Performed | Pathologist | | | | | At | Signature | + +-------+ + + + | AST, | 16 | 13 - 39 | EXTERNAL | | | External | | | LAB | | + +-------+ + + + + + | Resulting Agency Comment | + + | [facility] | + + + +---------+ + + | Performing | Address | City/State/Zipcode | Phone Number | | Organization | | | | + +---------+ + + | EXTERNAL LAB | | | | + +---------+ + + External Lab: Alkaline Phosphatase (08/06/2015) + +-------+ + + + | Component | Value | Ref Range | Performed | Pathologist | | | | | At | Signature | + +-------+ + + + | ALP, | 53 | 30 - 128 | EXTERNAL | | | External | | | LAB | | + +-------+ + + + + + | Resulting Agency Comment | + + | [facility] | + + + +---------+ + + | Performing | Address | City/State/Zipcode | Phone Number | | Organization | | | | + +---------+ + + | EXTERNAL LAB | | | | + +---------+ + + External Lab: Bilirubin, Total (08/06/2015) + +-------+ + + + | Component | Value | Ref Range | Performed | Pathologist | | | | | At | Signature | + +-------+ + + + | Bilirubin, | 0.9 | 0 - 1.2 | EXTERNAL | | | Total, | | | LAB | | | External | | | | | + +-------+ + + + + + | Resulting Agency Comment | + + | [facility] | + + + +---------+ + + | Performing | Address | City/State/Zipcode | Phone Number | | Organization | | | | + +---------+ + + | EXTERNAL LAB | | | | + +---------+ + + External Lab: Albumin (08/06/2015) + +-------+ + + + | Component | Value | Ref Range | Performed | Pathologist | | | | | At | Signature | + +-------+ + + + | Albumin, | 4.7 | 3.5 - 5 | EXTERNAL | | | External | | | LAB | | + +-------+ + + + + + | Resulting Agency Comment | + + | [facility] | + + + +---------+ + + | Performing | Address | City/State/Zipcode | Phone Number | | Organization | | | | + +---------+ + + | EXTERNAL LAB | | | | + +---------+ + + External Lab: Protein, Total (08/06/2015) + +-------+ + + + | Component | Value | Ref Range | Performed | Pathologist | | | | | At | Signature | + +-------+ + + + | Protein, | 6.9 | 6 - 9 | EXTERNAL | | | Total, | | | LAB | | | External | | | | | + +-------+ + + + + + | Resulting Agency Comment | + + | [facility] | + + + +---------+ + + | Performing | Address | City/State/Zipcode | Phone Number | | Organization | | | | + +---------+ + + | EXTERNAL LAB | | | | + +---------+ + + External Lab: Calcium (08/06/2015) + +-------+ + + + | Component | Value | Ref Range | Performed | Pathologist | | | | | At | Signature | + +-------+ + + + | Calcium, | 9.3 | 8.4 - 10.2 | EXTERNAL | | | External | | | LAB | | + +-------+ + + + + + | Resulting Agency Comment | + + | [facility] | + + + +---------+ + + | Performing | Address | City/State/Zipcode | Phone Number | | Organization | | | | + +---------+ + + | EXTERNAL LAB | | | | + +---------+ + + External Lab: Carbon Dioxide (08/06/2015) + +-------+ + + + | Component [...] Comment | + + | [facility] | + + + +---------+ + + | Performing | Address | City/State/Zipcode | Phone Number | | Organization | | | | + +---------+ + + | EXTERNAL LAB | | | | + +---------+ + + External Lab: Chloride (08/06/2015) + +-------+ + + + | Component | Value | Ref Range | Performed | Pathologist | | | | | At | Signature | + +-------+ + + + | Chloride, | 107 | 95 - 112 | EXTERNAL | | | External | | | LAB | | + +-------+ + + + + + | Resulting Agency Comment | + + | [facility] | + + + +---------+ + + | Performing | Address | City/State/Zipcode | Phone Number | | Organization | | | | + +---------+ + + | EXTERNAL LAB | | | | + +---------+ + + External Lab: Potassium (08/06/2015) + +-------+ + + + | Component | Value | Ref Range | Performed | Pathologist | | | | | At | Signature | + +-------+ + + + | Potassium, | 5 | 3.6 - 5.1 | EXTERNAL | | | External | | | LAB | | + +-------+ + + + + + | Resulting Agency Comment | + + | [facility] | + + + +---------+ + + | Performing | Address | City/State/Zipcode | Phone Number | | Organization | | | | + +---------+ + + | EXTERNAL LAB | | | | + +---------+ + + External Lab: Sodium (08/06/2015) + +-------+ + + + | Component | Value | Ref Range | Performed | Pathologist | | | | | At | Signature | + +-------+ + + + | Sodium, | 142 | 132 - 143 | EXTERNAL | | | External | | | LAB | | + +-------+ + + + + + | Resulting Agency Comment | + + | [facility] | + + + +---------+ + + | Performing | Address | City/State/Zipcode | Phone Number | | Organization | | | | + +---------+ + + | EXTERNAL LAB | | | | + +---------+ + + External Lab: Triglycerides (08/06/2015) + +-------+ + + + | Component | Value | Ref Range | Performed | Pathologist | | | | | At | Signature | + +-------+ + + + | Triglycerid | 96 | 30 - 150 | EXTERNAL | | | es, | | | LAB | | | External | | | | | + +-------+ + + + + + | Specimen | + + | Blood specimen | | (specimen) | + + + + | Resulting Agency Comment | + + | [facility] | + + + +---------+ + + | Performing | Address | City/State/Zipcode | Phone Number | | Organization | | | | + +---------+ + + | EXTERNAL LAB | | | | + +---------+ + + External Lab: Cholesterol, HDL (08/06/2015) + +-------+ + + + | Component | Value | Ref Range | Performed | Pathologist | | | | | At | Signature | + +-------+ + + + | HDL | 46.7 | 40 - 99,999 | EXTERNAL | | | Cholesterol | | mg/dl | LAB | | | , External | | | | | + +-------+ + + + + + | Specimen | + + | Blood specimen | | (specimen) | + + + + | Resulting Agency Comment | + + | [facility] | + + + +---------+ + + | Performing | Address | City/State/Zipcode | Phone Number | | Organization | | | | + +---------+ + + | EXTERNAL LAB | | | | + +---------+ + + External Lab: Cholesterol, Total (08/06/2015) + +-------+ + + + | Component | Value | Ref Range | Performed | Pathologist | | | | | At | Signature | + +-------+ + + + | Cholesterol | 189 | 0 - 200 mg/dl | EXTERNAL | | | , Total, | | | LAB | | | External | | | | | + +-------+ + + + + + | Specimen | + + | Blood specimen | | (specimen) | + + + + | Resulting Agency Comment | + + | [facility] | + + + +---------+ + + | Performing | Address | City/State/Zipcode | Phone Number | | Organization | | | | + +---------+ + + | EXTERNAL LAB | | | | + +---------+ + + External Lab: Cholesterol, LDL (08/06/2015) + +---------+ + + + | Component | Value | Ref Range | Performed | Pathologist | | | | | At | Signature | + +---------+ + + + | LDL | 123 (A) | 0 - 100 | EXTERNAL [...] Comment | + + | [facility] | + + + +---------+ + + | Performing | Address | City/State/Zipcode | Phone Number | | Organization | | | | + +---------+ + + | EXTERNAL LAB | | | | + +---------+ + + External Lab: eGFR (08/06/2015) + +-------+ + + + | Component | Value | Ref Range | Performed | Pathologist | | | | | At | Signature | + +-------+ + + + | eGFR, | 70 | | EXTERNAL | | | External | | | LAB | | + +-------+ + + + + + | Specimen | + + | Blood specimen | | (specimen) | + + + + | Resulting Agency Comment | + + | [facility] | + + + +---------+ + + | Performing | Address | City/State/Zipcode | Phone Number | | Organization | | | | + +---------+ + + | EXTERNAL LAB | | | | + +---------+ + + External Lab: Creatinine (08/06/2015) + +-------+ + + + | Component | Value | Ref Range | Performed | Pathologist | | | | | At | Signature | + +-------+ + + + | Creatinine, | 1.11 | 0.7 - 1.33 | EXTERNAL | | | External | | | LAB | | + +-------+ + + + + + | Specimen | + + | Blood specimen | | (specimen) | + + + + | Resulting Agency Comment | + + | [facility] | + + + +---------+ + + | Performing | Address | City/State/Zipcode | Phone Number | | Organization | | | | + +---------+ + + | EXTERNAL LAB | | | | + +---------+ + + documented in this encounter Visit Diagnoses Not on filedocumented in this encounter"
--- OUTSIDE RECORDS SUMMARY | ~2019-10-28 | XMS | Encounter Summary ---
Demographics + + + | Address | [address] | | | [place] [address] | + + + | Home Phone | | + + + | Preferred Language | Unknown | + + + | Marital Status | Single | + + + | Cheondoism Affiliation | NON | + + + | Race | White | + + + | Ethnic Group | Not or | + + + Author + + + | Author | [facility] | + + + | Organization | [facility] | + + + | Address | Unknown | + + + | Phone | Unavailable | + + + Support + + +---------+---------+ | Name | Relationship | Address | Phone | + + +---------+---------+ | Anayeli [place] | ECON | Unknown | nophone | + + +---------+---------+ Care Team Providers + +------+ + | Care Utilization Review Nurse Name | Role | Phone | + +------+ + | Unknown | PCP | Unavailable | + +------+ + Encounter Details +--------+ + + + + | Date | Type | Department | Care Team | Description | +--------+ + + + + | 08/19/ | Hospital | Registration [id number] | Mamie Valenzuela MD | | | 2006 | Activity | [facility] | [facility] | | | | | Rd Mailcode: [id number] | [facility] [address] | | | | | [place], [place] | [facility] | | | | | [address] | [address] [place], [place] | | | | | [phone] | [address] | | | | | | | [...] as of this encounter Plan of Treatment + +---------+--------+ + + | Name | Type | Priori | Associated Diagnoses | Date/Time | | | | ty | | | + +---------+--------+ + + | HAND 3 VIEWS RIGHT | Imaging | Urgent | | 08/20/2006 12:20 AM | | | | | | PST | + +---------+--------+ + + documented as of this encounter Procedures + +--------+ + + + | Procedure Name | Priori | Date/Time | Associated Diagnosis | Comments | | | ty | | | | + +--------+ + + + | X-RAY HAND 2 VIEWS | Urgent | 08/20/2006 | | Results for this | | RIGHT | | 12:36 AM | | procedure are in the | | | | PST | | results section. | + +--------+ + + + documented in this encounter Results HAND 2 VIEWS RIGHT (08/20/2006 12:36 AM PST) + + + + + + | Component | Value | Ref Range | Performed | Pathologist | | | | | At | Signature | + + + + + + | HAND 2 | Radiologist 1: ANNA, | | | | | VIEWS RIGHT | MD LY-Radiologist 2: | | | | | | CARMEN WEBBERAM: | | | | | | PA and lateral views | | | | | | of the hand. COMPARISON: | | | | | | None HISTORY: Hand | | | | | | injury. FINDINGS: | | | | | | There is amputation of | | | | | | the distal tuft of the | | | | | | distalphalanx of the | | | | | | index finger with | | | | | | several small | | | | | | radiopaqueopacities | | | | | | within the distal end of | | | | | | the soft tissue stump. | | | | | | Softtissue opacities | | | | | | are also noted over the | | | | | | tip of the ring | | | | | | fingerwith irregular | | | | | | lucency extending | | | | | | through the distal tuft. | | | | | | Similarlucency and | | | | | | gas within the soft | | | | | | tissues are noted over | | | | | | the distalphalanx and | | | | | | tuft of the little | | | | | | finger. There is soft | | | | | | tissue gasthe distal | | | | | | aspect of the thumb. A | | | | | | probable nondisplaced | | | | | | obliquefracture through | | | | | | the ulnar aspect of the | | | | | | proximal distal | | | | | | phalanxis noted. | | | | | | IMPRESSION: 1. | | | | | | Fractures of the | | | | | | distal phalanges of the | | | | | | thumb, ring andlittle | | | | | | finger. 2. Amputation | | | | | | of the distal tuft and | | | | | | finger tip of the | | | | | | indexfinger. | | | | + + + + + + + + | Specimen | + + | | + + + +---------+ + + | Performing | Address | City/State/Zipcode | Phone Number | | Organization | | | | + +---------+ + + | [facility] DEPARTMENT OF | | | | | RADIOLOGY | | | | + +---------+ + + documented in this encounter Visit Diagnoses Not on filedocumented in this encounter"
--- OUTSIDE RECORDS SUMMARY | ~2019-10-28 | XMS | Clinical Summary ---
Demographics + + + | Address | [address] | | | [place] [address] | + + + | Home Phone | | + + + | Preferred Language | Unknown | + + + | Marital Status | Single | + + + | Hoahaoism Affiliation | NON | + + + [...] Team Providers + +------+ + | Care Machinist Name | Role | Phone | + +------+ + | Unknown | PCP | Unavailable | + +------+ + Source Comments [facility] is fully live on [facility] Allergies No Known Allergies Medications + + [...] | | | + +--------+ +--------+-------+---------+--------+ | 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
--- OUTSIDE RECORDS SUMMARY | ~2019-10-28 | XMS | Encounter Summary ---
Demographics + + + | Address | [address] | | | [place] [address] | + + + | Home Phone | | + + + | Preferred Language | Unknown | + + + | Marital Status | Legally | + + + | Jewish Affiliation | 1013 | + + + | Race | Unknown | + + + | Ethnic Group | Unknown | + + + Author + + + | Author | [facility] | | | and [place] | + + + | Organization | [facility] | | | and [...] | | | | | [place] [address] | | + + + + + Care Team Providers + +------+ + | Care Sponge Clipper Name | Role | Phone | + [...] | | | Chest pain, | MD Nasrin | Medicine | | | | | unspecified | [address] | [address] | | | | | chest pain | [address] | [place], | | | | | type | [place], | [place] | | | | | Procedures | [place] [address] | [address] | | | | | [place] Nuclear | Phone: | Phone: | | | | | Stress Test | [phone] | [phone] | | | | | (Exercise) | Fax: | Fax: | | | | | CHG | [phone] | [phone] | | | | | MYOCARDIAL | | | | | | | SPECT | | | | | | | MULTIPLE | | | | | | | STUDIES NE | | | | | | | CV STRS TST | | | | | | | XERS&/OR RX | | | | | | | CONT ECG W/O | | | | | | | I&R NE | | | | | | | CARDIAC | | | | | | | STRESS | | | | | | | TST,INTERP/R | | | | | | | EPT ONLY | | | +--------+--------+ + + + + Reason for Visit Diagnostic/Screening (Routine) +--------+--------+ + + + + | Status | Reason | Specialty | Diagnoses / | Referred By | Referred To | | | | | Procedures | Contact | Contact | +--------+--------+ + + + + | Closed | | Radiology | Diagnoses | Donna, | [facility] | | | | | Chest pain, | MD Nasrin | Medicine | | | | | unspecified | [address] | [address] | | | | | chest pain | [address] | [place], | | | | | type | [place], | [place] | | | | | Procedures | [place] [address] | [address] | | | | | [place] Nuclear | Phone: | Phone: | | | | | Stress Test | [phone] | [phone] | | | | | (Exercise) | Fax: | Fax: | | | | | CHG | [phone] | [phone] | | | | | MYOCARDIAL | | | | | | | SPECT | | | | | | | MULTIPLE | | | | | | | STUDIES NE | | | | | | | CV STRS TST | | | | | | | XERS&/OR RX | | | | | | | CONT ECG W/O | | | | | | | I&R NE | | | | | | | CARDIAC | | | | | | | STRESS | | | | | | | TST,INTERP/R | | | | | | | EPT ONLY | | | +--------+--------+ + + + + Encounter Details +--------+ + + + + | Date | Type | Department | Care Team | Description | +--------+ + + + + | 06/06/ | Hospital | [facility] | Nasrin Thompson, | Chest pain, | | 2015 | Encounter | MED CTR NUCLEAR | MD [address] | unspecified chest | | | | MEDICINE [address] [place], | pain type | | | | [address] [place], | [place] [address] | | | | | [place] [address] | [phone] | | | | | [phone] | | | +--------+ + + + [...] + + documented as of this encounter Medications at Time of Discharge + + + +---------+--------+ + | Medication | Sig | Dispensed | Refills | Start | End Date | | | | | | Date | | + + + +---------+--------+ + | aspirin 325 mg | Take 325 mg by mouth | | 0 | | | | tablet | Daily. | | | | 7 | + + + +---------+--------+ + documented as of this encounter Plan of Treatment Not on filedocumented as of this encounter Procedures + +--------+ + + + | Procedure Name | Priori | Date/Time | Associated Diagnosis | Comments | | | ty | | | | + +--------+ + + + | [place] NUCLEAR STRESS | Routin | 06/06/2015 | Chest pain, | Results for this | | TEST (EXERCISE) | e | 12:45 PM | unspecified chest | procedure are in the | | | | PST | pain type | results section. | + +--------+ + [...] the procedure. 4. There is no | [facility] | | arrhythmia during procedure. 5. Exercise tolerance is | - IMAGING | | Above average for age. 6. Normal exercise sestamibi | | | myocardial perfusion imaging study. normal left ventricular size, | | | wall thickness and motion. Preserved left ventricular systolic | | | function. LVEF by gated SPECT is 54 %. Signed by: | | | Nasrin Thompson MD [facility] 06/06/2015, 12:48 | | + + + + + + | Narrative | Performed At | + + + | NUCLEAR MEDICINE STRESS TEST REPORT | [facility] | | Patient Name: Sukumar Pennington Study Date: 06/06/2015 | [facility] | | Primary Care Provider: Nikolas Luis : | [facility] | | 1965 Age: 49 y.o. Gender: [...] | + + + + + | [address] | [address] | [place], [place] | [phone] | | [facility] | | [address] | | | - IMAGING | | | | + + + + + documented in this encounter Visit Diagnoses + + | Diagnosis | + + | Chest pain, unspecified chest pain type | + + documented in this encounter Administered Medications + +--------+ + +------+------+ | Medication Order | MAR | Action | Dose | Rate | Site | | | Action | Date | | | | + +--------+ + +------+------+ | technetium TC-99M sestamibi | Given | 06/06/20 | 10.3 | | | | (CARDIOLITE) injection 9 | | 15 7:40 | -millicu | | | | millicurie 9 -millicurie, | | AM PST | regina | | | | Intravenous, ONCE PRN, Other, | | | | | | | Starting 06/06/15 at 0740, | | | | | | | For 1 dose, Nuclear Medicine | | | | | | + +--------+ + +------+------+ +---+---+ | | | +---+---+ documented in this encounter"
--- OUTSIDE RECORDS SUMMARY | ~2019-10-28 | XMS | Encounter Summary ---
Demographics + + + | Address | [address] | | | [place] [address] | + + + | Home Phone | | + + + | Preferred Language | Unknown | + + + | Marital Status | Legally | + + + | Yarsani Affiliation | 1013 | + + + | Race | Unknown | + + + | Ethnic Group | Unknown | + + + Author + + + | Author | [facility] | | | and [place] | + + + | Organization | [facility] | | | and [...] | | | | | [place] [address] | | + + + + + Care Team Providers + +------+ + | Care Ergonomist Name | Role | Phone | + [...] [address] | | | | | [place], | [place], | | | | | [place] [address] | [place] [address] | | | | | [phone] | [phone] | | | | | | | [...] Comment | + + | [facility] | + + + +---------+ + + [...] Comment | + + | [facility] | + + + +---------+ + + [...] Comment | + + | [facility] | + + + +---------+ + + [...] Comment | + + | [facility] | + + + +---------+ + + [...] Comment | + + | [facility] | + + + +---------+ + + [...] Comment | + + | [facility] | + + + +---------+ + + [...] Comment | + + | [facility] | + + + +---------+ + + [...] Comment | + + | [facility] | + + + +---------+ + + [...] Comment | + + | [facility] | + + + +---------+ + + [...] Comment | + + | [facility] | + + + +---------+ + + [...]
--- OUTSIDE RECORDS SUMMARY | ~2019-10-28 | XMS | Encounter Summary ---
Demographics + + + | Address | [address] | | | [place] [address] | + + + | Home Phone | | + + + | Preferred Language | Unknown | + + + | Marital Status | Legally | + + + | Confucianism Affiliation | 1013 | + + + | Race | Unknown | + + + | Ethnic Group | Unknown | + + + Author + + + | Author | [facility] | | | and [place] | + + + | Organization | [facility] | | | and [place] [...] | | | | | [place] [address] | | + + + + + Care Team Providers + +------+ + | Care Filing Clerk Name | Role | Phone | + +------+ + | Nikolas Luis MD | PCP | | + +------+ + Reason for Visit Diagnostic/Screening (Routine) +--------+--------+ [...] unspecified | [address] | [address] | | | | | chest pain | [address] | [place], | | | | | type | [place], | [place] | | | | | Procedures | [place] [address] | [address] | | | | | [place] Nuclear | Phone: | Phone: | | | | | Stress Test | [phone] | [phone] | | | | | (Exercise) | Fax: | Fax: | | | | | CHG | [phone] | [phone] | | | | | MYOCARDIAL | | | | | | | SPECT | | | | | | | MULTIPLE | | | | | | | STUDIES [place] | | | | | | | CV STRS TST | | | | | | | XERS&/OR RX | | | | | | | CONT ECG W/O | | | | | | | I&R [place] | | | | | | | [...] + + | 06/06/ | Hospital | [facility] | Nasrin Thompson, | | | 2015 | Encounter | MED CTR NUCLEAR | MD [address] | | | | | MEDICINE [address] [place], | | | | | [place], | [place] [address] | | | | | [address] | [phone] | | | | | [phone] | | | +--------+ + + + [...] Visit Diagnoses Not on filedocumented in this encounter Administered Medications + +--------+ + +------+------+ | Medication Order | MAR | Action | Dose | Rate | Site | | | Action | Date | | | | + +--------+ + +------+------+ | technetium TC-99M sestamibi | Given | 06/06/20 | 30.6 | | | | (CARDIOLITE) injection 30 | | 15 12:31 | -millicu | | | | millicurie 30 -millicurie, | | PM PST | regina | | | | Intravenous, ONCE PRN, Other, | | | | | | | Starting 06/06/15 at 1230, | | | | | | | For 1 dose, Nuclear Medicine | | | | | | + +--------+ + +------+------+ +---+---+ | | | +---+---+ documented in this encounter"
--- OUTSIDE RECORDS SUMMARY | ~2019-10-28 | XMS | Encounter Summary ---
Demographics + + + | Address | [address] | | | [place] [address] | + + + | Home Phone | | + + + | Preferred Language | Unknown | + + + | Marital Status | Legally | + + + | Restoration Affiliation | 1013 | + + + | Race | Unknown | + + + | Ethnic Group | Unknown | + + + Author + + + | Author | [facility] | | | and [place] | + + + | Organization | [facility] | | | and [place] [...] | | | | | [place] [address] | | + + + + + Care Team Providers + +------+ + | Care Supervisor Fertilizer Name | Role | Phone | + [...] + + | 08/14/ | Office | [facility] | Ben, | Chest pain in adult | | 2016 | Visit | CARDIOLOGY [address] | [address] | (Primary Dx) | | | | [place], | [place], | | | | | [place] [address] | [place] [address] | | | | | [phone] | | | | | | | [...] tablet Take 325 mg by mouth Daily. [place]-3 Fatty Acids (FISH OIL) 1200 MG CAPS [...] PLT 144 05/24/2015 I reviewed [facility] for office visit on 06/25/2015. ASSESSMENT: 1. [...] to co me into the ED of [facility] where all the original blood work was [...] He is in a class I of Major Heart Association functional class. There is no [...] this chart may have been created with [employer] voice recognition software. Occasi onal wrong-word or [...]
--- OUTSIDE RECORDS SUMMARY | ~2019-10-28 | XMS | Encounter Summary ---
Demographics + + + | Address | [address] | | | [place] [address] | + + + | Home Phone | | + + + | Preferred Language | Unknown | + + + | Marital Status | Single | + + + | Quaker Affiliation | NON | + + + | Race | White | + + + | Ethnic Group | Not or | + + + Author + + + | Author | [facility] | + + + | Organization | [facility] | + + + | Address | Unknown | + + + | Phone | Unavailable | + + + Support + + +---------+---------+ | Name | Relationship | Address | Phone | + + +---------+---------+ | Anayeli Pennington | ECON | Unknown | nophone | + + +---------+---------+ Care Team Providers + +------+ + | Care Grants Director Name | Role | Phone | + +------+ + PCP | Unavailable | + +------+ + Encounter Details +--------+ + + + + | Date | Type | Department | Care Team | Description | +--------+ + + + + | 08/20/ | Procedure - | [facility] | Record, Operation | Operative Report | | 2006 | | [place] [facility] [address] | | | | | Transcribed | [address] | | | | | | Mailcode: [place] | | | | | | [facility] | | | | | | Healing, [address] | | | | | | [place], [place] | | | | | | [address] | | | | | | [phone] | | | +--------+ + + + [...] | 08/20/2006 12:00 AM PST | | [id number] | | [id number] [facility] [id number] | | | | Date: 08/20/2006 | | | | Attending Surgeon: Dave Cisneros M.D. | | | | Cdl Bulk Driver(s): Abelardo Dutta M.D. | | | | [...] hand. He was initially evaluated in [facility] | | [place] and transferred to [facility] for further care. He has several open [...] | | GIULIA / GWYN | | [id number] / [id number] / [id number] / | | | | | | | | | | | | Electronically signed by Dave Cisneros 08-30-2006 04:18:21 PM | | | | | + + documented in this encounter Visit Diagnoses Not on filedocumented in this encounter"
--- OUTSIDE RECORDS SUMMARY | ~2019-10-28 | XMS | Encounter Summary ---
Demographics + + + | Address | [address] | | | [place] [address] | + + + | Home Phone | | + + + | Preferred Language | Unknown | + + + | Marital Status | Legally | + + + | Buddhism Affiliation | 1013 | + + + | Race | Unknown | + + + | Ethnic Group | Unknown | + + + Author + + + | Author | [facility] | | | and [place] | + + + | Organization | [facility] | | | and [place] [...] | | | | | [place] [address] | | + + + + + Care Team Providers + +------+ + | Care Cosmetic Chemist Name | Role | Phone | + [...] unspecified | [address] | [address] | | | | | chest pain | [address] | [place], | | | | | type | [place], | [place] | | | | | Procedures | [place] [address] | [address] | | | | | [place] Nuclear | Phone: | Phone: | | | | | Stress Test | [phone] | [phone] | | | | | (Exercise) | Fax: | Fax: | | | | | CHG | [phone] | [phone] | | | | | MYOCARDIAL | | | | | | | SPECT | | | | | | | MULTIPLE | | | | | | | STUDIES [place] | | | | | | | CV STRS TST | | | | | | | XERS&/OR RX | | | | | | | CONT ECG W/O | | | | | | | I&R [place] | | | | | | | [...] + + | 06/06/ | Hospital | [facility] | Nasrin Thompson, | | | 2015 | Encounter | MED CTR NUCLEAR | MD [address] | | | | | MEDICINE [address] [place], | | | | | [place], | [place] [address] | | | | | [address] | [phone] | | | | | [phone] | | | +--------+ + + + [...]
--- OUTSIDE RECORDS SUMMARY | ~2019-10-28 | XMS | Encounter Summary ---
Demographics + + + | Address | [address] | | | [place] [address] | + + + | Home Phone | | + + + | Preferred Language | Unknown | + + + | Marital Status | Legally | + + + | Advent Affiliation | 1013 | + + + | Race | Unknown | + + + | Ethnic Group | Unknown | + + + Author + + + | Author | [facility] | | | and [place] | + + + | Organization | [facility] | | | and [...] | | | | | [place] [address] | | + + + + + Care Team Providers + +------+ + | Care Department Of Mathematics Chair Name | Role | Phone | + +------+ + | Boy Moran MD | PCP | | + +------+ + Reason for Visit +--------+ + | Reason | Comments | +--------+ + | Other | | +--------+ + Encounter Details +--------+ + + + + | Date | Type | Department | Care Team | Description | +--------+ + + + + | 05/08/ | Telephone | [facility] | Aleksander Dang, | Other | | 2019 | | [address] | MD [address] | | | | | [place], [place] | [place] | | | | | [address] | [address] | | | | | [phone] | | | +--------+ + + + [...]
--- OUTSIDE RECORDS SUMMARY | ~2019-10-28 | XMS | Encounter Summary ---
Demographics + + + | Address | [address] | | | [place] [address] | + + + | Home Phone | | + + + | Preferred Language | Unknown | + + + | Marital Status | Single | + + + | Catholic Affiliation | NON | + + + | Race | White | + + + | Ethnic Group | Not or | + + + Author + + + | Author | [facility] | + + + | Organization | [facility] | + + + | Address | Unknown | + + + | Phone | Unavailable | + + + Support + + +---------+---------+ | Name | Relationship | Address | Phone | + + +---------+---------+ | Anayeli [place] | ECON | Unknown | nophone | + + +---------+---------+ Care Team Providers + +------+ + | Care Melter Supervisor Oxygen Furnace Name | Role | Phone | + +------+ + PCP | Unavailable | + +------+ + Encounter Details +--------+ + + + + | Date | Type | Department | Care Team | Description | +--------+ + + + + | 08/20/ | ED Progress | Emergency Medicine | Report, Emergency | ED Progress Note | | 2006 | | [address] [facility] | Services | | | | Note-Transc | [address] | | | | | [place] | [place], [place] | | | | | | [address] | | | +--------+ + + + [...]
--- OUTSIDE RECORDS SUMMARY | ~2019-10-28 | XMS | Encounter Summary ---
Demographics + + + | Address | [address] | | | [place] [address] | + + + | Home Phone | | + + + | Preferred Language | Unknown | + + + | Marital Status | Single | + + + | Advent Affiliation | NON | + + + | Race | White | + + + | Ethnic Group | Not or | + + + Author + + + | Author | [facility] | + + + | Organization | [facility] | + + + | Address | Unknown | + + + | Phone | Unavailable | + + + Support + + +---------+---------+ | Name | Relationship | Address | Phone | + + +---------+---------+ | Anayeli Pennington | ECON | Unknown | nophone | + + +---------+---------+ Care Team Providers + +------+ + | Care Nurses Assistant Name | Role | Phone | + +------+ + PCP | Unavailable | + +------+ + Encounter Details +--------+ + + + + | Date | Type | Department | Care Team | Description | +--------+ + + + + | 08/20/ | ED Progress | Emergency Medicine | Report, Emergency | ED Progress Note | | 2006 | | [address] [facility] | Services | | | | Note-Transc | [address] | | | | | [place] | [place], [place] | | | | | | [address] | | | +--------+ + + + [...]
--- OUTSIDE RECORDS SUMMARY | ~2019-10-28 | XMS | Encounter Summary ---
Demographics + + + | Address | [address] | | | [place] [address] | + + + | Home Phone | | + + + | Preferred Language | Unknown | + + + | Marital Status | Legally | + + + | Restorationism Affiliation | 1013 | + + + | Race | Unknown | + + + | Ethnic Group | Unknown | + + + Author + + + | Author | [facility] | | | and [place] | + + + | Organization | [facility] | | | and [place] | + + + | Address | Unknown | + + + | Phone | Unavailable | + + + Support + + + + + | Name | Relationship | Address | Phone | + + + + + | Nikia Borges | ECON | [address] | | | | | [place] [address] | | + + + + + Care Team Providers + +------+ + | Care Landscaping And Groundskeeping Laborer Name | Role | Phone | + +------+ + | Nikolas Luis MD | PCP | | + +------+ + Encounter Details +--------+ + + + + | Date | Type | Department | Care Team | Description | +--------+ + + + + | 04/22/ | Orders Only | [facility] [place] | Ben, | Hyperlipidemia, | | 2017 | | CARDIOLOGY [address] | [address] | mixed (Primary Dx); | | | | [place], | [place], | Chest pain in adult; | | | | [place] [address] | [place] [address] | Palpitations | | | | [phone] | [phone] | | | | | | | [...] of this encounter Plan of Treatment + +------+--------+ + + | Name | Type | Priori | Associated Diagnoses | Order Schedule | | | | ty | | | + +------+--------+ + + | Lipid Panel | Lab | Routin | Hyperlipidemia, | Expected: | | | | e | mixed Chest pain in | 04/22/2017, Expires: | | | | | adult Palpitations | 04/22/2018 | + +------+--------+ + + | Comprehensive | Lab | Routin | Hyperlipidemia, | Expected: | | Metabolic Panel | | e | mixed Chest pain in | 04/22/2017, Expires: | | | | | adult Palpitations | 04/22/2018 | + +------+--------+ + + documented as of this encounter Visit Diagnoses + + | Diagnosis | + + | Hyperlipidemia, mixed - Primary Mixed hyperlipidemia | + + | Chest pain in adult | + + | Palpitations | + + documented in this encounter"
--- OUTSIDE RECORDS SUMMARY | ~2019-10-28 | XMS | Encounter Summary ---
Demographics + + + | Address | [address] | | | [place] [address] | + + + | Home Phone | | + + + | Preferred Language | Unknown | + + + | Marital Status | Single | + + + | Pentecostal Affiliation | NON | + + + | Race | White | + + + | Ethnic Group | Not or | + + + Author + + + | Author | [facility] | + + + | Organization | [facility] | + + + | Address | Unknown | + + + | Phone | Unavailable | + + + Support + + +---------+---------+ | Name | Relationship | Address | Phone | + + +---------+---------+ | Anayeli Pennington | ECON | Unknown | nophone | + + +---------+---------+ Care Team Providers + +------+ + | Care Questioned Documents Examiner Name | Role | Phone | + +------+ + PCP | Unavailable | + +------+ + Reason for Visit + + + | Reason | Comments | + + + | Removal of suture | | + + + Encounter Details +--------+ + + + + | Date | Type | Department | Care Team | Description | +--------+ + + + + | 09/08/ | Telephone | Plastic and | Dave Cisneros, | Removal of suture | | 2006 | | Reconstructive | ,PhD [address] | | | | | Surgery at [facility] [address] [place], [place] | | | | | [address] | [address] | | | | | Mailcode: [facility] | [phone] | | | | | [facility] | | | | | | and Healing, | | | | | | Building | | | | | | [place], [place] | | | | | | [address] | | | | | | [phone] | | | +--------+ + + + [...]
--- OUTSIDE RECORDS SUMMARY | ~2019-10-28 | XMS | Encounter Summary ---
Demographics + + + | Address | [address] | | | [place] [address] | + + + | Home Phone | | + + + | Preferred Language | Unknown | + + + | Marital Status | Legally | + + + | Denominational Affiliation | 1013 | + + + | Race | Unknown | + + + | Ethnic Group | Unknown | + + + Author + + + | Author | [facility] | | | and [place] | + + + | Organization | [facility] | | | and [...] | | | | | [place] [address] | | + + + + + Care Team Providers + +------+ + | Care Demurrage Clerk Name | Role | Phone | + +------+ + | Nikolas Luis MD | PCP | | + +------+ + Reason for Visit +--------+ + | Reason | Comments | +--------+ + | Other | plan of care | +--------+ + Encounter Details +--------+ + + + + | Date | Type | Department | Care Team | Description | +--------+ + + + + | 09/12/ | Telephone | [facility] | Ben, | Other (plan of care) | | 2017 | | CARDIOLOGY [address] | [address] | | | | | [place], | [place], | | | | | [place] [address] | [place] [address] | | | | | [phone] | [phone] | | | | | | | [...]
--- OUTSIDE RECORDS SUMMARY | ~2019-10-28 | XMS | Encounter Summary ---
Demographics + + + | Address | [address] | | | [place] [address] | + + + | Home Phone | | + + + | Preferred Language | Unknown | + + + | Marital Status | Legally | + + + | Pentecostal Affiliation | 1013 | + + + | Race | Unknown | + + + | Ethnic Group | Unknown | + + + Author + + + | Author | [facility] | | | and [place] | + + + | Organization | [facility] | | | and [place] | + + + | Address | Unknown | + + + | Phone | Unavailable | + + + Support + + + + + | Name | Relationship | Address | Phone | + + + + + | Nikia Borges | ECON | [address] | | | | | [place] [address] | | + + + + + Care Team Providers + +------+ + | Care Cna Ltc Name | Role | Phone | + [...] [address] | | | | | [place], | [place], | | | | | [place] [address] | [place] [address] | | | | | [phone] | | | | | | | [...]
--- OUTSIDE RECORDS SUMMARY | ~2019-10-28 | XMS | Encounter Summary ---
Demographics + + + | Address | [address] | | | [place] [address] | + + + | Home Phone | | + + + | Preferred Language | Unknown | + + + | Marital Status | Legally | + + + | Anglican Affiliation | 1013 | + + + | Race | Unknown | + + + | Ethnic Group | Unknown | + + + Author + + + | Author | [facility] | | | and [place] | + + + | Organization | [facility] | | | and [...] | | | | | [place] [address] | | + + + + + Care Team Providers + +------+ + | Care Forestry Faculty Member Name | Role | Phone | + [...] | +--------+ + + + + | 09/17/ | Telephone | [facility] | Ben, | Appointment | | 2015 | | CARDIOLOGY [address] | | | | | [place], | [place], | | | | | [place] [address] | [place] [address] | | | | | [phone] | [phone] | | | | | | | [...]
--- OUTSIDE RECORDS SUMMARY | ~2019-10-28 | XMS | Encounter Summary ---
Demographics + + + | Address | [address] | | | [place] [address] | + + + | Home Phone | | + + + | Preferred Language | Unknown | + + + | Marital Status | Single | + + + | Anabaptist Affiliation | NON | + + + | Race | White | + + + | Ethnic Group | Not or | + + + Author + + + | Author | [facility] | + + + | Organization | [facility] | + + + | Address | Unknown | + + + | Phone | Unavailable | + + + Support + + +---------+---------+ | Name | Relationship | Address | Phone | + + +---------+---------+ | Anayeli Pennington | ECON | Unknown | nophone | + + +---------+---------+ Care Team Providers + +------+ + | Care Program Production Specialist Name | Role | Phone | + +------+ + | Unknown | PCP | Unavailable | + +------+ + Encounter Details +--------+ + + + + | Date | Type | Department | Care Team | Description | +--------+ + + + + | 08/19/ | Hospital | Registration 3181 | Mamie Valenzuela MD | | | 2006 | Activity | [facility] | [facility] | | | | | Rd Mailcode: [id number] | [facility] [address] | | | | | [place], [place] | [facility] | | | | | [address] | [address] [place], [place] | | | | | [phone] | [address] | | | | | [...] | | + +---------+ + + | [facility] DEPARTMENT OF | | | | | RADIOLOGY | | | | + +---------+ + + documented in this encounter Visit Diagnoses Not on filedocumented in this encounter"
--- OUTSIDE RECORDS SUMMARY | ~2019-10-28 | XMS | Encounter Summary ---
Demographics + + + | Address | [address] | | | [place] [address] | + + + | Home Phone | | + + + | Preferred Language | Unknown | + + + | Marital Status | Legally | + + + | Rastafari Affiliation | 1013 | + + + | Race | Unknown | + + + | Ethnic Group | Unknown | + + + Author + + + | Author | [facility] | | | and [place] | + + + | Organization | [facility] | | | and [place] [...] | | | | | [place] [address] | | + + + + + Care Team Providers + +------+ + | Care Chairman And Ceo Name | Role | Phone | + [...] | | | | ANKIT LEVINE | [place] [address] | | | | | [place] [address] | | | | | | [phone] | | | +--------+ + + + [...]
--- OUTSIDE RECORDS SUMMARY | ~2019-10-28 | XMS | Encounter Summary ---
Demographics + + + | Address | [address] | | | [place] [address] | + + + | Home Phone [...] Author | [facility] | | | and [place] | + + + | Organization | [facility] | | | and [place] [...] | | | | | [place] [address] | | + + + + + Care Team Providers + +------+ + | Care Machine Farmworker Name | Role | Phone | + +------+ + | Boy Rodriguez MD | PCP | | + +------+ + Reason for Visit + + + | Reason | Comments | + + + | Prostate Cancer | | + + + Evaluate & Treat (Routine) + +--------+ + + + + | Status | Reason | Specialty | Diagnoses / | Referred By | Referred To | | | | | Procedures | Contact | Contact | + +--------+ + + + + | Authorized | | Urology | Diagnoses | Dean, | Laurence, | | | | | NEW/ | MD Boy | Aleksander Turcios MD | | | | | PROSTATE | [address] | | | | | CANCER/ | [place] | [place] | | | | | [place] | [address] | [place] | | | | | Procedures | [place], | [address] Phone: | | | | | NEW PATIENT | [place] [address] | [phone] | | | | | | Phone: | Fax: | | | | | | [phone] | [phone] | | | | | | Fax: | | | | | | | [phone] | | + +--------+ + + + + Encounter Details +--------+---------+ + + + | Date | Type | Department | Care Team | Description | +--------+---------+ + + + | 02/28/ | Office | [facility] | Aleksander Dang A, | Prostate cancer | | 2019 | Visit | [address] | MD [address] | (FORMERLY [facility]) (Primary Dx) | | | | [place], [place] | [place] | | | | | [address] | [address] | | | | | [phone] | | | +--------+---------+ + + + [...] in this encounter Patient Instructions Patient Instructions Aleksander Dang MD - 02/28/2019 9:30 AM PDTFormatting of this note m ight be different from the original. Preparation for transrectal ultrasound-guided needle biopsies of the prostate: Preparation consists of: 1. No aspirin or blood thinners for one-week prior to the prostate biopsy. 2. Use one Fleets enema (available [id number] at any drug store without prescription ) approximately 2 hours before the prostate biopsy. 3. Take one Cipro antibiotic tablet one hour prior to the prostate biopsy. You may eat and drink prior to the procedure. It is not necessary to fast. If you have any questions about this procedure, or the preparation, please call ALEJANDRO Humphries, at [phone]. Expect to see blood in the urine and blood in the stool for several days following this pro cedure. You may also see blood in the ejaculate for several weeks following this procedure. Transrectal Ultrasound and Biopsy A transrectal ultrasound is an imaging test. It uses sound waves to create pictures of a ma n s prostate gland.Your prostate gland is in front of your rectum. For this test, a spec ial probe (transducer) is placed directly into your rectum.During the test, tissue samples (a biopsy) may also be taken. The test is done by a specially trained technologist called a student recruiter. Getting ready foryour test You may be asked to clear your bowel before the test. This may be done by injecting liqu id into your rectum (an enema). Or it can be done by drinking a special liquid. You may be asked not to eat or drink anything after midnight the night before the test. Tell your healthcare provider about any medicines, herbs, or supplements you are taking. This includes any dbpv-ftk-rtzsoxn medicines such as aspirin or ibuprofen.You might need to stop taking some medicines for a week or so before the test. Answer any questions your healthcare provider hasabout your medical history. This will help tailor the test to your health needs. During your test You may be asked to change into a gown. You will then lie on your side on an exam table, with your knees bent. The test is done with a handheld probe. This is a short, slender arlin. It has a sterile, disposable cover on it. It is also greased (lubricated) with some gel. It is then gently bartolome konstantin inside your rectum. You will feel pressure from the probe. If you feel pain, let your healthcare provider kn ow. If a biopsy is needed,you might take medicine before the procedure to make you sleepy. Thetest is done using a small probe with a very tiny needle on the end. This needle enter s your prostateseveral timesand removestiny samples of tissue. These samples are then sent to a lab to be examined.Any mild pain from the biopsy is usually minor. After your test Before leaving, you may need to wait for a short time while the images are reviewed. In mos t cases, you can go back to your normal routine after the test. If you had a biopsyand too k medicine to make you sleepy, you may need to wait until it has worn off before you can go home.You might see some blood in your urine, sperm, or stool for a day or so. This is norm al. Your healthcare provider will let you knowwhenyour test results are ready. In some cases, a diagnosis can t be made from the tissue sample that was taken. If this h appens, your healthcare provider will talk with you about whether you need another biopsy. O r you may need a different procedure. When to call your healthcare provider Call your healthcare provider if you have: Very bloody urine or stool A fever lasting 24 to 48 hours Any other symptoms that your healthcare provider asks you to report, based on your healt h Date Last Reviewed: 10/25/201619994576-0470 [employer]. [address] [place] [id number]. All righ ts reserved. This information is not intended as a substitute for professional medical care. Always follow your healthcare professional's instructions. documented in this encounter Progress Notes Aleksander Dang MD - 02/28/2019 9:30 AM PDTFormatting of this note might be different fro m the original. HPI Sukumar Pennington is a 53 y.o. male referred by Boy Rodriguez MD Today, 02/28/2019, Sukumar presents for evaluation for prostate cancer. Sukumar has history of stage T2a, Nx, Mx GS 6 adenocarcinoma of the prostate. He underwent a prostate biopsy in January [address] Ruby. This biopsy was reportedly negative. PSA was 2.12 in November 2008, 2.65 in March 2011, and 3.[address] Pinon detected fullness of the right side of his prostate gland and a firm 5 mm right inferior nodule, prompting a prostate biopsy 07/20/2017 measuring at 31 cc prostate, and naila vering Edgemoor grade 3+3 = 6 adenocarcinoma in 1% of the total length of course submitted fr om the left mid peripheral zone. Left transition zone course reported JORDAN. He favored proton radiotherapy, but his insurance would not cover this treatment. Dr. Nicky sexton subsequently recommended [facility] in [place], but the patient never presented for this treatment. He states that he once again recently attempted to determine if [facility] was now covered by his insurance, but he states that he simply got the "run around." He reports his PSA has been fluctuating, and on 01/02/2019 had increased to 8.85, so he prese nts for further recommendations. He has been reluctant to consider surgery, because of his concerns for impotence and incont inence. He has attempted dietary changes, and naturopathic treatments. At baseline, he has erectile dysfunction, but since he is , and is not sexually act zee, he is not certain what his current erection capacity is. His erections seem weaker. S ometimes, he will wake up in erection in the morning. He denies any difficulties with voiding. He has nocturia x1. He has urinary frequency jane ry 3-4 hours. He denies any urinary tract infections. He has occasional urgency, but denie s any urinary incontinence. He denies any dysuria or hematuria or increased urinary frequen cy. He denies any changes in his bowel habits. He denies any hematochezia or melena or constip ation or diarrhea. Overall, he feels like he continues to do well. However, he states that he recently was no osvaldo to have a right thyroid nodule, and will be undergoing a FNA biopsy in the near future. He has occasional chills, has had change in weight and energy, will sometimes notice "unste adiness" or shakiness of his hands or legs, feels tired and sluggish at times, has had ankle pruritus at times, occasional depression without suicidal ideation, otherwise, 10 point rev iew of systems is negative. He does not smoke. He is . He has 4 children. 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 He states that he just recently sold [employer] property and a [employer] mill, and has until the end of May to move out. His father at age 72 with lymphoma. There is no known family history of pr ostate cancer. Mother is alive at age 79. I spent in excess of 60 minutes with Sukumar today, over 50% of this time spent in counseling regarding prostate cancer and treatment options available, including nontreatment and active surveillance. A note from Dr. Pinon was reviewed. Past Medical History: Diagnosis Date Chest pain High cholesterol Palpitations Prostate cancer (HCC) 07/20/2017 Past Surgical History: Procedure Laterality Date FINGER AMPUTATION right hand , 4 digits HIP SURGERY Right VASECTOMY Outpatient Encounter Medications as of 02/28/2019 Medication Sig Dispense Refill ciprofloxacin (CIPRO) 500 mg tablet Take 1 tab po 1 hour prior to biopsy; then take 1 t ab po every 12 hours thereafter 6 tablet 0 Oneill-3 Fatty Acids (FISH OIL) 1200 MG CAPS Take 1,200 mg by mouth Daily. 30 each 11 pravastatin (PRAVACHOL) 40 MG tablet Take 1 tablet by mouth nightly. 90 tablet 3 Red Yeast Rice Extract (RED YEAST RICE PO) Take 1 tablet by mouth every evening. sildenafil (VIAGRA) 25 MG tablet Take 1 tablet by mouth as needed for Erectile Dysfunct ion. 5 tablet 1 No facility-administered encounter medications on file as of 02/28/2019. Allergies Allergen Reactions Atorvastatin Other (See Comments) Numb lips and tongue Simvastatin Rash and Other (See Comments) Body aches, rash , his head felt foggy Family History Problem Relation Age of Onset Lymphoma Father Social History Socioeconomic History Marital status: Legally Spouse name: Nataly Number of children: 4 Years of education: Not on file Highest education level: Not on file Occupational History Occupation: [employer] Tobacco Use Smoking status: Never Smoker Smokeless tobacco: Never Used Substance and Sexual Activity Alcohol use: No Alcohol/week: 0.0 oz Drug use: No Social History Narrative Exercise:eliptical machine, weights 3 - 4 week Caffeine: 0-1 cup of coffee daily Living situation: lives Alone in own home REVIEW OF SYSTEMS: [] Marked All Negative Constitutional Symptoms: [] Fever [x] Chills [] Headache [] Change in appetite [x] Change in weight [x] Change in energy [] Other: Neurological: [x] Tremors: slightly [] Dizzy Spells [] Numbness/Tingling [] Seizures [] O ther: Endocrine: [] Excessive thirst [] Too hot [] Too cold [x] Tired/Sluggish Gastrointestinal: [] Abdominal pain [] Nausea/Vomiting [] Indigestion/heartburn [] Change in stoo l size [] Change in stool shape [] Change in stool color [] Pain with swallowing [] Other: Cardiovascular: [] Chest Pain [] Rapid heart rate [] High blood pressure [] Other: Integumentary: [] Skin rash [] Boils [x] Persistent itch [] Other: Musculoskeletal: [] Neck Pain [] Joint swelling/pain [] Back pain [] Bone pain [] Other: Respiratory: [] Wheezing [] Frequent cough [] Shortness of breath [] Other: Hematologic/Lymphatic: [] Swollen glands [] Blood clotting issues [] Prior blood transfusions []Other: Psychologic: Are you generally satisfied with your life? yes Do you feel severely depressed? yes Have you considered suicide? no Habits: Do you smoke? no [x] Yes [] No Patient to follow up with PCP regarding positives on review of systems. IPSS (International Prostate Symptom Score) 0=0 - Not at All 1=1 - Less than 1 in 5 times 2=2 - Less than half the time 3=3 - About half the time 4=4 - More than half the time 5=5 - Almost always IPSS (INTERNATIONAL PROSTATE SYMPTOM SCORE) 02/28/2019 1. Incomplete Emptying - How often have you had the sensation of not emptying your bladder? 0 2. Frequency - How often have you had to urinate less than every two hours? 0 3. Intermittency - How often have you found you stopped and started again several times whe n you urinated? 0 4. Urgency - How often have you found it difficult to postpone urination? 1 5. Weak Stream - How often have you had a weak urinary stream? 0 6. Straining - How often have you had to strain to start urination? 0 7. Nocturia - How many times did you typically get up at night to urinate? 1 Total: 2 Quality of Life Due to Urinary Symptoms 0=0 - Delighted 1=1 - Pleased 2=2 - Mostly satisfied 3=3 - Mixed 4=4 - Mostly dissatisfied 5=5 - Unhappy 6=6 - Terrible QUALITY OF LIFE (URINARY) 02/28/2019 If you were to spend the rest of your life with your urinary condition just the way it is n ow, how would you feel about that? 0 PHYSICAL EXAM Vitals: BP 118/86 | Pulse 64 | Resp 16 | Ht 1.829 m (6') | Wt 96.1 kg (211 lb 13.8 oz) | BMI 28.73 kg/m General: Awake, alert, in no acute distress. Speech is fluent. Appears to be stated age. Neck: Supple; No lymphadenopathy. Suggestion of right-sided thyroid nodule. Lungs: Normal respiratory effort, no wheezing, no stridor, no tachypnea. Chest: No rib or bony tenderness. Back: No CVA tenderness. No tenderness to fist percussion of the spine. Abdomen: Soft, nontender, no hepatosplenomegaly. No masses. No guarding; benign. Bladder nondistended. No flank tenderness. Extremities: Non-edematous. Hips and long bones nontender to fist percussion. Neuro: Awake, alert, oriented x3. Normal station and gait. Psychiatric: Mood and affect are normal. Normal judgment. Skin: Warm and dry, no erythematous rash. Groin: No mass. No lymphadenopathy. Genitalia: No penile lesion. Normal in appearance. Penis is circumcised. Scrotum is supp le and nonerythematous with benign contents. No testicular or epididymal mass, nodule, lesi on, swelling, or tenderness. Rectal: No mass, normal sphincter tone. Prostate gland is smooth, elastic, with fullness on the right side, and suggestion of a 6-7 mm firm nodule near the right apex. Prostate is enlarged with gland volume estimated at 35 grams in size. Lateral sulci are intact. Semina l vesicles are not palpably enlarged and are nontender. DIAGNOSTIC DATA: AUA symptom score 02/28/2019 is 2. PSA 01/02/2019 8.85 (7% free) PSA 11/29/2018 8.19 (7% free) PSA 07/11/2017 7.41 (9% free) PSA August 2014 is 3.85. PSA March 2011 is 2.65. PSA November 2008 is 2.12. Prostate Biopsy performed by on 07/20/2017 demonstrated prostatic adenocarcinoma o n "Left Mid" with a GS 3+3=6, and 1% of total biopsy length. "L.Transition Zone" demonstrate d small focus of atypical glands suspicious for carcinoma. All other biopsies were benign. Comprehensive Metabolic Panel 01/02/2019 shows sodium of 144, otherwise normal parameters. A lkaline phosphatase is 48, LFTs are normal. Glucose is 80, BUN 18, creatinine 1.24, GFR 61. Comprehensive metabolic panel 11/29/2018 shows normal electrolytes, glucose 117, BUN 18, crea tinine 1.20, alkaline phosphatase 44, normal LFTs. CBC 01/02/2019 shows WBC 6.3, hemoglobin 14.5, hematocrit 43.3, platelets 133. MRI PELVIS WITHOUT AND WITH IV CONTRAST CLINICAL INFORMATION: Malignant neoplasm of prostate COMPARISON: None PROCEDURE: 1. Axial T1 2. Axial, sagittal, and coronal T2 3. Axial DWI with ADC mapping 4. Axial T2 FS 5. Axial Pre and Post 3D T1 Contrast: 9ML GADAVIST was administered intravenously. FINDINGS: Prostate general: The prostate measures 4.5 cm x 5 cm x 5.1 cm (AP x ML x SI) for a volume of 60 cc. Peripheral zone: There is diffuse mild low T2 signal noted throughout the peripheral zone, suggesting prior radiation changes. No convincing evidence of any discrete suspicious lesions appreciated, although the background change diminishes sensitivity. Transition zone: Typical circumscribed BPH nodules are present. There is diffuse mild low T2 signal identified throughout the transitional zone, suggesting post radiation changes. No convincing evidence of any discrete suspicious lesions appreciated although the background change diminishes sensitivity Anterior fibromuscular stroma: No concerning lesions seen. Pelvic organs: Atrophy of the seminal vesicle seen. No gross evidence of any elmer tumor involvement of the neurovascular bundles appreciated. No enlarged pelvic lymph nodes seen. Urinary bladder is mildly distended. No suspicious lesion noted within the osseous structures, although artifact from right hip metallic hardware diminishes sensitivity. Impression: 1. Mild prostatomegaly. Multiple BPH nodules seen 2. There is diffuse mild low T2 signal identified throughout the prostate, raising the possibility of prior radiation. Within this background, no convincing evidence of discrete suspicious lesions appreciated 3. No enlarged lymph nodes seen Highest PI RADS score: PI-RADS 2: Low (clinically significant cancer is unlikely to be present) Signed by: Francheska Zamorano Amit Sign Date/Time: 01/24/2019 12:24 PM IMPRESSION: 1. Stage T2a, Nx, Mx adenocarcinoma of the prostate, Edgemoor score 3+3 = 6 in 1% of the ti ssue obtained from the left mid gland. He has a very low risk tumor, and has elected active surveillance. 2. Erectile dysfunction. 3. Right thyroid nodule. 4. Prostate hyperplasia. Prostate gland volume 07/20/2017 was 31 cc. PLAN: I had a lengthy discussion with Sukumar regarding prostate cancer and prostate cancer treatmen t options. We discussed prostate cancer biology. We reviewed Zoey scoring and its significance. Christiano adair discussed his MRI imaging. We discussed the full range of treatment options available for prostate cancer including ob servation/active surveillance versus seeking a second opinion versus HIFU versus cryotherapy versus brachytherapy versus external beam radiation therapy and its variants versus open pr ostatectomy versus robotic prostatectomy versus hormone suppression therapy. I used diagram s and illustrations to show Sukumar how each treatment would be performed including potential s willa effects and complications associated with treatment. We discussed the relative advantages and disadvantages of each form of therapy. We discuss ed issues related to impotence and incontinence. We discussed that active surveillance would entail routine monitoring of his PSA and his pr ostate gland to try to determine if there has been a change in prostate tumor volume and pro state tumor characteristics/grading. After a lengthy discussion, Sukumar indicates he would like to proceed with a prostate biopsy. The risks, benefits, and alternatives of a prostate biopsy are discussed in detail. We di scussed doing nothing or seeking a second opinion or continuing serial PSA testing. Risks a re to include but are not limited to bleeding, pain, infection, sampling error, need for add itional procedures, sepsis, failure to diagnose, inherent risks of any surgical procedure an d anesthesia. At his request, a prostate biopsy will be scheduled in the near future. He is given approkwadwo riate written and verbal pre-biopsy instructions. He'll use Fleet enema and Cipro prior to the biopsy. He will avoid aspirin and blood thinners for one week prior to the biopsy. Pending the outcome of his follow-up biopsy, encouraged him to consider a robotic assisted laparoscopic prostatectomy. Given his young age, I told him that the rates of impotence wit h nerve sparing would be low, and that the rates of urinary incontinence would also be low, but that there would be treatment options available for both of these complications if they were to occur. We discussed that his follow-up prostate biopsy could be negative, simply on the basis of s ampling error, given the small size of his prior tumor. However, I told him that brachytherapy, IMRT, SBRT, [facility], and proton radiotherapy wou ld also be acceptable options. Sukumar will continue his regular and customary care and followup with his primary care provid er. I asked Sukumar to notify me immediately if he should experience any difficulties with voiding or if he has any questions or concerns or any problems whatsoever. This document was generated in part using voice recognition software. Frequent wrong word or sound-alike substitutions may have occurred due to the inherent limitations of the voice recognition software. Although I have attempted to edit the content, I have not thoroughly proofread this note, and home performance consultant errors are likely to occur. CC: Boy Rodriguez MD documented in this en counter Plan of Treatment Not on filedocumented as of this encounter Procedures + +--------+ + + + | Procedure Name | Priori | Date/Time | Associated Diagnosis | Comments | | | ty | | | | + +--------+ + + + | LABS - EXTERNAL SCAN | | 01/02/2019 | | Results for this | | | | 12:00 AM | | procedure are in the | | | | PDT | | results section. | + +--------+ + + + | PATHOLOGY - EXTERNAL | | 07/26/2017 | | Results for this | | SCAN | | 12:00 AM | | procedure are in the | | | | PST | | results section. | + +--------+ + + + documented in this encounter Results LABS - EXTERNAL SCAN (01/02/2019 12:00 AM PDT) + + + | Narrative | Performed At | + + + | Ordered by an | | | unspecified provider. | | + + + PATHOLOGY - EXTERNAL SCAN (07/26/2017 12:00 AM PST) + + + | Narrative | Performed At | + + + | Ordered by an | | | unspecified provider. | | + + + documented in this encounter Visit Diagnoses + + | Diagnosis | + + | Prostate cancer (HCC) - Primary Malignant neoplasm of prostate | + + documented in this encounter
--- OUTSIDE RECORDS SUMMARY | ~2019-10-28 | XMS | Encounter Summary ---
Demographics + + + | Address | [address] | | | [place] [address] | + + + | Home Phone [...] Author | [facility] | | | and [place] | + + + | Organization | [facility] | | | and [place] | + + + | Address | Unknown | + + + | Phone | Unavailable | + + + Support + + + + + | Name | Relationship | Address | Phone | + + + + + | Nikia Borges | ECON | [address] | | | | | [place] [address] | | + + + + + Care Team Providers + +------+ + | Care Weighter Name | Role | Phone | + [...] [address] | | | | [place], | [place], | | | | | [place] [address] | [place] [address] | | | | | [phone] | [phone] | | | | | | | [...]
--- OUTSIDE RECORDS SUMMARY | ~2019-10-28 | XMS | Encounter Summary ---
Demographics + + + | Address | [address] | | | [place] [address] | + + + | Home Phone | | + + + | Preferred Language | Unknown | + + + | Marital Status | Legally | + + + | Faith Affiliation | 1013 | + + + | Race | Unknown | + + + | Ethnic Group | Unknown | + + + Author + + + | Author | [facility] | | | and [place] | + + + | Organization | [facility] | | | and [place] [...] | | | | | [place] [address] | | + + + + + Care Team Providers + +------+ + | Care Oil Mixer Name | Role | Phone | + +------+ + | Boy Moran MD | PCP | | + +------+ + Encounter Details +--------+ + + + + | Date | Type | Department | Care Team | Description | +--------+ + + + + | 06/21/ | Abstract | [facility] | Provider, | | | 2019 | | [address] | [address] | | | | | [place] | [address] | | | | | [address] | [place] [address] | | | | | [phone] | | | +--------+ + + + [...] | + +--------+ + + + | PSA, TOTAL AND FREE | Routin | 05/07/2019 | | Results for this | | | e | 9:55 AM | | procedure are in the | | | | PST | | results section. | + +--------+ + + + documented in this encounter Results PSA, Total and Free (05/07/2019 9:55 AM PST) + + + + + + | Component | Value | Ref Range | Performed | Pathologist | | | | | At | Signature | + + + + + + | PSA, Total | 9.02 (A) | 0 - 4 ng/mL | | | + + + + + + | PSA, Free | 0.61 | ng/mL | | | + + + + + + | PSA, | 7 | % | | | | Free/Total | | | | | | ratio | | | | | + + + + + + + + | Specimen | + + | Blood | + + documented in this encounter Visit Diagnoses Not on filedocumented in this encounter"
--- OUTSIDE RECORDS SUMMARY | ~2019-10-28 | XMS | Encounter Summary ---
Demographics + + + | Address | [address] | | | [place] [address] | + + + | Home Phone | | + + + | Preferred Language | Unknown | + + + | Marital Status | Single | + + + | Jainism Affiliation | NON | + + + | Race | White | + + + | Ethnic Group | Not or | + + + Author + + + | Author | [facility] | + + + | Organization | [facility] | + + + | Address | Unknown | + + + | Phone | Unavailable | + + + Support + + +---------+---------+ | Name | Relationship | Address | Phone | + + +---------+---------+ | Anayeli Pennington | ECON | Unknown | nophone | + + +---------+---------+ Care Team Providers + +------+ + | Care Animal Sticker Name | Role | Phone | + [...] Dx) | | | | Surgery at [facility] | [facility], | | | | | [address] | [place] [address] | | | | | Mailcode: CH5P | | | | | | [facility] | | | | | | and Km, | | | | | | Building | | | | | | [place], [place] | | | | | | [address] | | | | | | [phone] | | | +--------+---------+ + + + [...] Pt is to go to ER in [place] if symptoms worsen. He was instructed on [...] | | | | | performed at [facility] | | | | | | [facility] | | | | | | Laboratory. 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
--- OUTSIDE RECORDS SUMMARY | ~2019-10-28 | XMS | Encounter Summary ---
Demographics + + + | Address | [address] | | | [place] [address] | + + + | Home Phone | | + + + | Preferred Language | Unknown | + + + | Marital Status | Legally | + + + | Druze Affiliation | 1013 | + + + | Race | Unknown | + + + | Ethnic Group | Unknown | + + + Author + + + | Author | [facility] | | | and [place] | + + + | Organization | [facility] | | | and [place] [...] | | | | | [place] [address] | | + + + + + Care Team Providers + +------+ + | Care Manager Portable Name | Role | Phone | + [...] | | CARDIOLOGY [address] MAINTENANCE CREW WORKER [address] | | | | | [place], | [place], | | | | | [place] [address] | [place] [address] | | | | | [phone] | [phone] | | | | | | | [...]
--- OUTSIDE RECORDS SUMMARY | ~2019-10-28 | XMS | Encounter Summary ---
Demographics + + + | Address | [address] | | | [place] [address] | + + + | Home Phone | | + + + | Preferred Language | Unknown | + + + | Marital Status | Legally | + + + | Hindu Affiliation | 1013 | + + + | Race | Unknown | + + + | Ethnic Group | Unknown | + + + Author + + + | Author | [facility] | | | and [place] | + + + | Organization | [facility] | | | and [place] [...] | | | | | [place] [address] | | + + + + + Care Team Providers + +------+ + | Care Joy Loading Machine Operator Name | Role | Phone [...] + + | 06/25/ | Office | [facility] | [place], | Palpitations | | 2015 | Visit | CARDIOLOGY [address] | [address] | (Primary Dx); Chest | | | | [place], | [place], | pain in adult; | | | | [place] [address] | [place] [address] | Hypercholesterolemia | | | | [phone] | [phone] | | | | | | | [...] I reviewed records from [facility] for office visit on 05/27/2015. ASSESSMENT: 1. [...] to co me into the ED of [place] where all the original blood work was [...] He is in a class I of [place] [employer] functional class. There is no [...] this chart may have been created with SPARQCode voice recognition software. Occasi onal wrong-word or [...]
--- OUTSIDE RECORDS SUMMARY | ~2019-10-28 | XMS | Encounter Summary ---
Demographics + + + | Address | [address] | | | [place] [address] | + + + | Home Phone [...] + + + | Author | [facility] | | | and [place] | + + + | Organization | [facility] | | | and [place] [...] | | | | | [place] [address] | | + + + + + Care Team Providers + +------+ + | Care Events Specialist Name | Role | Phone | [...] [address] | | | | | [place], [place] | [place] | | | | | [address] | [address] | | | | | [phone] | | | +--------+ + + + [...]
--- OUTSIDE RECORDS SUMMARY | ~2019-10-28 | XMS | Encounter Summary ---
Demographics + + + | Address | [address] | | | [place] [address] | + + + | Home Phone | | + + + | Preferred Language | Unknown | + + + | Marital Status | Legally | + + + | Latter Day Affiliation | 1013 | + + + | Race | Unknown | + + + | Ethnic Group | Unknown | + + + Author + + + | Author | [facility] | | | and [place] | + + + | Organization | [facility] | | [...] | | | | | [place] [address] | | + + + + + Care Team Providers + +------+ + | Care Valve Inserter Name | Role | Phone | + [...] + + | 09/12/ | Telephone | [facility] | [place], | Other (plan of care) | | 2017 | | CARDIOLOGY [address] | [address] | | | | | [place], | [place], | | | | | [place] [address] | [place] [address] | | | | | [phone] | [phone] | | | | | | | [...]
--- OUTSIDE RECORDS SUMMARY | ~2019-10-28 | XMS | Encounter Summary ---
Demographics + + + | Address | [address] | | | [place] [address] | + + + | Home Phone | | + + + | Preferred Language | Unknown | + + + | Marital Status | Legally | + + + | Mosque Affiliation | 1013 | + + + | Race | Unknown | + + + | Ethnic Group | Unknown | + + + Author + + + | Author | [facility] | | | and [place] | + + + | Organization | [facility] | | | and [place] [...] | | | | | [place] [address] | | + + + + + Care Team Providers + +------+ + | Care Metal Furniture Polisher Name | Role | Phone | + [...] + | 08/11/ | Telephone | [facility] | [place], | Lab Order (due for | | 2016 | | CARDIOLOGY [address] | [address] | fasting labs prior | | | | [place], | [place], | to appt) | | | | [place] [address] | [place] [address] | | | | | [phone] | [phone] | | | | | | | [...]
--- OUTSIDE RECORDS SUMMARY | ~2019-10-28 | XMS | Encounter Summary ---
Demographics + + + | Address | [address] | | | [place] [address] | + + + | Home Phone | | + + + | Preferred Language | Unknown | + + + | Marital Status | Legally | + + + | Christian Affiliation | 1013 | + + + | Race | Unknown | + + + | Ethnic Group | Unknown | + + + Author + + + | Author | [facility] | | | and [place] | + + + | Organization | [facility] | | | and [...] | | | | | [place] [address] | | + + + + + Care Team Providers + +------+ + | Care Dividend Deposit Voucher Clerk Name | Role | Phone | [...] unspecified | [address] | [address] | | | | | chest pain | [address] | [place], | | | | | type | [place], | [place] | | | | | Procedures | [place] [address] | [address] | | | | | [place] Nuclear | Phone: | Phone: | | | | | Stress Test | [phone] | [phone] | | | | | (Exercise) | Fax: | Fax: | | | | | CHG | [phone] | [phone] | | | | | MYOCARDIAL | | | | | | | SPECT | | | | | | | MULTIPLE | | | | | | | STUDIES [place] | | | | | | | CV STRS TST | | | | | | | XERS&/OR RX | | | | | | | CONT ECG W/O | | | | | | | I&R [place] | | | | | | | [...] | | ER | [address] | [address] | | | | | FOLLOW-UP | [facility] | [place], | | | | | Procedures | [place], | [place] [address] | | | | | OFFICE MACHINE TECHNICIAN | [place] | Phone: | | | | | | [address] | [phone] | | | | | | Phone: | Fax: | | | | | | [phone] | [phone] | | | | | | Fax: | | | | | | | [phone] | | +--------+--------+ + + + + Encounter Details +--------+---------+ + + + | Date | Type | Department | Care Team | Description | +--------+---------+ + + + | 05/27/ | Office | [facility] | Jr Thompson, | Chest pain, | | 2014 | Visit | CARDIOLOGY [address] | [address] | unspecified chest | | | | [address], | [place], | pain type (Primary | | | | [place] [address] | [place] [address] | Dx); Palpitations | | | | [phone] | [phone] | | | | | | | [...] [place]. He en joys working with the [employer], Le[employer]and building [employer]. He also enjoys working out, walking on [...] decided to come into the ED of [place] where all the original blood work was [...] to co me into the ED of [place] where all the original blood work was negative. B. Today, patient continued with occasional, nonexertional chest discomfort. Patient is usually a very active and healthy individual. 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 He also enjoys working out, walking on tenXer and [employer] machine. There is no signs and symptoms of overt congestive heart failure . He is in a class I of [place] [employer] functional class. There is no [...] weeks. Electronically signed by: Jr Thompson MD [facility] 05/27/2015 Portions of this chart may have been created with [email or web address] voice recognition software. Occasi onal wrong-word or [...] by: | | | Jr Thompson MD [facility] 06/06/2015, 12:48 | | + + + + + + | Narrative | Performed At | + + + | NUCLEAR MEDICINE STRESS TEST REPORT | [facility] | | Patient Name: Sukumar Pennington Study Date: 06/06/2015 | Shon DARIEN | | Primary Care Provider: Nikolas Luis : [facility] | | 1965 Age: 49 y.o. Gender: [...] [address] | [place] | [phone] | | [facility] | | [address] | | | - IMAGING | | [...] JR | | | | | | ([id number]) on 05/27/2015 | | | | | [...]
--- OUTSIDE RECORDS SUMMARY | ~2019-10-28 | XMS | Clinical Summary ---
Demographics + + + | Address | [address] | | | [place] [address] | + + + | Home Phone | | + + + | Preferred Language | Unknown | + + + | Marital Status | Legally | + + + | Uatsdin Affiliation | 1013 | + + + | Race | Unknown | + + + | Ethnic Group | Unknown | + + + Author + + + | Author | [facility] | | | and [place] | + + + | Organization | [facility] | | | and [...] | | | | | [place] [address] | | + + + + + Care Team Providers + +------+ + | Care Agricultural Sales Representative Name | Role | Phone | + [...] | | + + + +---------+------+------+-------+ | [place]-3 Fatty | Take 1,200 mg by | [...] | [employer] | [employer] | [id number] | 02/01/20 | [phone] | | Medica | | MEDICAID HMO [...] Gen | al/Isaac | | 1966 | [phone] | [place] [address] | | | adam | | | 7 (Home) | | + +--------+ +--------+ + + Advance Directives + + + + + | Type | Date Recorded | Patient | Explanation | | | | Technical Internship | | + + + + + | Power of | | | | | | | | | + + + + + | Advance | 05/24/2015 | | Info Given | | Directive | 6:50 PM | | | + + + + +
--- OUTSIDE RECORDS SUMMARY | ~2019-10-28 | XMS | Encounter Summary ---
Demographics + + + | Address | [address] | | | [place] [address] | + + + | Home Phone | | + + + | Preferred Language | Unknown | + + + | Marital Status | Legally | + + + | Catholic Affiliation | 1013 | + + + | Race | Unknown | + + + | Ethnic Group | Unknown | + + + Author + + + | Author | [facility] | | | and [place] | + + + | Organization | [facility] [...] St | | | | | [place] [address] | | + + + + + Care Team Providers + +------+ + | Care Is Project Manager Name | Role | Phone | [...] mixed (Primary Dx); | | | | [place], | [place], | Chest pain in adult; | | | | [place] [address] | [place] [address] | Palpitations | | | | [phone] | [phone] | | | | | | | [...]
--- OUTSIDE RECORDS SUMMARY | ~2019-10-28 | XMS | Encounter Summary ---
Demographics + + + | Address | [address] | | | [place] [address] | + + + | Home Phone | | + + + | Preferred Language | Unknown | + + + | Marital Status | Legally | + + + | Mormon Affiliation | 1013 | + + + | Race | Unknown | + + + | Ethnic Group | Unknown | + + + Author + + + | Author | [facility] | | | and [place] | + + + | Organization | [facility] | | | and [...] | | | | | [place] [address] | | + + + + + Care Team Providers + +------+ + | Care Pack Worker Name | Role | Phone | + +------+ + PCP | Unavailable | + +------+ + Encounter Details +--------+ + + + + | Date | Type | Department | Care Team | Description | +--------+ + + + + | 12/19/ | Hospital | [facility] | | | | 2002 | Encounter | MED CTR XRAY [address] | | | | | | [place] | | | | | | [place] [address] | | | | | | [phone] | | | +--------+ + + + [...]
--- OUTSIDE RECORDS SUMMARY | ~2019-10-28 | XMS | Encounter Summary ---
Demographics + + + | Address | [address] | | | [place] [address] | + + + | Home Phone | | + + + | Preferred Language | Unknown | + + + | Marital Status | Legally | + + + | Adventist Affiliation | 1013 | + + + | Race | Unknown | + + + | Ethnic Group | Unknown | + + + Author + + + | Author | [facility] | | | and [place] | + + + | Organization | [facility] | | [...] | | | | | [place] [address] | | + + + + + Care Team Providers + +------+ + | Care Creative Arts Therapist Name | Role | Phone | + [...] + + | 02/18/ | Office | [facility] | Ben, | Chest pain in adult | | 2016 | Visit | CARDIOLOGY [address] | [address] | (Primary Dx); | | | | [place], | [place], | Palpitations; | | | | [place] [address] | [place] [address] | Hyperlipidemia, | | | | [phone] | [phone] | mixed | | | | | [...] tablet Take 325 mg by mouth Daily. [place]-3 Fatty Acids (FISH OIL) 1200 MG CAPS [...] and ricky led by another provider- Dr. Thompson) from 05/27/2015. LAB RESULTS reviewed during visit today primarily from [facility]: LIPID Lab Results Component Value Date CHOLHDL [...] PLT 144 05/24/2015 I reviewed records from [facility] for office visit on 08/14/2015 which is [...] to co me into the ED of [place] where all the original blood work was [...] angina, dyspnea or palpitations. His energy le vicente is good and he remains physically active exercising on a daily basis without any symptom s. 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 There is no [...] this chart may have been created with Death by Party voice recognition software. Occasi onal wrong-word or [...]
--- OUTSIDE RECORDS SUMMARY | ~2019-10-28 | XMS | Encounter Summary ---
Demographics + + + | Address | [address] | | | [place] [address] | + + + | Home Phone | | + + + | Preferred Language | Unknown | + + + | Marital Status | Single | + + + | Methodist Affiliation | NON | + + + [...] Team Providers + +------+ + | Care 3D Designer Name | Role | Phone | [...] | | | | | Surgery at [facility] [address] [place], [place] | | | | | [address] | [address] | | | | | Mailcode: [facility] | [phone] | | | | | [facility] | | | | | | and Healing, | | | | | | Building | | | | | | [place], [place] | | | | | | [address] | | | | | | [phone] | | | +--------+ + + + [...]
--- OUTSIDE RECORDS SUMMARY | ~2019-10-28 | XMS | Encounter Summary ---
Demographics + + + | Address | [address] | | | [place] [address] | + + + | Home Phone | | + + + | Preferred Language | Unknown | + + + | Marital Status | Legally | + + + | Church Affiliation | 1013 | + + + | Race | Unknown | + + + | Ethnic Group | Unknown | + + + Author + + + | Author | [facility] | | | and [place] | + + + | Organization | [facility] | | | and [place] | + + + | Address | Unknown | + + + | Phone | Unavailable | + + + Support + + + + + | Name | Relationship | Address | Phone | + + + + + | Nikia Borges | ECON | [address] | | | | | [place] [address] | | + + + + + Care Team Providers + +------+ + | Care Director News Name | Role | Phone | + [...] | | | | [address] | [place] [address] | | | | | [place] [address] | | | | | | [phone] | | | +--------+ + + + [...]
--- OUTSIDE RECORDS SUMMARY | ~2019-10-28 | XMS | Encounter Summary ---
Demographics + + + | Address | [address] | | | [place] [address] | + + + | Home Phone | | + + + | Preferred Language | Unknown | + + + | Marital Status | Legally | + + + | Denominational Affiliation | 1013 | + + + | Race | Unknown | + + + | Ethnic Group | Unknown | + + + Author + + + | Author | [facility] | | | and [place] | + + + | Organization | [facility] | | | and [place] [...] | | | | | [place] [address] | | + + + + + Care Team Providers + +------+ + | Care Engraver Copperplate Name | Role | Phone | + [...] + | 05/26/ | Telephone | [facility] | Ben, | Other | | 2017 | | CARDIOLOGY [address] | [address] | | | | | [place], | [place], | | | | | [place] [address] | [place] [address] | | | | | [phone] | [phone] | | | | | | | [...]
--- OUTSIDE RECORDS SUMMARY | ~2019-10-28 | XMS | Encounter Summary ---
Demographics + + + | Address | [address] | | | [place] [address] | + + + | Home Phone | | + + + | Preferred Language | Unknown | + + + | Marital Status | Single | + + + | Buddhist Affiliation | NON | + + + | Race | White | + + + | Ethnic Group | Not or | + + + Author + + + | Author | [facility] | + + + | Organization | [facility] | + + + | Address | Unknown | + + + | Phone | Unavailable | + + + Support + + +---------+---------+ | Name | Relationship | Address | Phone | + + +---------+---------+ | Anayeli Pennington | ECON | Unknown | nophone | + + +---------+---------+ Care Team Providers + +------+ + | Care Medical Dermatologist Name | Role | Phone | + [...] 2006 | Visit | Reconstructive | [address] | Finger Laceration; | | | | Surgery at [facility] [address] | Skin Graft | | | | [address] | [place], [place] | | | | | Mailcode: [facility] | [address] | | | | | [facility] | [phone] | | | | | and Healing, | | | | | | Building | | | | | | Floor [place], [place] | | | | | | [address] | | | | | | [phone] | | | +--------+---------+ + + + [...]
--- OUTSIDE RECORDS SUMMARY | ~2019-10-28 | XMS | Encounter Summary ---
Demographics + + + | Address | [address] | | | [place] [address] | + + + | Home Phone | | + + + | Preferred Language | Unknown | + + + | Marital Status | Legally | + + + | Roman Catholic Affiliation | 1013 | + + + | Race | Unknown | + + + | Ethnic Group | Unknown | + + + Author + + + | Author | [facility] | | | and [place] | + + + | Organization | [facility] [...] | | | | | [place] [address] | | + + + + + Care Team Providers + +------+ + | Care Java Android Developer Name | Role | Phone | + [...] unspecified | [address] | [address] | | | | | chest pain | [address] | [place], | | | | | type | [place], | [place] | | | | | Procedures | [place] [address] | [address] | | | | | [place] Nuclear | Phone: | Phone: | | | | | Stress Test | [phone] | [phone] | | | | | (Exercise) | Fax: | Fax: | | | | | CHG | [phone] | [phone] | | | | | MYOCARDIAL | | | | | | | SPECT | | | | | | | MULTIPLE | | | | | | | STUDIES [place] | | | | | | | CV STRS TST | | | | | | | XERS&/OR RX | | | | | | | CONT ECG W/O | | | | | | | I&R [place] | | | | | | | [...] unspecified | [address] | [address] | | | | | chest pain | [address] | [place], | | | | | type | [place], | [place] | | | | | Procedures | [place] [address] | [address] | | | | | [place] Nuclear | Phone: | Phone: | | | | | Stress Test | [phone] | [phone] | | | | | (Exercise) | Fax: | Fax: | | | | | CHG | [phone] | [phone] | | | | | MYOCARDIAL | | | | | | | SPECT | | | | | | | MULTIPLE | | | | | | | STUDIES [place] | | | | | | | CV STRS TST | | | | | | | XERS&/OR RX | | | | | | | CONT ECG W/O | | | | | | | I&R [place] | | | | | | | [...] + + | 06/06/ | Hospital | [facility] | Nasrin Thompson, | Chest pain, | | 2015 | Encounter | MED CTR NUCLEAR | MD [address] | unspecified chest | | | | MEDICINE [address] | [place], | pain type | | | | [place], | [place] [address] | | | | | [place] [address] | [phone] | | | | | [phone] | | | +--------+ + + + [...] the procedure. 4. There is no | [facility] | | arrhythmia during procedure. [...] by: | | | Nasrin Thompson MD [facility] 06/06/2015, 12:48 | | + + + + + + | Narrative | Performed At | + + + | NUCLEAR MEDICINE STRESS TEST REPORT | [facility] | | Patient Name: Sukumar Pennington Study Date: 06/06/2015 | [facility] | | Primary Care Provider: Nikolas Luis : | [facility] | | 1965 Age: 49 [...] | + + + + + | [facility] | [address] | [place], [place] | [phone] | | [facility] | | [address] | | | - IMAGING | | [...]
--- OUTSIDE RECORDS SUMMARY | ~2019-10-28 | XMS | Encounter Summary ---
Demographics + + + | Address | [address] | | | [place] [address] | + + + | Home Phone | | + + + | Preferred Language | Unknown | + + + | Marital Status | Legally | + + + | Sikh Affiliation | 1013 | + + + | Race | Unknown | + + + | Ethnic Group | Unknown | + + + Author + + + | Author | [facility] | | | and [place] | + + + | Organization | [facility] | | | and [...] [address] | | | | | [place] [address] | | + + + + + Care Team Providers + +------+ + | Care Apprentice Name | Role | Phone | + [...] | | | | ANKIT LEVINE | [place] [address] | | | | | [place] [address] | | | | | | [phone] | | | +--------+ + + + [...]
--- OUTSIDE RECORDS SUMMARY | ~2019-10-28 | XMS | Encounter Summary ---
Demographics + + + | Address | [address] | | | [place] [address] | + + + | Home Phone | | + + + | Preferred Language | Unknown | + + + | Marital Status | Legally | + + + | Protestant Affiliation | 1013 | + + + | Race | Unknown | + + + | Ethnic Group | Unknown | + + + Author + + + | Author | [facility] | | | and [place] | + + + | Organization | [facility] | | | and [place] [...] | | | | | [place] [address] | | + + + + + Care Team Providers + +------+ + | Care Brick Layer Name | Role | Phone | + +------+ + | Nikolas Luis MD | PCP | | + +------+ + Reason for Visit + + + | Reason | Comments | + + + | Follow-up | | + + + | Chest Pressure | | + + + Encounter Details +--------+---------+ + + + | Date | Type | Department | Care Team | Description | +--------+---------+ + + + | 04/27/ | Office | [facility] | Ben, | Chest pain in adult | | 2017 | Visit | CARDIOLOGY [address] | [address] | (Primary Dx); | | | | [place], | [place], | Palpitations; | | | | [place] [address] | [place] [address] | Hyperlipidemia, | | | | [phone] | [phone] | mixed | | | | | [...] + + + | Blood Pressure | 98/62 | 04/27/2017 8:08 AM | | | | | PDT | | + + + + + | Pulse | 60 | 04/27/2017 8:08 AM | regular | | | | PDT | | + + + + + | Temperature | - | - | | + + + + + | Respiratory Rate | 14 | 04/27/2017 8:08 AM | | | | | PDT | | + + + + + | Oxygen Saturation | - | - | | + + + + + | Inhaled Oxygen | - | - | | | Concentration | | | | + + + + + | Weight | 95.5 kg (210 lb 8.6 | 04/27/2017 8:08 AM | | | | oz) | PDT | | + + + + + | Height | 182.9 cm (6') | 04/27/2017 8:08 AM | | | | | PDT | | + + + + + | Body Mass Index | 28.55 | 04/27/2017 8:08 AM | | | | | PDT | | + + + + + documented in this encounter Progress Notes Vida Contreras ARNP - 04/27/2017 7:45 AM PDTFormatting of this note might be differen t from the original. PATIENT NAME: Sukumar Pennington : 1965: AGE: 51 y.o. PRIMARY CARE: Nikolas Luis OUTPATIENT FOLLOW UP VISIT Date of Service: 04/27/2017 HISTORY OF PRESENT ILLNESS: Sukumar Pennington is a 51 y.o. male with a history of mixed hyperlipidemia and chest p ressure. He is being seen today for follow up chest pain. He was last seen 08/24/16 at which time he was to continue same therapeutic medical regimen and follow up in 1 year. Since that time, he has had 1 episode of chest pain that relieved on it's after taking 2 aspirin. He has been going through a divorce. There has been some st ress in life. He has had no other episodes since then. He has continue to exercise on his el liptical for 30 minutes every other day without any symptoms. He denies lightheadedness, diz ziness, palpitations, or leg swelling. MEDICAL, SURGICAL, AND PERSONAL HISTORY Past Medical, Surgical, Family, and Social History are reviewed in EPIC. CURRENT PROBLEMS Patient Active Problem List Diagnosis Chest pain in adult Palpitations Hyperlipidemia, mixed CURRENT MEDICATIONS Current Outpatient Prescriptions Medication Sig Dispense Refill [place]-3 Fatty Acids (FISH OIL) 1200 MG CAPS Take 1,200 mg by mouth Daily. 30 each 11 pravastatin (PRAVACHOL) 40 MG tablet Take 1 tablet by mouth nightly. 30 tablet 11 Red Yeast Rice Extract (RED YEAST RICE PO) Take 1 tablet by mouth every evening. No current facility-administered medications for this visit. ALLERGIES Allergies Allergen Reactions Simvastatin Rash and Other (See Comments) Body aches, rash , his head felt foggy ROS Review of Systems Constitutional: Negative for malaise/fatigue. Respiratory: Negative for cough and shortness of breath. Cardiovascular: Positive for chest pain. Negative for palpitations, leg swelling and PND. Neurological: Negative for dizziness. OBJECTIVE: PHYSICAL EXAM BP 98/62 | Pulse 60 Comment: regular | Resp 14 | Ht 1.829 m (6') | Wt 95.5 kg (210 lb 8. 6 oz) | BMI 28.55 kg/m Physical Exam Constitutional: He appears well-developed and [...] lead Result Value Ref Range INTERPRETATION TEXT Sinus bradycardia with sinus arrhythmia Otherwise normal ECG When compared with ECG of 27-MAY-2015 11:34, No significant change was found Confirmed by JR MANSFIELD MD ([id number]) on 08/24/2016 12:42:31 PM LAB RESULTS reviewed during visit today primarily from [facility]: LIPID Lab Results Component Value Date CHOLHDL 4.1 04/22/2017 LDLEX 125 (A) 04/22/2017 HDLEX 48.3 (A) 04/22/2017 TRIGEX 126 04/22/2017 CHOLEX 198 04/22/2017 CHEMISTRY Lab Results Component Value Date GLU 94 05/24/2015 GLUEX 96 04/22/2017 NA 142 05/24/2015 NAEX 142 04/22/2017 K 4.1 05/24/2015 KEX 4.3 04/22/2017 CL 103 05/24/2015 CLEX 104 04/22/2017 CO2 29 05/24/2015 CO2EX 29 04/22/2017 CALCIUM 9.0 05/24/2015 ALKPHOS 60 05/24/2015 AST 22 05/24/2015 ASTEX 19 04/22/2017 ALT 18 05/24/2015 ALTEX 16 04/22/2017 BILITOT 0.8 05/24/2015 CREA 1.05 05/24/2015 BUN 13 05/24/2015 EGFREX 80 (A) 04/22/2017 CREEX 0.98 04/22/2017 HEMATOLOGY Lab Results Component Value Date WBC 7.4 05/24/2015 HGB 16.3 05/24/2015 HCT 49.0 05/24/2015 PLT 144 05/24/2015 I reviewed records from [facility] for office visit on 08/24/2016 w hich is summarized in the HPI. Above data [...] decided to come into the ED of [place] where all the original blood work wa [...] He is in a class I of [place] Heart [employer] functional class . There is [...] mixed: A. His lipid profile has improved PLAN: 1. The current medical regimen is effective; continue present plan and medications. 2. He will follow up in 1 year, or sooner with concerns. Portions of this chart may have been created with [employer] voice recognition software. Occasi onal wrong-word or [...]
--- OUTSIDE RECORDS SUMMARY | ~2019-10-28 | XMS | Encounter Summary ---
Demographics + + + | Address | [address] | | | [place] [address] | + + + | Home Phone | | + + + | Preferred Language | Unknown | + + + | Marital Status | Single | + + + | Yazidism Affiliation | NON | + + + [...] Team Providers + +------+ + | Care Office Machines Teacher Name | Role | Phone | + +------+ + PCP | Unavailable | + +------+ + Reason for Visit + + + | Reason | Comments | + + + | Patient education | suture rmvl.? | + + + Encounter Details +--------+ + + + + | Date | Type | Department | Care Team | Description | +--------+ + + + + | 09/08/ | Telephone | Plastic and | Dave Cisneros, | Patient education | | 2006 | | Reconstructive | ,PhD [address] | (suture rmvl.?) | | | | Surgery at [facility] [address] [place], [place] | | | | | [address] | [address] | | | | | Mailcode: CH5P | [phone] | | | | | [facility] | | | | | | and Km, | | | | | [facility] | | | | | | Floor [place], [place] | | | | | | [address] | | | | | | [phone] | | | +--------+ + + + [...]
--- OUTSIDE RECORDS SUMMARY | ~2019-10-28 | XMS | Encounter Summary ---
Demographics + + + | Address | [address] | | | [place] [address] | + + + | Home Phone | | + + + | Preferred Language | Unknown | + + + | Marital Status | Legally | + + + | Nondenominational Affiliation | 1013 | + + + | Race | Unknown | + + + | Ethnic Group | Unknown | + + + Author + + + | Author | [facility] | | | and [place] | + + + | Organization | [facility] | | | and [place] [...] | | | | | [place] [address] | | + + + + + Care Team Providers + +------+ + | Care Registered Private Duty Nurse Name | Role | Phone | [...] [address] | | | | | [place], | [place], | | | | | [place] [address] | [place] [address] | | | | | [phone] | [phone] | | | | | | | [...] [address] | [place] | [phone] | | [facility] | | [address], [facility] | | | - LABORATORY [...]
--- OUTSIDE RECORDS SUMMARY | ~2019-10-28 | XMS | Encounter Summary ---
Demographics + + + | Address | [address] | | | [place] [address] | + + + | Home Phone | | + + + | Preferred Language | Unknown | + + + | Marital Status | Legally | + + + | Cheondoism Affiliation | 1013 | + + + | Race | Unknown | + + + | Ethnic Group | Unknown | + + + Author + + + | Author | [facility] | | | and [place] | + + + | Organization | [facility] | | | and [place] | + + + | Address | Unknown | + + + | Phone | Unavailable | + + + Support + + + + + | Name | Relationship | Address | Phone | + + + + + | Nikia Borges | ECON | [address] | | | | | [place] [address] | | + + + + + Care Team Providers + +------+ + | Care Agricultural Engineering Technicians Name | Role | Phone | + +------+ + PCP | Unavailable | + +------+ + Encounter Details +--------+ + + + + | Date | Type | Department | Care Team | Description | +--------+ + + + + | 12/16/ | [facility] | [facility] | Randy Tan MD | | | 2008 | Encounter | MED CTR XRAY [address] | [address] | | | | | [place] | [place] | | | | | [place] [address] | [address] | | | | | [phone] | | | +--------+ + + + [...]
--- OUTSIDE RECORDS SUMMARY | ~2019-10-28 | XMS | Encounter Summary ---
Demographics + + + | Address | [address] | | | [place] [address] | + + + | Home Phone | | + + + | Preferred Language | Unknown | + + + | Marital Status | Legally | + + + | Gnosticist Affiliation | 1013 | + + + | Race | Unknown | + + + | Ethnic Group | Unknown | + + + Author + + + | Author | [facility] | | | and [place] | + + + | Organization | [facility] | | | [...] | | | | | [place] [address] | | + + + + + Care Team Providers + +------+ + | Care Churn Driller Name | Role | Phone | + [...] [address] | | | | | [address] | [place] [address] | | | | | [phone] | | | +--------+ + + + [...]
--- OUTSIDE RECORDS SUMMARY | ~2019-10-28 | XMS | Encounter Summary ---
Demographics + + + | Address | [address] | | | [place] [address] | + + + | Home Phone | | + + + | Preferred Language | Unknown | + + + | Marital Status | Legally | + + + | Lutheran Affiliation | 1013 | + + + | Race | Unknown | + + + | Ethnic Group | Unknown | + + + Author + + + | Author | [facility] | | | and [place] | + + + | Organization | [facility] | | | and [...] | | | | | [place] [address] | | + + + + + Care Team Providers + +------+ + | Care Lockstitch Machine Operator Name | Role | Phone | + +------+ + | Nikolas Luis MD | PCP | | + +------+ + Encounter Details +--------+ + + + + | Date | Type | Department | Care Team | Description | +--------+ + + + + | 01/24/ | Hospital | [facility] | Conversion | Malignant neoplasm | | 2019 | Encounter | [facility] | Transaction, | of prostate (HCC) | | | | [address] | Provider Unknown | | | | | [place], [place] | [phone] | | | | | [address] | (Fax) | | | | | [phone] | | | +--------+ + + + [...] + + + +---------+ + + | [place]-3 Fatty | Take 1,200 mg by | [...]
--- OUTSIDE RECORDS SUMMARY | ~2019-10-28 | XMS | Encounter Summary ---
Demographics + + + | Address | [address] | | | [place] [address] | + + + | Home Phone | | + + + | Preferred Language | Unknown | + + + | Marital Status | Legally | + + + | Samaritan Affiliation | 1013 | + + + | Race | Unknown | + + + | Ethnic Group | Unknown | + + + Author + + + | Author | [facility] | | | and [place] | + + + | Organization | [facility] | | | and [...] | | | | | [place] [address] | | + + + + + Care Team Providers + +------+ + | Care Clerk Travel Reservations Name | Role | Phone | + [...] | 05/26/ | Telephone | [facility] | Ben, | Other | | 2017 | | CARDIOLOGY [address] | [address] | | | | | [place], | [place], | | | | | [place] [address] | [place] [address] | | | | | [phone] | [phone] | | | | | | | [...]
--- OUTSIDE RECORDS SUMMARY | ~2019-10-28 | XMS | Encounter Summary ---
Demographics + + + | Address | [address] | | | [place] [address] | + + + | Home Phone | | + + + | Preferred Language | Unknown | + + + | Marital Status | Legally | + + + | Nondenominational Affiliation | 1013 | + + + | Race | Unknown | + + + | Ethnic Group | Unknown | + + + Author + + + | Author | [facility] | | | and [place] | + + + | Organization | [facility] | | | and [...] | | | | | [place] [address] | | + + + + + Care Team Providers + +------+ + | Care Jewelry Enameler Name | Role | Phone | + [...] + + | 04/27/ | Office | [facility] | Ben, | Chest pain in adult | | 2017 | Visit | CARDIOLOGY [address] | [address] | (Primary Dx); | | | | [place], | [place], | Palpitations; | | | | [place] [address] | [place] [address] | Hyperlipidemia, | | | | [phone] | [phone] | mixed | | | | | [...] Current Outpatient Prescriptions Medication Sig Dispense Refill [place]-3 Fatty Acids (FISH OIL) 1200 MG CAPS [...] was found Confirmed by JR MANSFIELD MD ([id number]) on 08/24/2016 12:42:31 PM LAB RESULTS reviewed during visit today primarily from [facility]: LIPID Lab Results Component Value Date CHOLHDL [...] PLT 144 05/24/2015 I reviewed records from [facility] for office visit on 08/24/2016 w hich [...] decided to come into the ED of [place] where all the original blood work wa [...] He is in a class I of [place] Heart Association functional class . There is [...] this chart may have been created with [employer] voice recognition software. Occasi onal wrong-word or [...]
--- OUTSIDE RECORDS SUMMARY | ~2019-10-28 | XMS | Encounter Summary ---
Demographics + + + | Address | [address] | | | [place] [address] | + + + | Home Phone | | + + + | Preferred Language | Unknown | + + + | Marital Status | Single | + + + | Restoration Affiliation | NON | + + + | Race | White | + + + | Ethnic Group | Not or | + + + Author + + + | Author | [facility] | + + + | Organization | [facility] | + + + | Address | Unknown | + + + | Phone | Unavailable | + + + Support + + +---------+---------+ | Name | Relationship | Address | Phone | + + +---------+---------+ | Anayeli [place] | ECON | Unknown | nophone | + + +---------+---------+ Care Team Providers + +------+ + | Care Gun Perforator Loader Name | Role | Phone | + [...] | 2006 | | Reconstructive | ,PhD [address] | (suture rmvl.?) | | | | Surgery at [facility] [address] [place], [place] | | | | | [address] | [address] | | | | | Mailcode: CH5P | [phone] | | | | | [facility] | | | | | | and Km, | | | | | | [facility] | | | | | | Floor [place], [place] | | | | | | [address] | | | | | | [phone] | | | +--------+ + + + [...]
--- OUTSIDE RECORDS SUMMARY | ~2019-10-28 | XMS | Encounter Summary ---
Demographics + + + | Address | [address] | | | [place] [address] | + + + | Home Phone | | + + + | Preferred Language | Unknown | + + + | Marital Status | Legally | + + + | Temple Affiliation | 1013 | + + + | Race | Unknown | + + + | Ethnic Group | Unknown | + + + Author + + + | Author | [facility] | | | and [place] | + + + | Organization | [facility] | [...] | | | | | [place] [address] | | + + + + + Care Team Providers + +------+ + | Care Team Otr Truck Driver Name | Role | Phone | + +------+ + PCP | Unavailable | + +------+ + Encounter Details +--------+ + + + + | Date | Type | Department | Care Team | Description | +--------+ + + + + | 12/16/ | [facility] | [facility] | Randy Tan MD | | | 2008 | Encounter | MED CTR XRAY [address] | [address] | | | | | [place] | [place] | | | | | [place] [address] | [address] | | | | | [phone] | | | +--------+ + + + [...]
--- OUTSIDE RECORDS SUMMARY | ~2019-10-28 | XMS | Encounter Summary ---
Demographics + + + | Address | [address] | | | [place] [address] | + + + | Home Phone | | + + + | Preferred Language | Unknown | + + + | Marital Status | Legally | + + + | Episcopalian Affiliation | 1013 | + + + | Race | Unknown | + + + | Ethnic Group | Unknown | + + + Author + + + | Author | [facility] | | | and [place] | + + + | Organization | [facility] | | | and [...] | | | | | [place] [address] | | + + + + + Care Team Providers + +------+ + | Care Sealer Operator Name | Role | Phone | [...] | [address] | [address] | [place] | | | | | Procedures | [place], | [address] Phone: | | | | | NEW PATIENT | [place] [address] | [phone] | | | | | | Phone: | Fax: | | | | | | [phone] | [phone] | | | | | | Fax: | | | | | | | [phone] | | + +--------+ + + + + Encounter Details +--------+---------+ + + + | Date | Type | Department | Care Team | Description | +--------+---------+ + + + | 02/28/ | Office | [facility] [place] [facility] | Aleksander Dang A, | Prostate cancer | | 2019 | Visit | [address] | MD [address] | ([facility]) (Primary Dx) | | | | [place], [place] | [place] | | | | | [address] | [address] | | | | | [phone] | | | +--------+---------+ + + + [...] biopsy. 2. Use one Fleets enema (available hpgv-cqa-woambur at any drug store without prescription ) approximately 2 hours before the prostate biopsy. 3. Take one Cipro antibiotic tablet one hour prior to the prostate biopsy. You may eat and drink prior to the procedure. It is not necessary to fast. If you have any questions about this procedure, or the preparation, please call ALEJANDRO Humphries, at [phone]. Expect to see blood in the urine [...] by a specially trained technologist called a machine records units supervisor. Getting ready foryour test You may be [...] supplements you are taking. This includes any dwlu-zjw-ayhbvqg medicines such as aspirin or ibuprofen.You might [...] on your healt h Date Last Reviewed: 10/25/201619996332-4195 [employer]. [address] [place] [address]. All righ ts reserved. This information is [...] at 31 cc prostate, and naila vering [place] grade 3+3 = 6 adenocarcinoma in 1% of the total length of course submitted fr om the left mid peripheral zone. Left transition zone course reported JORDAN. He favored proton radiotherapy, but his insurance would not cover this treatment. Dr. Nicky sexton subsequently recommended [facility] in [place], but the patient never presented for this treatment. He states that he once again recently attempted to determine if 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 CC: Boy [...]
--- OUTSIDE RECORDS SUMMARY | 2019-10-28 16:22 | XMS ---
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 - 2 Visits in 30 Days CARE PROVIDERS There are no care providers on record at this time. Benson has no Care Guidelines for this patient. Travis VISIT COUNT (12 MO.) [address] TOTAL 2 NOTE: Visits indicate total known visits. ED/UCC VISIT TRACKING (12 MO.) 10/28/2019 16:21 [facility] [place] TYPE: Emergency COMPLAINT: - LOWER LEFT ABD PA[facility]2019 [facility] COMPLAINT: - AMBULANCE INPATIENT VISIT TRACKING (12 MO.) No inpatient visits to display in this time frame [id number]
[2019-10-28] MEDS ORDERED: NORCO 5-325 TA1 EACH PO (18:14)
== END 2019-10-28 18:31 | disposition home or self-care (01) ==
LOC: ED 16:20
DX: N28.89 Other specified disorders of kidney and ureter (principal); Z88.8 Allergy status to other drugs, medicaments and biological substances
CPT/HCPCS: 80053; 81001; 84153; 85025; 96374; 99284-25; J1885

== ENCOUNTER 2021-03-03 07:37 | Observation (INO) | payer OTHER ==
[~2021-03-03] VITALS: Ht 185.4 cm; Wt 94.0 kg
[~2021-03-03 07:37] MED LIST: NORCO 5-325 TA1 EACH PO
[2021-03-03] MEDS ORDERED: VITAMIN D3125 MC2 PO (08:26)
[2021-03-03] MEDS ORDERED: MULTIPLE VITAM1 EAC2 PO (08:26)
[2021-03-03] MEDS ORDERED: ASTAXANTHIN4 MG PO (08:27)
[2021-03-03] MEDS ORDERED: COD LIVER OIL1 EAC3 PO (08:27)
[2021-03-03] MEDS ORDERED: ZINC30 M1 PO (08:27)
--- NOTE | 2021-03-03 12:38 | NUR ---
03/03/21 1238 Aisha Mercer 1210-PATIENT ARRIVED TO PACU ON 6L MASK RR EVEN ORAL AIRWAY IN PLACE. NONAROUSABLE. DRESSING TO THROAT CDI. IVF INFUSING SR. 1221-PATIENT AROUSING TO VERBAL STIMULI OPENING EYES RAISING RIGHT ARM TO RN. PATIENT ORIENTED TO PACU ORAL AIRWAY REMOVED. PATIENT ON 6L MASK RR EVEN. 1230-PATIENT AWAKE REPORTS "JUST COMING OUT OF IT" HOB ELEVATED DR. MARR TALKING TO PATIENT. DRESSING CDI. DENIES NAUSEA REPORTS "FEELS WEIRD" 1235-PATIENT AWAKE RR EVEN 95% RA.
--- NOTE | 2021-03-03 13:28 | NUR ---
Patient arrived to the floor, a&ox4. Patient's hob elevated, airway is clear, oxygen saturation is 93% on room air. Patient reports 4/10 neck pain, tolerable at this time, declined pain medication. Jello provided. Trach kit at bedside. IV fluids started per provider order. Patient oriented to room and call light. Dressing to neck is CDI, tiny speck of sarosang drainage on dressing. Patient denies needs at this time.
--- NOTE | 2021-03-03 14:41 | NUR ---
Patient resting, hob elevated. Patient reports he is doing fine, pain level tolerable. Anterior neck dressing is CDI-unchanged. No notable swelling to neck tissue surrounding incision. Patient's airway patent, oxygen per cpox is 92% on room air. Patient has no needs. Personal supplies and call light within reach.
--- NOTE | 2021-03-03 15:25 | NUR ---
Patient doing well, assisted to bathroom then back to bed. Patient reports pain to incision is 4/10, tolerable and declined medication. Cpox intact, vitals stable. Patient voided. No current needs. Personal supplies and call light within reach.
--- NOTE | 2021-03-03 16:22 | NUR ---
THIS RN RECEIVED REPORT FROM DO ALLEN. THIS RN TO ASSUME CARE OF PT.
--- NOTE | 2021-03-03 16:45 | NUR ---
THIS RN IN PTS ROOM TO CHECK ON PT. PT STATES THAT HE IS DOING GOOD AND WAS ABLE TO GET UP AND VOID. PT ABLE TO PLUG HIMSELF BACK INTO SCD'S AND CPOX. PT ON PHONE WITH DAUGHTER BUT ABLE TO STATE TO THIS RN THAT HE NEEDED NOTHING FURTHER AT THIS TIME.
[2021-03-03] MEDS ORDERED: PREDNISOLONE ACE5 ML OS (16:59)
[2021-03-03] MEDS ORDERED: TERBINAFINE HC250 MG PO (16:59)
[2021-03-03] MEDS ORDERED: DORZOLAMIDE-TIM10 ML OPTH (17:00)
[2021-03-03] MEDS ORDERED: SILDENAFIL CIT100 MG PO (17:01)
--- NOTE | 2021-03-03 17:45 | NUR ---
ADVANCED PTS DIET TO REGULAR. THIS RN IN PTS TO SEE IF HE WANTED MORE TO ORDER. PT WANTED YOGURT, FRUIT AND SOUP. PT STATES THAT HE HAS NO CONCERNS AT THIS TIME AND IS DOING WELL OTHERWISE.
--- NOTE | 2021-03-03 17:48 | NUR ---
PATIENT UP TO BATHROOM AND BACK BED, IND. VITALS AND I&O'S CHARTED. PATIENT HAS A FEW QUESTIONS ABOUT HIS PROCEDURE AND MEDS, RN NOTIFIED. CALL LIGHT IN REACH. NO FURTHER NEEDS AT THIS TIME.
--- NOTE | 2021-03-03 18:05 | NUR ---
MED REC COMPLETE
--- NOTE | 2021-03-03 19:09 | OR ---
[facility] [address] [place], [place] [address] Signed DATE OF OPERATION: 03/03/2021 SURGEON: Holley Marr MD PREOPERATIVE DIAGNOSES: 1. Right lower lobe thyroid mass 39 mm symptomatic, [place] category #3 fine-needle aspiration biopsy. 2. Euthyroid chemically and clinically. 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 PROCEDURE: Right thyroid lobectomy with isthmusectomy. ANESTHESIA: General endotracheal and [place]keon SCREEN VENT BINDER INDICATIONS: This 55-year-old white man is a patient of Dr. Boy Rodriguez and was referred with a large right thyroid nodule 39 mm in size in the lower pole. The patient has been aware of the nodule for several years. An ultrasound at [facility] in 2018 confirmed a 39 mm right thyroid nodule. He underwent thyroid ultrasound in [place] in 2019 and underwent fine-needle aspiration biopsy, which was said to be negative for malignancy. Since that time, he underwent ultrasound once again at [facility] in 2020, under the direction of Dr. Rodriguez, his primary provider. The nodule was 39 mm in size and essentially unchanged. There were two additional nodules in the left lobe, both less than 10 mm in size. The patient does not have specific dysphagia, but does describe "voice fatigue" and fullness of his neck. Clinical examination confirms a rather bulky right thyroid nodule. I performed ultrasound-guided fine-needle aspiration biopsy on this nodule, which returned as a [place] category #3 lesion. Under the circumstances of his FNA biopsy as well as his symptoms, he is offered right thyroid lobectomy for treatment as well as for diagnosis. He understands the risks of bleeding, infection, parathyroid loss, recurrent laryngeal and external laryngeal nerve injury as well as possible need for additional treatment should malignancy be found. Understanding all this, he wished to proceed. Electronically Signed By: HOLLEY MARR MD 03/03/21 1909 PATIENT NAME: KULDIP PRETTY OPERATIVE REPORT DATE OF : 63 REPORT #: [id number] PHYSICIAN: HOLLEY MARR MD PCP: BOY RODRIGUEZ MD REPORT IS CONFIDENTIAL AND NOT TO BE RELEASED WITHOUT AUTHORIZATION [facility] [address] [place], [place] [address] Signed FINDINGS: The thyroid itself was relatively bulky in part related to the nodule. It was relatively extensively extending posteriorly and much larger upper pole was noted as well. Meticulous care was taken to provide near total right thyroid lobectomy. A small nub of thyroid tissue was left in situ in the region of passage of the recurrent laryngeal nerve. Both parathyroid glands were identified and unharmed. Frozen pathology confirmed a benign Hurthle cell tumor in this specimen examined. Final pathology is pending. Of special note, the thyroid had a multitude of small vessels associated with it requiring far more ligation of blood vessels as well as application of hemoclips, but there was no untoward bleeding and he is likely to do well. DESCRIPTION OF PROCEDURE: The patient was brought to the operating room and given a general endotracheal anesthetic. A glide scope was required as he had a rather prominent epiglottis. Once intubated, a shoulder roll was placed and arms were placed at the side and mild neck extension afforded. The anterior neck and upper chest were prepared with a chlorhexidine solution and draped sterilely. Natural skin creases were identified and the mid anterior neck area was marked in a natural skin fold. An incision was made from the sternocleidomastoid muscle bilaterally in the medial aspect and dissection carried through the dermis with sharp dissection. Electrocautery was used to transect the platysmal muscle. Superior and inferior flaps were developed using blunt and electrocautery dissection. Gelpi retractors were placed and midline strap muscles identified and the avascular plane incised longitudinally. This allowed for elevation of the sternohyoid and ultimately sternothyroid muscles. The underlying thyroid was bulky and relatively vascular with multiple blood vessels. The thyroid nodule was relatively soft and easily palpable in the right lower pole. With meticulous care, the loose areolar attachments were divided sharply, laterally and superiorly and inferiorly. Small blood vessels were secured with 4-0 silk ties or alternatively particular in the upper pole small clips. Individual ligation of the superior polar vessels was undertaken so as to minimize hazard to the external laryngeal nerve. Inferiorly, similar dissection was undertaken. In time, the thyroid lobe, which was rather bulky including relatively long superior pole aspect was rolled toward the midline sequentially. Ultimately, the inferior parathyroid and superior parathyroid glands could be identified. A dense nub of thyroid tissue was noted in the area highly probable for entry of the recurrent laryngeal nerve to the trachea and this was left in situ and divided sharply well away from what may have been the superior aspect of the right recurrent laryngeal nerve. Transection was undertaken toward the midline and using additional dissection including 4-0 silk sutures as necessary closer to the trachea itself, the ligament of Veliz was divided and thyroid rolled to its avascular plane over the trachea. The isthmus was then secured with Electronically Signed By: HOLLEY MARR MD 03/03/21 1909 PATIENT NAME: KULDIP PRETTY OPERATIVE REPORT DATE OF : 63 REPORT #: [id number] PHYSICIAN: HOLLEY MARR MD PCP: BOY RODRIGUEZ MD REPORT IS CONFIDENTIAL AND NOT TO BE RELEASED WITHOUT AUTHORIZATION [facility] [address] [place], [place] [address] Signed sequential hemostats and the parenchyma divided with electrocautery. The parenchymal rents were secured with 3-0 silk suture. Irrigation was undertaken and although the recurrent laryngeal nerve itself was not identified, its anatomic position was well established. Dissection in the posterior aspect of the thyroid was undertaken with the extracapsular technique of Keita, so as to minimize nerve injury as well. There was no untoward bleeding. The parenchyma of thyroid that remained which was no larger than 1 cm in size was hemostatic. Tisseel was applied to the raw surface and other areas. Irrigation was undertaken and there was no untoward bleeding. The right thyroid lobe was sent for frozen pathology. Closure was then undertaken with reapproximation of the midline strap muscles with interrupted 2-0 Vicryl and the platysmal layer reapproximated with 2-0 Vicryl as well. The skin was closed with running subcuticular of 4-0 Vicryl. Steri-Strips were applied as was an Acticoat silver sponge dressing. Blood loss was estimated at 25 mL in aggregate far more than usual, mostly related to extensive vascular changes of the thyroid. At this point, the frozen pathology returned by Dr. Haile and was reported as a benign Hurthle cell tumor with no evidence of extracapsular invasion. The patient was extubated and transferred to recovery room in good condition having suffered no complications. Sponge, needle, and instrument counts reported as correct x3. Holley Marr MD /MODL /[id number] cc: Dr. Boy Rodriguez Copies: ~ Electronically Signed By: HOLLEY MARR MD 03/03/21 1909 PATIENT NAME: ANA MARIAYESSYKULDIP OPERATIVE REPORT DATE OF : 63 REPORT #: [id number] PHYSICIAN: HOLLEY MARR MD PCP: BOY RODRIGUEZ MD REPORT IS CONFIDENTIAL AND NOT TO BE RELEASED WITHOUT AUTHORIZATION
--- NOTE | 2021-03-03 19:54 | NUR ---
REPORT RECEIVED FROM ALEJANDRO BURNETT. pt SITTING IN BED, HOB ELEVATED. SPO2 93% ON RA. IVF INFUSING WNL. NO REQUESTS AT THIS TIME. DISCUSSING WITH RNS NAME OF TUMOR MD DISCUSSED WITH pt. CALL LIGHT IN REACH.
--- NOTE | 2021-03-03 21:47 | NUR ---
pt RESTING IN BED AWAKE. ASSESSMENT COMPLETE. pt RATES PAIN 3/10 AT INCISION SITE. SCHEDULED TYLENOL ADMINISTERED. pt DENIES SOB. SPO2 WNL ON RA. CPOX ON. DRESSING WITH SMALL SPOTS SS DRAINAGE, SHADOWING. NO NEW DRAINAGE NOTED. HOB ELEVATED. INSTRUCTED pt TO SLEEP WITH HOB ELEVATED TO AVOID SWELLING AT SURGICAL SITE. pt VERBALIZES UNDERSTANDING. ICE WATER AND APPLE JUICE PROVIDED. CALL LIGHT IN REACH.
--- NOTE | 2021-03-04 00:30 | NUR ---
IV PUMP ALARMING, NEW BAG IVF INFUSING WNL. pt CLOSING EYES. SPO2 93% ON RA, CPOX ON. CALL LIGHT IN REACH.
--- NOTE | 2021-03-04 02:53 | NUR ---
pt RESTING IN BED. AWAKE, STATES HAVING DIFFICULTY SLEEPING. OFFERED TO CLOSE CURTAINS, WARM BLANKET, BREAK FROM SCDS. pt DENIES ANY NEEDS. ASSESSMENT COMPLETE. HOB REMAINS ELEVATED. DRAINAGE UNCHANGED ON DRESSING. CPOX ON, SPO2 WNL ON RA. pt DENIES SOB. CALL LIGHT IN REACH. IVF INFUSING WNL.
--- NOTE | 2021-03-04 05:49 | NUR ---
DRESSING UNCHANGED THROUGHOUT SHIFT, SCANT SHADOWING. pt DENIES SOB, NO EDEMA NOTED. PAIN WELL CONTROLLED WITH SCHEDULED TYLENOL. CPOX IN PLACE. HOB ELEVATED THROUGHOUT SHIFT. IVF INFUSING WNL.
--- NOTE | 2021-03-04 06:20 | NUR ---
pt AWAKE IN BED WORKING ON [employer]. RATES PAIN 1.5/10 AT INCISION. SCHEDULED MEDICATION ADMINISTERED FOR PAIN CONTROL. CPOX IN PLACE, SPO2 WNL ON RA. VSS. CALL LIGHT IN REACH. APPLE JUICE PROVIDED.
--- NOTE | 2021-03-04 07:27 | NUR ---
THIS RN RECEIVED REPORT FROM ECHO ALLEN. PT IS AWAKE THIS AM AND STATES THAT HE IS DOING WELL AND HAS NO COMPLAINTS AND IS READY FOR BREAKFAST THIS AM. PT DOESN'T HAS A HORSE VOICE, AND DRESSING APPEARS TO BE UNCHANGED FROM YESTERDAY, PT RATES PAIN 1/10.
--- NOTE | 2021-03-04 09:30 | NUR ---
It was my pleasure to round with Mr. Pennington this morning and inquire regarding his care while here in the hospital. Mr. Pennington reports that he has had "tremendous care" stating that Laurence, Sachi, and Lexie have "all done a wonderful job." He added, "The staff is great, they are all very responsive." Mr. Pennington denied taking any home medictions, and reported that the staff had been explaining his fluids to him, and he felt like he had a good explanations of medication for anesthesia prior to surgery. Mr Pennington reports no complaints, or concerns at this time, and he denies questions regarding his care.
--- NOTE | 2021-03-04 10:26 | NUR ---
PT CALL LIGHT ON. PUMP ALARMING, "DISTAL OCCULSION." PT REPORTS HE LOCKED HIS IV SO HE COULD GET DRESSED. PT ASSIED WITH SALINE LOCK TO DRESS. PT DRESSES SELF, NO ASSISTANCE NEEDED. IV FLUIDS RESTARTED. NO ADDITIONAL REQUESTS OR COMPLAINTS. CALL LIGHT WITHIN REACH.
[2021-03-04] MEDS ORDERED: ACETAMINOPHEN500 MG PO (12:45)
--- NOTE | 2021-03-04 13:13 | NUR ---
Patient vitals, I&Os are complete. Patient is getting ready to discharge.
--- NOTE | 2021-03-05 15:48 | PATH ---
[facility] [address] [place], [place] [address] Signed SPECIMEN(S): A RIGHT THYROID LOBE AND ISTHMUS SPECIMEN SOURCE: A. RIGHT THYROID LOBE AND ISTHMUS CLINICAL HISTORY: Thyroid nodule, right. FROZEN SECTION DIAGNOSIS: A. Right thyroid lobe and isthmus: Encapsulated Hurthle cell lesion. No gross evidence of capsular invasion or microscopic evidence of capsular invasion a call center support representative section frozen. No evidence of malignancy on call center support representative section frozen. (Dr. Haile, 03/03/21, 12:03 PM) Frozen section diagnoses called to Dr. Jones. AI (under the direct supervision of a pathologist) The Gross Description was prepared using a voice recognition system. The report was reviewed for accuracy; however, sound-alike word errors, addition and/or deletions may occur. If there is any question about this report, please contact Client Services. FINAL PATHOLOGIC DIAGNOSIS: Right thyroid lobe and isthmus, right hemithyroidectomy: - Hurthle cell adenoma (3.5 cm in greatest dimension). - Background with benign diffuse nodular hyperplasia. - One parathyroid gland identified. DDF:smn:C2NR MICROSCOPIC EXAMINATION: Histologic sections of all submitted blocks are examined by light microscopy. These findings, together with the gross examination, support the pathologic diagnosis. GROSS DESCRIPTION: The specimen, labeled "ES, A," and designated on the requisition "right thyroid lobe and isthmus," is received fresh for frozen section diagnosis and consists of a 26.8 g, 6.0 cm from superior to inferior, 4.1 cm from medial to lateral, 2.8 cm from anterior to posterior hemithyroidectomy specimen. The medial surface has a rough, 1.3 x 1.3 cm surgical resection margin which is inked yellow. The anterior surface of the specimen is inked blue and the posterior surface of PATIENT NAME: KULDIP PRETTY PATHOLOGY DATE OF : 63 REPORT #: [id number] PHYSICIAN: HALINA PATHOLOGY PCP: VIKTORIA RODRIGUEZ MD REPORT IS CONFIDENTIAL AND NOT TO BE RELEASED WITHOUT AUTHORIZATION [facility] [address] [place], [place] [address] Signed the specimen is inked black. The thyroid lobe is horizontally, serially sectioned to show a 3.5 x 3.0 x 2.1 cm encapsulated nodule in the mid-inferior pole. There is no gross evidence of capsular lesion. A call center support representative section is submitted for frozen in AFR1. The remaining parenchyma is brown, homogenous, grossly unremarkable, and additional discrete mass/lesion is not identified. The specimen is submitted entirely as follows: A1 remainder of frozen section A2 one end perpendicularly sectioned A3-A25 midportion of specimen submitted sequentially A26 one end perpendicularly sectioned PERFORMING LABORATORY: [facility], [address] [address] (CLIA# [id number]). The technical component was performed by [facility], [address] [place] [id number] (Pattern Attendant: Luz Marina Webber MD; CLIA# [id number]). [facility], [address] [place] [place] [place] [address]. Diagnostician: Aleksander Turpin DO Pathologist Electronically Signed 03/05/2021 Copies: ~ PATIENT NAME: KULDIP PRETTY PATHOLOGY DATE OF : 63 REPORT #: [id number] PHYSICIAN: HALINA SIMOMNS PCP: VIKTORIA RODRIGUEZ MD REPORT IS CONFIDENTIAL AND NOT TO BE RELEASED WITHOUT AUTHORIZATION
== END 2021-03-04 13:25 | disposition home or self-care (01) ==
LOC: DS 07:37 → MS 08:15 → EDSTATUS 08:15 → MS 12:55 → DS 12:56 → MS 03-04 13:25
PROVIDERS: ADMIT Surgery; ATTEND Surgery
PROC: 0GTH0ZZ Resection of Right Thyroid Gland Lobe, Open Approach (ICD-10-PCS; principal; 2021-03-04)
DX: D34 Benign neoplasm of thyroid gland (principal); E78.00 Pure hypercholesterolemia, unspecified; Z88.8 Allergy status to other drugs, medicaments and biological substances; Z85.46 Personal history of malignant neoplasm of prostate
CPT/HCPCS: 00320; J0131; J0330; J0690; J1100; J2001; J2405; J2704; J3010; J7121